=== PATIENT | female | born 1955 | race Caucasian/White ===

== ENCOUNTER 2022-10-13 11:46 | Outpatient (REF) | payer MEDICARE, SELFPAY ==
[2022-10-13 13:52] LABS: Hematocrit 41.2 % (37.0-47.0); Hemoglobin 12.5 g/dl (12.0-16.0); Mean Corpuscular HGB Conc 30.3 g/dl (31.0-35.0); Mean Corpuscular Hemoglobin 22.1 pg (27.0-33.0); Mean Corpuscular Volume 72.9 fL (80.0-98.0); Mean Platelet Volume 11.4 fL (9.4-12.3); Platelet Count 228 X10*3/uL (160-400); Red Blood Count 5.65 X10*6/uL (4.20-5.50); Red Cell Distribution Width 16.3 % (11.0-16.0); White Blood Count 7.6 X10*3/uL (4.8-10.8)
[2022-10-13 14:11] LABS: Alanine Aminotransferase 21 U/L (0-31); Albumin Level 4.4 g/dL (3.5-5.0); Alkaline Phosphatase 99 U/L (39-117); Anion Gap 14 (12-20); Aspartate Amino Transferase 17 U/L (5-31); Bilirubin Total 0.5 mg/dL (0.0-1.0); Blood Urea Nitrogen 20 mg/dL (9-16); Calcium 9.4 mg/dL (8.4-10.2); Carbon Dioxide 24 mmol/L (22-29); Chloride 110 mmol/L (96-108); Cholesterol 260 mg/dL; Estimated Glomerular Filt Rate > 60; Glucose Fasting 98 mg/dL (60-99); HDL Cholesterol 41 mg/dL; LDL Cholesterol Calculated 168 mg/dl; Potassium 4.6 mmol/L (3.3-5.1); Sodium 143 mmol/L (135-145); Total Protein 6.9 g/dL (6.5-8.0); Triglycerides 255 mg/dL
[2022-10-13 14:26] LABS: TSH reflex Free T4 1.87 uIU/mL (0.32-4.0)
== END 2022-10-13 11:47 | disposition home or self-care (01) ==
LOC: HO.WFDLDS 11:46
PROVIDERS: Visit Provider Nurse Practitioner Family
DX: Z00.00 Encounter for general adult medical examination without abnormal findings (principal); Z20.2 Contact with and (suspected) exposure to infections with a predominantly sexual mode of transmission
CPT/HCPCS: 36415; 80053; 80061; 84443; 85027

== ENCOUNTER 2022-11-10 11:40 | Outpatient (REF) | payer MEDICARE, SELFPAY ==
[2022-11-10 14:33] LABS: Hematocrit 39.8 % (37.0-47.0); Hemoglobin 12.1 g/dl (12.0-16.0); Mean Corpuscular HGB Conc 30.4 g/dl (31.0-35.0); Mean Corpuscular Hemoglobin 22.7 pg (27.0-33.0); Mean Corpuscular Volume 74.5 fL (80.0-98.0); Mean Platelet Volume 12.5 fL (9.4-12.3); Platelet Count 231 X10*3/uL (160-400); Red Blood Count 5.34 X10*6/uL (4.20-5.50); Red Cell Distribution Width 16.2 % (11.0-16.0); White Blood Count 6.9 X10*3/uL (4.8-10.8)
[2022-11-10 14:46] LABS: Cholesterol 178 mg/dL; HDL Cholesterol 41 mg/dL; Iron 77 mcg/dL (30-160); LDL Cholesterol Calculated 95 mg/dl; Percent Iron Saturation 29 % (15-50); Total Iron Binding Capacity 263 mcg/dL (228-428); Triglycerides 212 mg/dL; Unsaturated Iron Binding 186 ug/dL
[2022-11-10 14:53] LABS: Ferritin 235 ng/mL (10-250)
[2022-11-10 15:38] LABS: Immature Retic Fraction 11.7 % (3.0-15.9); Retic HGB Equivalent 26.9 pg (30.0-35.0); Reticulocyte Percent 1.2 % (0.5-1.8); Reticulocytes Absolute 0.065 X10*6/uL (0.026-0.095)
== END 2022-11-10 11:41 | disposition home or self-care (01) ==
LOC: HO.WFDLDS 11:40
PROVIDERS: Visit Provider Nurse Practitioner Family
DX: D64.9 Anemia, unspecified (principal); E78.5 Hyperlipidemia, unspecified
CPT/HCPCS: 36415; 80061; 82728; 83540; 85027; 85045

== ENCOUNTER 2022-11-19 13:16 | Outpatient (REF) | payer MEDICARE, SELFPAY ==
--- NOTE | ~2022-11-19 | CT_ITS ---
EXAMINATION: CT CHEST SCREENING CLINICAL INFORMATION: Current smoker. 47 pack year history. COMPARISON: None available. TECHNIQUE: Multidetector volumetric CT imaging of the chest is performed without contrast using low dose technique. Additional 2D coronal and sagittal reformatted images and axial 3D maximum intensity projection (MIP) images are generated on the CT workstation. This CT examination was performed using dose optimization techniques as appropriate, variously including the following: *Automated exposure control *Adjustment of mA and/or kV according to patient size (this includes techniques or standardized protocols for targeted exams where dose is matched to indication/reason for exam; i.e. extremities or head) *Use of iterative reconstruction technique DLP: 44 mGy-cm FINDINGS: LUNGS: I'll emphysema. Increased groundglass attenuation and reticular markings in the medial right lower lobe adjacent to bony osteophyte, question evidence of early or interstitial disease versus scarring or compressive atelectasis related to bony osteophyte. No pulmonary nodule. No endobronchial or endotracheal lesion. MEDIASTINUM: The mediastinum is normal. CORONARY ARTERY CALCIFICATION: Mild PLEURA: There is no pleural effusion. No pleural mass or thickening. AXILLA: No lymphadenopathy. UPPER ABDOMEN: Unremarkable OSSEOUS STRUCTURES: Mild degenerative changes of the spine. CT/CT lung screening IMPRESSION: Mild emphysema. Question early changes of interstitial lung disease at the right lung base. Mild coronary artery calcification. ASSESSMENT: Lung-RADS category 2: Benign RECOMMENDATION: Annual low-dose chest CT follow-up recommended.
== END 2022-11-19 13:17 | disposition home or self-care (01) ==
LOC: HO.CT 13:16
PROVIDERS: PCP Nurse Practitioner Family; Visit Provider Physician Assistant Medical
DX: Z12.2 Encounter for screening for malignant neoplasm of respiratory organs (principal); F17.210 Nicotine dependence, cigarettes, uncomplicated
CPT/HCPCS: 71271; G0296

== ENCOUNTER 2022-12-03 13:40 | Outpatient (REF) | payer MEDICARE, SELFPAY ==
--- NOTE | ~2022-12-03 | MM_ITS ---
EXAMINATION: MM SCREENING DIGITAL BREAST TOMOSYNTHESIS, BILATERAL CLINICAL INFORMATION: Screening. Asymptomatic. The lifetime risk of breast cancer based on the Tyrer-Cuzick Model is 7.4%. COMPARISON: Mammography: This study is compared with prior exams dating back to 2019. TECHNIQUE: Digital breast tomosynthesis is performed in both the craniocaudal and mediolateral oblique views along with computer-aided detection (CAD). Synthesized 2D images are generated from the tomosynthesis. FINDINGS: There are scattered areas of fibroglandular density (ACR BI-RADS breast composition Category b). There are no significant masses, abnormal calcifications, or other abnormalities. MM/MM tomosynthesis screening BI IMPRESSION: No mammographic evidence of malignancy. ASSESSMENT: BI-RADS BI-RADS 1 - Negative RECOMMENDATION: Routine annual mammography screening. 1 year F/U This examination should not preclude the clinical evaluation of a suspicious palpable abnormality. This patient's information was entered into a reminder system with a target due date for their next mammogram.
--- NOTE | ~2022-12-03 | MM_ITS ---
EXAMINATION: BONE DENSITOMETRY CLINICAL INDICATION: Menopause. COMPARISON: This is the patient's baseline examination. TECHNIQUE: Using a [employer] DXA System (software version: 13.1) manufactured by [employer], dual-energy x-ray absorptiometry was performed of the lumbar spine and left hip. The images are of good technical quality. Summary results are attached. FINDINGS: LEFT FEMUR, NECK: BMD 0.849 g/cm2, Z-score 0.1, T-score -1.4, osteopenia. LEFT FEMUR, TOTAL: BMD 0.921 g/cm2, Z-score 0.5, T-score -0.7, normal. AP SPINE L1-L4: BMD 1.078 g/cm2, Z-score 0.7, T-score -0.8, normal. IDENTIFIED RISK FACTORS: Early menopause, osteoporosis, secondary osteoporosis, tobacco use (current smoker). HISTORY OF FRACTURE: None listed. MEDICATIONS: None listed. MM/XR DEXA axial skeleton IMPRESSION: 1. DIAGNOSIS: Osteopenia based on the lowest T-score value of -1.4 in the femoral neck applying World Health Organization criteria. 2. 10-YEAR FRACTURE RISK PREDICTION, FRAX: Major osteoporotic fracture (clinical spine, forearm, hip or shoulder) 5.0%. Hip fracture 0.8%. 3. Treatment Recommendations: NOF guidelines recommend consideration for treatment in postmenopausal women and men age 50 and older presenting with the following: -A hip or vertebral (clinical or morphometric) fracture. -T-score less than or equal to -2.5 at the femoral neck or spine after appropriate evaluation to exclude secondary causes. -Low bone mass at the hip or spine and a 10-year fracture probability by FRAX of greater than or equal to 3% for hip fracture or greater than or equal to 20% for major osteoporotic fracture based on the [place] adapted WHO algorithm. 4. Other Recommendations: All treatment decisions require clinical judgment and consideration of individual patient factors, including patient preferences, comorbidities, previous drug use, risk factors not captured in the FRAX model (e.g. frailty, falls, vitamin D deficiency, increased bone turnover, interval significant decline in bone density) and possible under or overestimation of fracture risk by FRAX. Additional medical evaluation for secondary cause of low bone mineral density may be appropriate. FUTURE SCAN RECOMMENDATION: People with diagnosed cases of osteoporosis or at high risk for fracture should have regular bone mineral density tests. For patients eligible for Medicare, routine testing is allowed once every 2 years. The testing frequency can be increased to one year for patients who have rapidly progressing disease, those who are receiving or discontinuing medical therapy to restore bone mass, or have additional risk factors.
== END 2022-12-03 13:41 | disposition home or self-care (01) ==
LOC: HO.MAMMO 13:40
PROVIDERS: PCP Nurse Practitioner Family; Visit Provider Nurse Practitioner Family
DX: Z12.31 Encounter for screening mammogram for malignant neoplasm of breast (principal); Z13.820 Encounter for screening for osteoporosis; Z78.0 Asymptomatic menopausal state
CPT/HCPCS: 77063; 77067; 77080

== ENCOUNTER → 2022-12-03 14:15 | Outpatient (BNV) | payer MEDICARE, SELFPAY | PROVIDERS: PCP Nurse Practitioner Family; Visit Provider Radiology Diagnostic Radiology | DX: Z12.31 Encounter for screening mammogram for malignant neoplasm of breast (principal) | CPT/HCPCS: 77063; 77067 ==

== ENCOUNTER 2022-12-13 10:52 | Outpatient (REF) | payer MEDICARE, SELFPAY ==
[2022-12-13 14:29] LABS: Immature Retic Fraction 10.9 % (3.0-15.9); Retic HGB Equivalent 25.8 pg (30.0-35.0); Reticulocyte Percent 0.9 % (0.5-1.8); Reticulocytes Absolute 0.049 X10*6/uL (0.026-0.095)
[2022-12-13 15:40] LABS: Iron 73 mcg/dL (30-160); Percent Iron Saturation 29 % (15-50); Total Iron Binding Capacity 248 mcg/dL (228-428); Unsaturated Iron Binding 175 ug/dL
[2022-12-13 15:42] LABS: Ferritin 238 ng/mL (10-250)
[2022-12-13 15:56] LABS: Folate 9.8 ng/mL (> or = 4.0); Vitamin B12 441 pg/mL (200-900)
[2022-12-14 22:57] LABS: Erythropoietin (EPO) 8.3 mIU/mL (2.6-18.5)
== END 2022-12-13 10:53 | disposition home or self-care (01) ==
LOC: HO.WFDLDS 10:52
PROVIDERS: Visit Provider Nurse Practitioner Family
DX: D64.9 Anemia, unspecified (principal)
CPT/HCPCS: 36415; 82607; 82668; 82728; 82746; 83540; 85045

== ENCOUNTER → 2022-12-14 13:10 | Outpatient (BNVA) | payer MEDICARE, SELFPAY | PROVIDERS: PCP Nurse Practitioner Family; Visit Provider Physician Assistant ==

== ENCOUNTER 2022-12-28 14:47 | Outpatient (AMB) | payer MEDICARE, SELFPAY ==
[2022-12-28 14:55] VITALS: BP 134/66; PULSE 77; RESP 12; TEMP 36.1; O2SAT 99; BMI 29.1
--- NOTE | 2022-12-28 14:55 | MHC.PC.OV ---
Vital Signs 12/28/22 14:55 Height 5 ft 2 in Weight 159 lb 4 oz BMI 29.1 BP 134/66 Blood Pressure Location Rt brachial Position Sitting Respiration 12 Pulse 77 Pulse Source Pulse Oximeter Temp 97 F Temp Source Temporal Artery Scan Pulse Oximetry (%) 99 Oxygen Delivery Method Room Air Intake Visit Reasons: 6 wks HLD, neck pain, anemia Intake Note: Patient states that she is still concerned about the numb feeling she gets in her arms. Internet Marketer Required: No Accompanied by: Self / Same As Patient Allergies Penicillins Allergy (Mild, Verified 12/28/22 15:05) Rash Medication List - Last Reconciled 12/28/22 by Susan Maria CNP atorvastatin 20 mg PO BEDTIME 30 days bupropion HCl (Wellbutrin SR) 150 mg PO BID 30 days gabapentin 300 mg PO BID 30 days naproxen 500 mg PO BID PRN 30 days Tobacco use date assessed: 10/28/22 Fall risk assessment: 1 Fall in past year Last assessed Fall Risk: 12/28/22 Dental Screening Did you have a dental visit in the last 12 months?: Yes Did you have a dental problem in the last 6 months where you did not have access to dental care?: No Was dental information given to patient?: Patient has dentist HPI HPI Comments History of Present Illness Details 67-year-old female presents for hyperlipidemia, anemia, and neck pain follow-up. He was referred to Hematology for h/o anemia. She recently had normal labs including iron studies. Per motor vehicle assembler, Dr. Cullen labs are currently normal and therefore patient does not need consultation at this time. She reports continued intermittent numbness to her bilateral fingers especially upon waking up in the morning and while lying down holding a book over her head. No acute symptoms at this time. She notes she stopped smoking last month while taking Welbutrin which was ordered for smoking cessation. [facility] Medical History Anemia Hyperlipidemia Nicotine dependence, cigarettes, uncomplicated Postmenopausal Surgical History History of umbilical hernia repair Family History Father Prostate cancer Mother Cardiac arrest Social History Household Members: Family Both parents involved: No Caregiver staying overnight: No Housing: House Are you a primary healthcare market consultant to a significant other at home: No Do you presently have visiting nurse or other home services: No 75 years or older and lives alone: No Alcohol intake: former Patient Tobacco Use Status: Former Tobacco user Cigarettes Per Day: 10 Years Smoked: onset 20yo, 1ppd x 47yrs, now 1/2ppd, 45pyh e-Cigarette/Vaping Use: Never Used service: No Current occupational status: retired Cognitive needs: No Hearing needs: No Vision needs: No Review of Systems Const Details: Const Denies chills, Denies fatigue, Denies fever(s), Denies headache(s) and Denies weakness ENT Denies dizziness and Denies headache(s) Card Denies chest pain, Denies lightheadedness, Denies dyspnea and Denies other (Palpitations) Resp Denies cough, Denies dyspnea, Denies wheezing and Denies other ( shortness of breath) GI Denies abdominal pain, Denies melena, Denies hematochezia, Denies change in bowel habits, Denies dyspepsia and Denies nausea Denies hematuria and Denies dysuria Musc Denies abnormal gait, Denies myalgias, Denies arthralgias, Denies numbness and Denies tingling Skin/Breast Denies rash, Denies unusual bruising and Denies wounds Neuro Denies abnormal gait, Denies dizziness, Denies headache(s), Denies memory loss, Denies numbness, Denies Sensory deficit (Neuro), Denies tingling and Denies weakness Psych Denies anxiety, Denies depression, Denies memory loss Endo Denies cold intolerance, Denies fatigue, Denies heat intolerance, Denies polydipsia and Denies polyuria Aller/Immun Denies wheezing Physical exam (Primary Care) Vital Signs: Last Vital Signs Temp 97 F 12/28/22 14:55 Pulse 77 12/28/22 14:55 Resp 12 12/28/22 14:55 BP 134/66 12/28/22 14:55 Pulse Ox 99 12/28/22 14:55 Oxygen Delivery Method Room Air 12/28/22 14:55 BMI result Body Mass Index 29.1 Tobacco/Smoking Status: Tobacco use Status Tobacco use date assessed 10/28/22 12/28/22 15:04 Patient Tobacco Use Status Former Tobacco user 12/28/22 15:04 e-Cigarette/Vaping Use Never Used 12/28/22 15:04 Const Other: General: no acute distress and well developed Nutritional Appearance: well nourished Orientation/consciousness: patient oriented x3 [facility] Head: Yes normocephalic and Yes atraumatic Eyes General: appearance normal, both eyes and all related structures Pupils: Equal, round and reactive pupils present EOM: EOMs intact bilaterally Resp Effort & Inspection: normal respiratory effort Auscultation: clear to auscultation bilaterally Cardio Rate: regular rate Rhythm: regular rhythm Heart sounds: S1 normal heart sound present, S2 normal heart sound present, no gallops, no murmurs and no rubs GI Palpation (GI): No Abdominal aortic bruit present, Soft to palpation, nontender, No hepatosplenomegaly present and No Rebound tenderness present Auscultation: normal bowel sounds General: Yes no CVA tenderness Back/Spine/Pelvis Back: no CVA tenderness Cervical Spine: cervical ROM normal and No Cervical spine tenderness Thoracic/Lumbar Spine: thoraco-lumbar ROM normal, No pain with thoraco-lumbar ROM, No thoracic spinal tenderness and No lumbar spinal tenderness Extrem General: Yes normal to inspection, No edema and No calf tenderness Skin General: warm and dry. Normal skin color. Normal skin turgor Lesions: no lesions Rashes: no rashes Trauma: no lacerations or abrasions Wounds: no wounds Nails: normal Neuro General: patient oriented x3, gait normal and no focal neuro deficit Cranial nerves: Yes Equal, round and reactive pupils present Cognition (Neuro): normal cognition Gait exam (Neuro): Normal gait present Sensory Exam: No Sensory deficit (Neuro) Psych Appearance: grossly normal Affect: normal affect Attitude: cooperative Thought process: Normal thought process present Assessment and Plan Assessment & Plan (1) Hyperlipidemia: Code(s): E78.5 - Hyperlipidemia, unspecified Plan: Current lipid levels improved from previous Continue to take atorvastatin as prescribed Limit foods high in saturated fat and avoid foods high in trans fat Follow-up in 1 month for complete physical exam Verbalized understanding and agreed with treatment plan. (2) Anemia: Code(s): D64.9 - Anemia, unspecified Plan: Current H&H and iron profile is normal Return with symptoms such as fatigue or weakness Verbalized understanding and agreed with the plan. (3) Bilateral hand numbness: Code(s): R20.0 - Anesthesia of skin Plan: Reports continued intermittent numbness to her bilateral fingers especially upon waking up in the morning and while lying down holding a book over her head. Advised to get outstanding x-ray of the neck done Avoid strenuous activities such as prolonged elevation of her arms while reading Continue to take naproxen and gabapentin as prescribed Follow-up with worsening or new symptoms Verbalized understanding and agreed with treatment plan. Coding Level of Care Code Est Pt Level 3 (88988) Diagnoses Hyperlipidemia E78.5 Anemia D64.9 Bilateral hand numbness R20.0
== END 2022-12-28 15:33 | disposition home or self-care (01) ==
PROVIDERS: PCP Nurse Practitioner Family; Visit Provider Nurse Practitioner Family
DX: E78.5 Hyperlipidemia, unspecified (principal); D64.9 Anemia, unspecified; R20.0 Anesthesia of skin
CPT/HCPCS: 99213

== ENCOUNTER 2023-01-18 13:24 | Outpatient (REF) | payer MEDICARE, SELFPAY ==
--- NOTE | ~2023-01-18 | XR_ITS ---
EXAMINATION: XR SOFT TISSUE NECK CLINICAL INDICATION: Cervicalgia COMPARISON: None available. TECHNIQUE: 2 views of the soft tissue neck were obtained. FINDINGS: Soft tissue films of the neck demonstrate a normal larynx, pharynx and upper trachea. No soft tissue swelling or opaque foreign body is demonstrated. Disc spaces and facet joints are well-maintained. XR/XR soft tissue neck IMPRESSION: Unremarkable examination.
--- NOTE | ~2023-01-18 | XR_ITS ---
EXAMINATION: XR SHOULDER, RIGHT CLINICAL INFORMATION: Right shoulder paresthesias COMPARISON: None available. TECHNIQUE: AP external rotation, Grashey, scapular Y, and axillary views of the right shoulder. FINDINGS: The bones and soft tissues are normal. No fracture. Glenohumeral and acromioclavicular alignment is anatomic with normal joint space. No abnormal soft tissue calcifications. XR/XR shoulder RT min 2V IMPRESSION: Normal right shoulder.
== END 2023-01-18 13:25 | disposition home or self-care (01) ==
LOC: HO.XRAY 13:24
PROVIDERS: PCP Nurse Practitioner Family; Visit Provider Nurse Practitioner Family
DX: R20.0 Anesthesia of skin (principal); M54.2 Cervicalgia
CPT/HCPCS: 70360; 73030

== ENCOUNTER 2023-03-25 08:53 | Outpatient (AMB) | payer MEDICARE, SELFPAY ==
[2023-03-25 08:56] VITALS: BP 154/70; PULSE 75; RESP 13; TEMP 36.6; O2SAT 98
--- NOTE | 2023-03-25 08:56 | A.OFFPC_ITS ---
Vital Signs 03/25/23 08:56 03/25/23 09:23 Height 5 ft 2 in Weight 164 lb 2 oz BMI 30.0 BP 154/70 H 150/70 H Blood Pressure Location Rt brachial Rt brachial Position Sitting Sitting Respiration 13 Pulse 75 Pulse Source Pulse Oximeter Temp 97.8 F Temp Source Oral Pulse Oximetry (%) 98 Oxygen Delivery Method Room Air Intake Visit Reasons: follow up medication Intake Note: Patient is here to follow up regarding medication. Patient reports she stopped taking Gabapentin due to eating a drastic amount of food, hallucinations, and overall not feeling right. Patient reports she needs a refill on Atorvastatin and Naproxen and she also needs to restart the Buproprion. Manager Of Purchasing Required: No Accompanied by: Self / Same As Patient Allergies Penicillins Allergy (Mild, Verified 03/25/23 09:04) Rash Medication List - Last Reconciled 03/25/23 by Susan Maria CNP atorvastatin 20 mg PO BEDTIME 30 days bupropion HCl (Wellbutrin SR) 150 mg PO BID 30 days naproxen 500 mg PO BID PRN 30 days Tobacco use date assessed: 03/25/23 Fall risk assessment: No Falls in past year Last assessed Fall Risk: 03/25/23 Dental Screening Dental Screen Date: 03/25/23 Did you have a dental visit in the last 12 months?: Yes Did you have a dental problem in the last 6 months where you did not have access to dental care?: No Was dental information given to patient?: Patient has dentist HPI HPI Comments History of Present Illness Details 68-year-old female presents with request for medication management. She was prescribed gabapentin for bilateral hand numbness. She reports adverse reaction to gabapentin which includes increased appetite, visual hallucinations, and not feeling right. She request refills of atorvastatin, naproxen, and bup ropion. She states she resumed smoking cigarette a month ago and has been smoking 5 cigarettes daily. She denies acute symptoms at this time. She reports history of hypertension and states she does not recall being on antihypertensive medication. She notes that her former PCP performed an EKG 3 years ago and she was informed she had a-fib. She states that no treatment was recommended and she never followed up. [facility], [facility] Medical History Nicotine dependence, cigarettes, uncomplicated Anemia Hyperlipidemia Postmenopausal Surgical History History of umbilical hernia repair Family History Father Prostate cancer Mother Cardiac arrest Social History Household Members: Family Both parents involved: No Caregiver staying overnight: No Housing: House Are you a primary animal care giver to a significant other at home: No Do you presently have visiting nurse or other home services: No 75 years or older and lives alone: No Alcohol intake: former Patient Tobacco Use Status: Current everyday Tobacco user Tobacco use type: Cigarette Cigarettes Per Day: 5 Years Smoked: onset 20yo, 1ppd x 47yrs, now 1/2ppd, 45pyh, Restarted 03/20/23 e-Cigarette/Vaping Use: Never Used service: No Current occupational status: retired Cognitive needs: No Hearing needs: No Vision needs: No Review of Systems Const Details: Const Denies chills, Denies fatigue, Denies fever(s), Denies headache(s) and Denies weakness ENT Denies dizziness and Denies headache(s) Card Denies chest pain, Denies lightheadedness, Denies dyspnea and Denies other (Palpitations) Resp Denies cough, Denies dyspnea, Denies wheezing and Denies other ( shortness of breath) GI Denies abdominal pain, Denies melena, Denies hematochezia, Denies change in bowel habits, Denies dyspepsia and Denies nausea Denies hematuria and Denies dysuria Musc Denies abnormal gait, Denies myalgias, Denies arthralgias, Denies numbness and Denies tingling Skin/Breast Denies rash, Denies unusual bruising and Denies wounds Neuro Denies abnormal gait, Denies dizziness, Denies headache(s), Denies memory loss, Denies numbness, Denies Sensory deficit (Neuro), Denies tingling and Denies weakness Psych Denies anxiety, Denies depression, Denies memory loss Endo Denies cold intolerance, Denies fatigue, Denies heat intolerance, Denies polydipsia and Denies polyuria Aller/Immun Denies wheezing Physical exam (Primary Care) Vital Signs: Last Vital Signs Temp 97.8 F 03/25/23 08:56 Pulse 75 03/25/23 08:56 Resp 13 03/25/23 08:56 BP 150/70 H 03/25/23 09:23 Pulse Ox 98 03/25/23 08:56 Oxygen Delivery Method Room Air 03/25/23 08:56 BMI result Body Mass Index 30.0 Tobacco/Smoking Status: Tobacco use Status Tobacco use date assessed 03/25/23 03/25/23 09:07 Patient Tobacco Use Status Current everyday Tobacco 03/25/23 09:07 Tobacco use type Cigarette 03/25/23 09:06 e-Cigarette/Vaping Use Never Used 03/25/23 09:04 Const Other: General: no acute distress and well developed Nutritional Appearance: well nourished Orientation/consciousness: patient oriented x3 HENMT Head: Yes normocephalic and Yes atraumatic Eyes General: appearance normal, both eyes and all related structures Pupils: Equal, round and reactive pupils present EOM: EOMs intact bilaterally Resp Effort & Inspection: normal respiratory effort Auscultation: clear to auscultation bilaterally Cardio Rate: regular rate Rhythm: regular rhythm Heart sounds: S1 normal heart sound present, S2 normal heart sound present, no gallops, no murmurs and no rubs GI Palpation (GI): No Abdominal aortic bruit present, Soft to palpation, nontender, No hepatosplenomegaly present and No Rebound tenderness present Auscultation: normal bowel sounds General: Yes no CVA tenderness Back/Spine/Pelvis Back: no CVA tenderness Cervical Spine: cervical ROM normal and No Cervical spine tenderness Thoracic/Lumbar Spine: thoraco-lumbar ROM normal, No pain with thoraco-lumbar ROM, No thoracic spinal tenderness and No lumbar spinal tenderness Extrem General: Yes normal to inspection, No edema and No calf tenderness Skin General: warm and dry. Normal skin color. Normal skin turgor Lesions: no lesions Rashes: no rashes Trauma: no lacerations or abrasions Wounds: no wounds Nails: normal Neuro General: patient oriented x3, gait normal and no focal neuro deficit Cranial nerves: Yes Equal, round and reactive pupils present Cognition (Neuro): normal cognition Gait exam (Neuro): Normal gait present Sensory Exam: No Sensory deficit (Neuro) Psych Appearance: grossly normal Affect: normal affect Attitude: cooperative Thought process: Normal thought process present Assessment and Plan Assessment & Plan (1) Hypertension: Code(s): I10 - Essential (primary) hypertension Qualifiers: Hypertension type: primary hypertension Qualified Code(s): I10 - Essential (primary) hypertension Plan: Resting blood pressure is 150/70, above goal of less than 140/90 She reports history of hypertension but does not recall taking antihypertensive Amlodipine ordered. Take as prescribed. Instructed on adverse reaction to monitor and report Low-sodium diet encouraged Follow-up in 1 week for a nurse visit for blood pressure check Return in 1 month or sooner with symptoms or concerns Verbalized understanding and agreed with treatment plan. She reports history of AFib without treatment or follow-up Heart regular rate and rhythm EKG performed in the office and revealed normal sinus rhythm, normal axis, prolonged QT no hypertrophy, no ST-T changes Follow-up with symptoms or concerns. Would refer to Cardiology Verbalized understanding and agreed with treatment plan. (2) Hyperlipidemia: Code(s): E78.5 - Hyperlipidemia, unspecified Plan: Recent lipid levels was in October, improved from previous. Triglycerides 212, total cholesterol 178, LDL 95, HDL 41 Continue to take atorvastatin as prescribed Advised to limit foods high in saturated fat and avoid foods high trans fat Routine exercise encouraged Will recheck lipid levels. Advised to fast for 10-12 hours (may drink water home) and get blood work done before next visit Follow-up in 1 month Verbalized understanding and agreed with treatment plan. (3) Smoking 1/2 pack a day or less: Code(s): F17.210 - Nicotine dependence, cigarettes, uncomplicated Plan: She states she resumed smoking cigarette a month ago and has been smoking 5 cigarettes daily Instructed on the health risks and complications of cigarette smoking Smoking cessation encouraged Wellbutrin refilled. Advised to take as prescribed Follow-up in 1 month return sooner with symptoms or concerns Verbalized understanding and agreed with treatment plan. Medications: New amlodipine 2.5 mg PO DAILY 30 days 30 tabs 3RF Refilled bupropion HCl (Wellbutrin SR) Take 150 mg daily for the first 3 days, then 150 mg BID 150 mg PO BID 60 tabs 2RF 30 days Coding Level of Care Code Est Pt Level 4 (84054) Diagnoses Primary hypertension I10 Hypertension type: primary hypertension Hyperlipidemia E78.5 Smoking 1/2 pack a day or less F17.210
[2023-03-25 09:23] VITALS: BP 150/70
== END 2023-03-25 09:38 | disposition home or self-care (01) ==
PROVIDERS: PCP Nurse Practitioner Family; Visit Provider Nurse Practitioner Family
DX: I10 Essential (primary) hypertension (principal); E78.5 Hyperlipidemia, unspecified; F17.210 Nicotine dependence, cigarettes, uncomplicated
CPT/HCPCS: 99214

== ENCOUNTER 2023-03-25 13:00 | Outpatient (RCR) | payer MEDICARE, SELFPAY ==
[2023-03-15 13:03] VITALS: BP 150/80; PULSE 75; O2SAT 96
--- NOTE | 2023-03-22 11:56 | MHC.PT.EP ---
[facility] [place] [facility] [place] [facility] [place] [facility] [address] Gabriel Murphy [address] [phone] F: [phone] F: [phone] F: [phone] F: [phone] Physical Therapy Plan of Care Date of Evaluation: 03/15/23 Date of Surgery: Diagnosis: M54.2 Cervicalgia, R20.0 Anesthesia of skin, Neck pain on R side *Numbness of upper extremity signed by Susan Maria CNP date of referral 11/02/22 Assessment: Pt is a RHD 68 y/o female with PMH history of hyperlipidemia, umbilical hernia repair, and (HTN and AFIB per pt not on medical record). Pt presents with elevated blood pressure today. Pt expressing history of R sided neck pain with R>L UE daily parathesias which radiates into her whole hand on the right and down side of L shoulder. Pt also expressing left lateral arm sx. Pt reports disturbed sleep secondary to her symptoms. Pt is unable to reach overhead due to her sx. Pt currently presents with elevated blood pressure Pt denies history of headaches, DTRs 2+ symmetrical bicep/tricep. Neuro exam was negative for any strength asymmetries ROM R UE slightly more painful end ranges IR>ER vs L, (+) cervical quadrant testing. Pt will be seen in PT twice weekly to address sx which appear consistent with cervical radiculopathy. Pt exhibits good rehab potential. Frequency and Duration: The patient will be seen 2x/week x 4 weeks Short Term Goals: 1. Pt will express centralization of R UE sx to the height of the elbow. 2. Pt will demonstrate initiation/awareness of posture during ADLS/IADLS. 3. Pt will demonstrate improved sleep tolerance. 4. Increase strength of scapular stabilizers. Senior Care Goals: 1. Pt will demonstrate I HEP. 2. Pt will demonstrate centralization of sx. 3. Pt will resume sleep MOD I without R UE sx radiating down arm. 4. Strength lower and middle trap 5/5. 5. Demonstrate good lifting techniques/safe body mechanics 3:3 trials. Treatment Plan: Modalities to reduce pain, spasms and effusion. Manual therapy to restore motion and function. Therapeutic exercise to improve strength and flexibility. Neuromuscular re-education for posture and balance. Therapeutic activities to return to functional activities of daily living. Electronically signed by: Mary Clark PT, DPT Please sign and return to therapist. Thank you for your referral.
== END 2023-06-14 13:24 | disposition home or self-care (01) ==
LOC: HO.PTWFD 13:00
PROVIDERS: PCP Nurse Practitioner Family; Visit Provider Nurse Practitioner Family
DX: M54.2 Cervicalgia (principal); R20.0 Anesthesia of skin
CPT/HCPCS: 97110; 97140; 97162; 97535

== ENCOUNTER 2023-04-26 12:32 | Outpatient (AMB) | payer MEDICARE, SELFPAY ==
--- NOTE | 2023-04-26 12:35 | A.OFFPC_ITS ---
Vital Signs 04/26/23 12:36 04/26/23 13:01 Height 5 ft 2 in Weight 164 lb 2 oz BMI 30.0 BP 140/72 H 136/60 Blood Pressure Location Lt brachial Rt brachial Position Sitting Sitting Pulse 80 Pulse Source Pulse Oximeter Intake Visit Reasons: CPE, HLD, HTN, smoking ceassation Intake Note: Patient is here for her physical, hypertension and smoking cessation. Allergies Penicillins Allergy (Mild, Verified 04/26/23 12:48) Rash Medication List - Last Reconciled 04/26/23 by Susan Maria CNP amlodipine 2.5 mg PO DAILY 30 days atorvastatin 20 mg PO BEDTIME 30 days bupropion HCl (Wellbutrin SR) 150 mg PO BID 30 days naproxen 500 mg PO BID PRN 30 days Tobacco use date assessed: 04/26/23 Fall risk assessment: No Falls in past year Last assessed Fall Risk: 04/26/23 Dental Screening Dental Screen Date: 04/26/23 Did you have a dental visit in the last 12 months?: Yes Did you have a dental problem in the last 6 months where you did not have access to dental care?: No Was dental information given to patient?: Patient has dentist HPI HPI Comments History of Present Illness Details 68-year-old female presents for a comple te physical exam She admits to taking her medications as prescribed without adverse reactions She offers no complaints and denies acute symptoms at this time She notes that she currently smokes 4 cigarettes daily. She notes that she intends to completely stop smoking on 05/16/2023. She denies drinking alcohol or recreational drug use Last mammogram was in 11/2022: normal Last colonoscopy was over 10 years ago: benign polyps. She has an order for colonoscopy. She notes that the will call to schedule an appointment for colonoscopy next month She notes that her last pap smear test was at age 47: normal She notes that she has not been vaccinated for shingles or pneumonia Last Dexa scan was in 11/2022: osteopenia Last LDCT was in 11/2022: benign [facility] Medical History Nicotine dependence, cigarettes, uncomplicated Anemia Hyperlipidemia Postmenopausal Surgical History History of umbilical hernia repair Family History Father Prostate cancer Mother Cardiac arrest Social History Household Members: Family Both parents involved: No Caregiver staying overnight: No Housing: House Are you a primary skin care consultant to a significant other at home: No Do you presently have visiting nurse or other home services: No 75 years or older and lives alone: No Alcohol intake: former Patient Tobacco Use Status: Current everyday Tobacco user Tobacco use type: Cigarette Cigarettes Per Day: 5 Years Smoked: onset 20yo, 1ppd x 47yrs, now 1/2ppd, 45pyh, Restarted 03/20/23 e-Cigarette/Vaping Use: Never Used service: No Current occupational status: retired Cognitive needs: No Hearing needs: No Vision needs: No Review of Systems Const Details: Denies chills, Denies fatigue, Denies fever(s), Denies headache(s) and Denies weakness HEENT Denies change in vision, Denies dizziness, Denies headache(s), Denies hearing loss, Denies nasal congestion, Denies sinus pain, Denies sinus pressure and Denies sore throat Card Denies chest pain, Denies lightheadedness, Denies dyspnea and Denies other (palpitations) Resp Denies cough, Denies dyspnea and Denies wheezing GI Denies abdominal pain, Denies melena, Denies hematochezia, Denies change in bowel habits, Denies dyspepsia and Denies nausea Denies hematuria and Denies dysuria Musc Denies abnormal gait, Denies myalgias, Denies arthralgias, Denies numbness and Denies tingling Skin/Breast Denies rash, Denies unusual bruising and Denies wounds Neuro Denies abnormal gait, Denies dizziness, Denies headache(s), Denies memory loss, Denies numbness, Denies Sensory deficit (Neuro), Denies tingling and Denies weakness Psych Denies anxiety, Denies depression and Denies memory loss Endo Denies cold intolerance, Denies fatigue, Denies heat intolerance, Denies polydipsia and Denies polyuria Cory/Lymph Denies easy bleeding and Denies easy bruising Aller/Immun Denies wheezing Physical exam (Primary Care) Vital Signs: Last Vital Signs Pulse 80 12/12/23 12:36 BP 140/72 H 04/26/23 12:36 BMI result Body Mass Index 30.0 Tobacco/Smoking Status: Tobacco use Status Tobacco use date assessed 04/26/23 04/26/23 12:40 Patient Tobacco Use Status Current everyday Tobacco 04/26/23 12:38 Tobacco use type Cigarette 04/26/23 12:38 e-Cigarette/Vaping Use Never Used 04/26/23 12:38 Const Other: General: no acute distress, well developed, alert and awake Nutritional Appearance: well nourished Orientation/consciousness: patient oriented x3 HENMT Head: Yes normocephalic and Yes atraumatic Ears: hearing grossly normal bilaterally and TM's normal bilaterally General nose exam: Normal external nose present and Normal nares present Mouth: Normal oral and palatal mucosa present and moist mucous membranes Teeth and gingiva: dentition normal Throat: Yes oropharynx normal Eyes Pupils: Equal, round and reactive pupils present and Pupil accommodation reflex normal EOM: EOMs intact bilaterally Neck Neck: Yes normal visual inspection, Yes no lymphadenopathy and Yes trachea midline Thyroid: Thyroid normal Carotids: no bruits Lymphatic: no lymphadenopathy noted Chest Chest palpation & inspection: normal inspection of the chest Resp Effort & Inspection: normal respiratory effort Auscultation: clear to auscultation bilaterally Cardio Rate: regular rate Rhythm: regular rhythm Heart sounds: S1 normal heart sound present, S2 normal heart sound present, no gallops, no murmurs and no rubs Bruits: no abdominal aortic bruits and no carotid bruits GI Palpation (GI): No Abdominal aortic bruit present, Soft to palpation, nontender, No hepatosplenomegaly present and No Rebound tenderness present Auscultation: normal bowel sounds General: Yes no CVA tenderness Back/Spine/Pelvis Back: no CVA tenderness Cervical Spine: cervical ROM normal and No Cervical spine tenderness Thoracic/Lumbar Spine: thoraco-lumbar ROM normal, No pain with thoraco-lumbar ROM, No thoracic spinal tenderness and No lumbar spinal tenderness Skin General: warm and dry. Normal skin color. Normal skin turgor Lesions: no lesions Rashes: no rashes Trauma: no lacerations or abrasions Wounds: no wounds Nails: normal Neuro General: patient oriented x3, gait normal and CN's II-XI intact bilaterally Cranial nerves: Yes Equal, round and reactive pupils present Cognition (Neuro): normal cognition Gait exam (Neuro): Normal gait present Motor exam (neuro): 5/5 motor strength present throughout Sensory Exam: No Sensory deficit (Neuro) Deep tendon reflexes (DTR's): Right patellar reflex intensity grade: 2+ and Left patellar reflex intensity grade: 2+ Extrem General: Yes normal to inspection, No edema and No calf tenderness Psych Appearance: grossly normal Affect: normal affect Attitude: cooperative Thought process: Normal thought process present Assessment and Plan Assessment & Plan (1) Normal physical examination, routine: Code(s): Z00.00 - Encounter for general adult medical examination without abnormal findings Plan: No significant physical restrictions or limitations noted Advised to follow-up in 1 month for hypertension and hyperlipidemia Return sooner with symptoms or concerns Verbalized understanding and agreed with treatment plan (2) Hypertension: Code(s): I10 - Essential (primary) hypertension Qualifiers: Hypertension type: primary hypertension Qualified Code(s): I10 - Essential (primary) hypertension Plan: Resting blood pressure is 136/60, within goal of less than 140/90 Will increase amlodipine to 5 mg daily. Take as prescribed Low-sodium diet encouraged Follow-up in 1 month or return sooner with symptoms or concerns Verbalized understanding and agreed with treatment plan (3) Hyperlipidemia: Code(s): E78.5 - Hyperlipidemia, unspecified Plan: Recent triglyceride level was elevated, 212, total cholesterol, LDL, and HDL levels were normal Will recheck lipid panel. Advised to fast for 10-12 hours, may drink water only, and get blood work done before her next visit Follow-up in 1 month Verbalized understanding and agreed with treatment plan (4) Pap smear for cervical cancer screening: Code(s): Z12.4 - Encounter for screening for malignant neoplasm of cervix Plan: She notes that her last pap smear test was at age 47: normal Referred to [facility] outside machinist apprentice for a Pap smear test (5) Vaccine counseling: Code(s): Z71.85 - Encounter for immunization safety counseling Plan: She has not been vaccinated for shingles or pneumonia Instructed on importance of vaccination and encouraged to get vaccinated for shingles and pneumonia Verbalized understanding and agreed with plan (6) Smoking 1/2 pack a day or less: Code(s): F17.210 - Nicotine dependence, cigarettes, uncomplicated Plan: She currently smokes 4 cigarettes daily. She notes that she intends to completely stop smoking on 05/16/2023 Instructed on the health risks and complications of cigarette smoking Smoking cessation encouraged Advised to take Wellbutrin as prescribed Follow-up in 1 month Verbalized understanding and agreed with the treatment plan (7) Osteopenia: Code(s): M85.80 - Other specified disorders of bone density and structure, unspecified site Plan: Vitamin D3 2000 units ordered. Advised to take as prescribed Verbalized understanding and agreed with the treatment plan Orders: Orders Lipid Panel Today E78.5 - Hyperlipidemia, unspecified Referrals [employer] [employer] Referral Z12.4 - Encounter for screening for malignant neoplasm of cervix Medications: New amlodipine 5 mg PO DAILY 30 days 30 tabs 3RF cholecalciferol (vitamin D3) 50 mcg PO DAILY 90 tabs 2RF 90 days Discontinued amlodipine Discontinued Reason: Doctor's Order 2.5 mg PO DAILY 30 days 30 tabs 3RF Coding Level of Care Code Est Pt Prev Care >65y(40111) Diagnoses Normal physical examination, routine Z00.00 Primary hypertension I10 Hypertension type: primary hypertension Hyperlipidemia E78.5 Pap smear for cervical cancer screening Z12.4 Vaccine counseling Z71.85 Smoking 1/2 pack a day or less F17.210 Osteopenia M85.80
[2023-04-26 12:36] VITALS: BP 140/72; PULSE 80
[2023-04-26 13:01] VITALS: BP 136/60
== END 2023-04-26 13:09 | disposition home or self-care (01) ==
PROVIDERS: PCP Nurse Practitioner Family; Visit Provider Nurse Practitioner Family
DX: Z00.00 Encounter for general adult medical examination without abnormal findings (principal); I10 Essential (primary) hypertension; E78.5 Hyperlipidemia, unspecified; Z71.85 Encounter for immunization safety counseling; F17.210 Nicotine dependence, cigarettes, uncomplicated; M85.80 Other specified disorders of bone density and structure, unspecified site
CPT/HCPCS: 99397

== ENCOUNTER 2023-05-26 13:38 | Outpatient (REF) | payer MEDICARE, SELFPAY ==
[2023-05-26 18:45] LABS: CT PCR NOT DETECTED (Not Detect.); NG PCR NOT DETECTED (Not Detect.)
[2023-05-27 11:48] LABS: BV Int Neg Control Negative (Negative); BV Int Pos Control Positive (Positive)
[2023-05-31 04:44] LABS: HPV mRNA E6/E7 rflx Not Detected (Not Detected)
== END 2023-05-26 13:39 | disposition home or self-care (01) ==
LOC: HO.LNP 13:38
PROVIDERS: PCP Nurse Practitioner Family; Visit Provider Obstetrics & Gynecology
DX: Z01.419 Encounter for gynecological examination (general) (routine) without abnormal findings (principal); Z20.2 Contact with and (suspected) exposure to infections with a predominantly sexual mode of transmission
CPT/HCPCS: 0353U; 87480; 87510; 87624; 87660; 88142

== ENCOUNTER 2023-05-26 13:38 | Outpatient (AMB) | payer MEDICARE, SELFPAY ==
--- NOTE | 2023-05-26 13:48 | MHC.OFFVIS ---
Intake Vital Signs 05/26/23 13:49 Height 5 ft 2 in Weight 163 lb BMI 29.8 BP 122/58 L Intake Visit Reasons: New patient annual/DO NOT RS Electrical Engineering Designer Required: No Information Interpreted: non-clinical & clinical Material Processor: Material Processor Present (Aidyn) Allergies Penicillins Allergy (Mild, Verified 05/26/23 13:51) Rash Is last menstrual period known: No Post menopausal: Yes Patient : No HPI HPI Comments History of Present Illness Details Presenting for annual exam. No complaints. Last Pap/HPV was 20 years ago according to the patient Last Mammogram was BI-RADS 1 in 12/05 No previous screening Colonoscopy Last DEXA scan was in the low risk category in 12/05 [facility] Medical History Nicotine dependence, cigarettes, uncomplicated Anemia Hyperlipidemia Postmenopausal Surgical History History of umbilical hernia repair Family History Father Prostate cancer Mother Cardiac arrest Sister Breast cancer Social History Household Members: Family Both parents involved: No Caregiver staying overnight: No Housing: House Are you a primary long term care pharmacist to a significant other at home: No Do you presently have visiting nurse or other home services: No 75 years or older and lives alone: No Alcohol intake: former Patient Tobacco Use Status: Current everyday Tobacco user Tobacco use type: Cigarette Cigarettes Per Day: 4 Years Smoked: onset 20yo, 1ppd x 47yrs, now 1/2ppd, 45pyh, Restarted 03/20/23 e-Cigarette/Vaping Use: Never Used Patient : No service: No Current occupational status: retired Cognitive needs: No Hearing needs: No Vision needs: No Female Reproductive History Menstrual Age of Menarche: 17 control method: none Total pregnancies: 3 Full term: 3 Number of Living Children: 3 Date of Mammogram: 12/03/22 Date of last Bone Density Screenin12/03/22 Review of Systems Const All systems reviewed & are unremarkable except as noted in HPI and below Card Reports as per HPI Resp Reports as per HPI GI Reports as per HPI and Reports no additional complaints Reports as per HPI Physical Exam Vital Signs: Last Vital Signs BP 122/58 L 05/26/23 13:49 BMI result Body Mass Index 29.8 Const General: cooperative, healthy appearing and comfortable Chest Chest palpation & inspection: normal inspection of the chest and normal palpation of entire chest wall Breast/axilla inspection: normal inspection of the breasts and normal inspection of the axillae Breast/axilla palpation: normal palpation of the breasts, normal palpation of the axillae and no axillary lymphadenopathy Resp Effort & Inspection: normal respiratory effort Auscultation: clear to auscultation bilaterally Percussion: percussion normal Cardio Palpation: normal PMI Rate: regular rate Rhythm: regular rhythm Heart sounds: no murmurs and no rubs Peripheral pulses: Peripheral pulses 2+ throughout GI Inspection: Yes normal to inspection Palpation (GI): Soft to palpation, nontender, no guarding, not rigid and No hepatosplenomegaly present Percussion: Yes normal to percussion Auscultation: normal bowel sounds Rectal Exam - Female: deferred General: Yes bladder normal to palpation External Female Exam: No lesion Speculum Exam - Vagina: normal appearance of the vagina, normal palpation, normal vaginal discharge and not erythematous Speculum Exam - Cervix: normal appearance of the cervix and normal palpation Bimanual exam- vagina & uterus: normal bimanual exam, normal palpation, uterine size normal, bladder normal to palpation, consistency normal and normal palpation Bimanual Exam- Adnexa, other: normal adnexae, no masses and no tenderness Assessment & Plan Assessment & Plan (1) Well woman exam: Code(s): Z01.419 - Encounter for gynecological examination (general) (routine) without abnormal findings Plan: Co testing done since the patient did not have adequate cervical cancer screening last 20 years Counseled the patient about the recommended dietary allowance of 1200 mg of Calcium & 800 IU of vitamin D. Instructions given the patient to schedule her next screening Mammogram in 12/06. The patient has her next screening colonoscopy scheduled in 10/06. The patient was instructed to perform monthly self-breast exams and to schedule an annual exam in a year; All questions answered and the patient verbalized understanding. Coding Level of Care Code New Pt Prev Care >65yr (29951) Diagnoses Well woman exam Z01.419
[2023-05-26 13:49] VITALS: BP 122/58; BMI 29.8
== END 2023-05-26 14:10 | disposition home or self-care (01) ==
LOC: HO.HWS 13:38
PROVIDERS: PCP Nurse Practitioner Family; Visit Provider Obstetrics & Gynecology
DX: Z01.419 Encounter for gynecological examination (general) (routine) without abnormal findings (principal)
CPT/HCPCS: 99387

== ENCOUNTER 2023-06-03 13:00 | Outpatient (AMB) | payer MEDICARE, SELFPAY ==
[2023-06-03 13:23] VITALS: BP 130/70; PULSE 78; RESP 13; TEMP 36.2; O2SAT 95; BMI 29.6
--- NOTE | 2023-06-03 13:23 | MHC.PC.OV ---
Vital Signs 06/03/23 13:23 Height 5 ft 2 in Weight 162 lb BMI 29.6 BP 130/70 Blood Pressure Location Rt brachial Position Sitting Respiration 13 Pulse 78 Pulse Source Pulse Oximeter Temp 97.2 F Temp Source Temporal Artery Scan Pulse Oximetry (%) 95 Oxygen Delivery Method Room Air Intake Visit Reasons: fever post quit smoking Glass Vial Filler Required: No Accompanied by: Self / Same As Patient Allergies Penicillins Allergy (Mild, Verified 06/03/23 13:34) Rash Medication List - Last Reconciled 06/03/23 by Susan Maria CNP amlodipine 5 mg PO DAILY 30 days atorvastatin 20 mg PO BEDTIME 30 days cholecalciferol (vitamin D3) 50 mcg PO DAILY 90 days diclofenac sodium 0.1% drps ophthalmic (eye) naproxen 500 mg PO BID PRN 30 days Tobacco use date assessed: 04/26/23 Fall risk assessment: No Falls in past year Last assessed Fall Risk: 06/03/23 Dental Screening Dental Screen Date: 06/03/23 Did you have a dental visit in the last 12 months?: Yes Did you have a dental problem in the last 6 months where you did not have access to dental care?: No Was dental information given to patient?: Patient has dentist HPI HPI Comments History of Present Illness Details 68 y/o female presents for a sick visit She notes that she was diagnosed with the flu on 05/10/2024 She reports foul smelling drainage from the right eye since the beginning of this month. She was evaluated at [facility] urgent care on 05/24/2023 and was prescribed diclofenac eye drops which has not provide relief. She reports initial right eye pain which has subsided. She notes dry, yellow crust around the right right eye upon waking up every morning. No head ache or visual disturbance. She notes she had fever last night with a temp 101.6. She also reports nonproductive cough for the past two days. She notes she did not have a cough when she was diagnosed with the flu She notes anxiety and depression symptoms for the past 3 weeks. She notes that her youngest daughter just started college. Her older daughter will be moving to [place] next month. She has been constantly worry and anxious that something will happen to her daughters while they are away from her. She thinks that there may be an explosion while her daughter is in school. She does not have interest in doing things she enjoys She denies SI/HI, AH, or VH She quit smoking cigarette last Tuesday She notes that she rides a stationary bike and walks on her home treadmill of 1 hour daily. She also walks her dog for 15 minutes daily. She has been exercising since the beginning of the month PENDING S[facility] TO [facility] Medical History Nicotine dependence, cigarettes, uncomplicated Anemia Hyperlipidemia Postmenopausal Surgical History History of umbilical hernia repair Family History Father Prostate cancer Mother Cardiac arrest Sister Breast cancer Social History Household Members: Family Both parents involved: No Caregiver staying overnight: No Housing: House Are you a primary care transition coordinator to a significant other at home: No Do you presently have visiting nurse or other home services: No 75 years or older and lives alone: No Alcohol intake: former Patient Tobacco Use Status: Former Tobacco user Tobacco use type: Cigarette Cigarettes Per Day: 4 Years Smoked: onset 20yo, 1ppd x 47yrs, now 1/2ppd, 45pyh, Restarted 03/20/23 e-Cigarette/Vaping Use: Never Used service: No Current occupational status: retired Cognitive needs: No Hearing needs: No Vision needs: No Female Reproductive History Menstrual Age of Menarche: 17 Questionnaire PHQ-9 Over the last 2 weeks, how often have you been bothered by any of the following problems? 1. Little interest or pleasure in doing things: nearly every day 2. Feeling down, depressed, or hopeless: nearly every day 3. Trouble falling or staying asleep, or sleeping too much: several days 4. Feeling tired or having little energy: nearly every day 5. Poor appetite or overeating: not at all 6. Feeling bad about yourself - or that you are a failure or have let yourself or your family down: nearly every day 7. Trouble concentrating on things, such as reading the newspaper or watching television: nearly every day 8. Moving or speaking so slowly that other people could have noticed. Or the opposite - being so fidgety or restless that you have been moving around a lot more than usual: several days 9. Thoughts that you would be better off or of hurting yourself in some way: not at all Total score: 17 Depression Screening Interpretation: Positive Depression Screening Follow-up: Existing condition and New Medication prescribed Depression Screening Done: Yes 26923 - PHQ-9 Billing: Yes Source: Developed by Drs. Hans Singh, Nancy Deshpande, Bhavesh Farah and colleagues, with an educational giancarlo from [employer]. KEITH-7 AMB Questionnaire KEITH-7 Date KEITH - 7 assessed: 06/03/23 Feeling nervous, anxious, or on edge: 1 = Several days Not being able to stop or control worryin = Nearly every day Worrying too much about different things: 3 = Nearly every day Trouble relaxin = Several days Being so restless that it is hard to sit still: 3 = Nearly every day Becoming easily annoyed or irritable: 3 = Nearly every day Feeling afraid as if something awful might happen: 3 = Nearly every day Total KEITH-7 score (0-4 normal; 5-9 mild; 10-14 moderate; 15-21 severe): 17 Source: Developed by Drs. Hans Singh, Nancy Deshpande, Bhavesh Farah and colleagues, with an educational giancarlo from [employer]. KEITH-7 Assessment Billing KEITH-7 Assessment Tool: KEITH-7 Assessment 44310 Review of Systems Const Details: Const Denies chills, Denies fatigue, Denies fever(s), Denies headache(s) and Denies weakness ENT Denies dizziness and Denies headache(s) Card Denies chest pain, Denies lightheadedness, Denies dyspnea and Denies other (Palpitations) Resp Denies cough, Denies dyspnea, Denies wheezing and Denies other ( shortness of breath) GI Denies abdominal pain, Denies melena, Denies hematochezia, Denies change in bowel habits, Denies dyspepsia and Denies nausea Denies hematuria and Denies dysuria Musc Denies abnormal gait, Denies myalgias, Denies arthralgias, Denies numbness and Denies tingling Skin/Breast Denies rash, Denies unusual bruising and Denies wounds Neuro Denies abnormal gait, Denies dizziness, Denies headache(s), Denies memory loss, Denies numbness, Denies Sensory deficit (Neuro), Denies tingling and Denies weakness Psych Reports anxiety, Reports depression, Denies memory loss Endo Denies cold intolerance, Denies fatigue, Denies heat intolerance, Denies polydipsia and Denies polyuria Aller/Immun Denies wheezing Physical exam (Primary Care) Vital Signs: Last Vital Signs Temp 97.2 F 06/03/23 13:23 Pulse 78 06/03/23 13:23 Resp 13 06/03/23 13:23 BP 130/70 06/03/23 13:23 Pulse Ox 95 06/03/23 13:23 Oxygen Delivery Method Room Air 06/03/23 13:23 BMI result Body Mass Index 29.6 Tobacco/Smoking Status: Tobacco use Status Tobacco use date assessed 04/26/23 06/03/23 13:28 Patient Tobacco Use Status Former Tobacco user 06/03/23 13:28 Tobacco use type Cigarette 06/03/23 13:28 e-Cigarette/Vaping Use Never Used 06/03/23 13:28 Depression Screening Interpretation: Positive Depression Screening Follow-up: Existing condition and New Medication prescribed Const Other: General: no acute distress and well developed Nutritional Appearance: well nourished Orientation/consciousness: patient oriented x3 HENMT Head: Yes normocephalic and Yes atraumatic Eyes General: appearance normal, both eyes and all related structures Pupils: Equal, round and reactive pupils present EOM: EOMs intact bilaterally Resp Effort & Inspection: normal respiratory effort Auscultation: clear to auscultation bilaterally Cardio Rate: regular rate Rhythm: regular rhythm Heart sounds: S1 normal heart sound present, S2 normal heart sound present, no gallops, no murmurs and no rubs GI Palpation (GI): No Abdominal aortic bruit present, Soft to palpation, nontender, No hepatosplenomegaly present and No Rebound tenderness present Auscultation: normal bowel sounds General: Yes no CVA tenderness Back/Spine/Pelvis Back: no CVA tenderness Cervical Spine: cervical ROM normal and No Cervical spine tenderness Thoracic/Lumbar Spine: thoraco-lumbar ROM normal, No pain with thoraco-lumbar ROM, No thoracic spinal tenderness and No lumbar spinal tenderness Extrem General: Yes normal to inspection, No edema and No calf tenderness Skin General: warm and dry. Normal skin color. Normal skin turgor Lesions: no lesions Rashes: no rashes Trauma: no lacerations or abrasions Wounds: no wounds Nails: normal Neuro General: patient oriented x3, gait normal and no focal neuro deficit Cranial nerves: Yes Equal, round and reactive pupils present Cognition (Neuro): normal cognition Gait exam (Neuro): Normal gait present Sensory Exam: No Sensory deficit (Neuro) Psych Appearance: grossly normal Affect: normal affect Attitude: cooperative Thought process: Normal thought process present Assessment and Plan Assessment & Plan (1) Conjunctivitis, right eye: Code(s): H10.9 - Unspecified conjunctivitis Plan: Reports foul smelling drainage from the right eye since the beginning of this month Conjunctiva of the right eye with mild erythema, no drainage or overt trauma/injury noted Erythromycin ointment ordered. Use as prescribed Warm compresses encouraged Follow-up with worsening or new symptoms Verbalized understanding and agreed with the plan (2) Cough: Code(s): R05.9 - Cough, unspecified Plan: Nonproductive cough for the past two days She had the flu on 05/10/2024 Likely viral illness though possibly allergies. No exam evidence of bacterial infection Viral illness There is no antibiotic medication for viruses.? They must run their course.? Most average 5-7 days but 7-10 days is not uncommon and up to 14 days is still possible.? A cough is often the last symptom to resolve and this can last for weeks in some cases. Rest Hydrate well -? Drink plenty of fluids.? Especially water. Tylenol or ibuprofen for muscle aches, headache, fever/discomfort Cannot rule out COVID-19/RSV/Flu infection Nasal swab acquired and will be sent to the lab Return for new or worsening symptoms Verbalized understanding and agreed with treatment plan. (3) Anxiety and depression: Code(s): F41.9 - Anxiety disorder, unspecified; F32.A - Depression, unspecified Plan: Reports worry, anxiety, and loss of interest in doing things she enjoys x 3 weeks She is worried and anxious that something bad will happen to her daughters PHQ-9 and KEITH-7 scores revealed moderately severe depression and severe anxiety respectively Lexapro ordered. Take as prescribed She met with the community navigator who would refer her to a therapist Healthy diet and routine exercise encouraged Follow-up in 2 weeks or return sooner with worsening or new symptoms Verbalized understanding and agreed with treatment plan Orders: Orders SARS-CoV2/FLU/RSV Today R05.9 - Cough, unspecified Medications: New erythromycin 0.5 inches ophthalmic (eye) TID 7 days 3.5 grams 0RF escitalopram oxalate 10 mg PO DAILY 30 days 30 tabs 3RF Coding Level of Care Code Est Pt Level 4 (96016) Diagnoses Conjunctivitis, right eye H10.9 Cough R05.9 Anxiety and depression F41.9; F32.A Additional Codes KEITH-7 Assessment Billing - KEITH-7 Assessment Tool: KEITH-7 Assessment 27251 ([id number])
== END 2023-06-03 14:10 | disposition home or self-care (01) ==
PROVIDERS: PCP Nurse Practitioner Family; Visit Provider Nurse Practitioner Family
DX: H10.9 Unspecified conjunctivitis (principal); R05.9 Cough, unspecified; F41.9 Anxiety disorder, unspecified; F32.A Depression, unspecified
CPT/HCPCS: 96127; 99214

== ENCOUNTER 2023-06-03 14:32 | Outpatient (REF) | payer MEDICARE, SELFPAY ==
[2023-06-03 20:19] LABS: Influenza A PCR NEGATIVE (Negative); Influenza B PCR NEGATIVE (Negative); Resp Syncy Virus RNA Qual PCR NEGATIVE (Negative); SARS COV2 PCR INHOUSE NEGATIVE (Negative)
== END 2023-06-03 14:33 | disposition home or self-care (01) ==
LOC: HO.LAB 14:32
PROVIDERS: Visit Provider Nurse Practitioner Family
DX: Z11.52 Encounter for screening for COVID-19 (principal); Z20.822 Contact with and (suspected) exposure to COVID-19; R05.9 Cough, unspecified
CPT/HCPCS: 0241U

== ENCOUNTER 2023-06-20 14:36 | Outpatient (AMB) | payer MEDICARE, SELFPAY ==
--- NOTE | 2023-06-20 14:50 | A.OFFPC_ITS ---
Vital Signs 06/20/23 14:51 Height 5 ft 2 in Weight 161 lb 4 oz BMI 29.5 BP 144/70 H Blood Pressure Location Rt brachial Position Sitting Respiration 13 Pulse 79 Pulse Source Pulse Oximeter Temp 97.7 F Temp Source Temporal Artery Scan Pulse Oximetry (%) 99 Oxygen Delivery Method Room Air Intake Visit Reasons: anxiety/depression Assault Boat Coxswain Required: No Accompanied by: Self / Same As Patient Allergies Penicillins Allergy (Mild, Verified 06/20/23 15:04) Rash Medication List - Last Reconciled 06/20/23 by Susan Maria CNP amlodipine 5 mg PO DAILY 30 days atorvastatin 20 mg PO BEDTIME 30 days cholecalciferol (vitamin D3) 50 mcg PO DAILY 90 days diclofenac sodium 0.1% drps ophthalmic (eye) erythromycin 0.5 inches ophthalmic (eye) TID 7 days escitalopram oxalate 10 mg PO DAILY 30 days naproxen 500 mg PO BID PRN 30 days Tobacco use date assessed: 06/20/23 Fall risk assessment: No Falls in past year Last assessed Fall Risk: 06/20/23 Dental Screening Dental Screen Date: 06/20/23 Did you have a dental visit in the last 12 months?: Yes Did you have a dental problem in the last 6 months where you did not have access to dental care?: No Was dental information given to patient?: Patient has dentist HPI HPI Comments History of Present Illness Details 68-year-old female presents for anxiety and depression follow-up She was started on escitalopram about 2 weeks ago. She admits to taking the medication as prescribed with controlled symptoms and no adverse reactions. She notes that she is less anxious and depressed She notes that the drainage from her right eye improved. She reports a film that covers her right eye at night, making her right vision blurry. No eye pain or headache. She saw an senior support engineer last March and was given a new prescription glasses. She has never been seen by an ingot stripper She denies acute symptoms at this time She started smoking in the middle of May and has been smoking 5-6 cigarettes daily. She plans on quitting again [facility], [facility] Medical History Nicotine dependence, cigarettes, uncomplicated Anemia Hyperlipidemia Postmenopausal Surgical History History of umbilical hernia repair Family History Father Prostate cancer Mother Cardiac arrest Sister Breast cancer Social History Household Members: Family Both parents involved: No Caregiver staying overnight: No Housing: House Are you a primary toddler caregiver to a significant other at home: No Do you presently have visiting nurse or other home services: No 75 years or older and lives alone: No Alcohol intake: former Patient Tobacco Use Status: Current everyday Tobacco user Tobacco use type: Cigarette Cigarette Packs Per Day: 0.20 Cigarettes Per Day: 5 Years Smoked: onset 20yo, 1ppd x 47yrs, now 1/2ppd, 45pyh, Restarted 03/20/23 e-Cigarette/Vaping Use: Never Used service: No Current occupational status: retired Cognitive needs: No Hearing needs: No Vision needs: Yes Female Reproductive History Menstrual Age of Menarche: 17 Questionnaire PHQ-9 Over the last 2 weeks, how often have you been bothered by any of the following problems? 1. Little interest or pleasure in doing things: several days 2. Feeling down, depressed, or hopeless: several days 3. Trouble falling or staying asleep, or sleeping too much: not at all 4. Feeling tired or having little energy: more than half the days 5. Poor appetite or overeating: not at all 6. Feeling bad about yourself - or that you are a failure or have let yourself or your family down: not at all 7. Trouble concentrating on things, such as reading the newspaper or watching television: not at all 8. Moving or speaking so slowly that other people could have noticed. Or the opposite - being so fidgety or restless that you have been moving around a lot more than usual: not at all 9. Thoughts that you would be better off or of hurting yourself in some way: not at all Total score: 4 Depression Screening Interpretation: Negative Depression Screening Done: Yes 44408 - PHQ-9 Billing: Yes Source: Developed by Drs. Hans Singh, Nancy Deshpande, Bhavesh Farah and colleagues, with an educational giancarlo from [employer]. KEITH-7 AMB Questionnaire KEITH-7 Date KEITH - 7 assessed: 06/20/23 Feeling nervous, anxious, or on edge: 1 = Several days Not being able to stop or control worryin = Several days Worrying too much about different things: 1 = Several days Trouble relaxin = Nearly every day Being so restless that it is hard to sit still: 1 = Several days Becoming easily annoyed or irritable: 1 = Several days Feeling afraid as if something awful might happen: 0 = Not at all Total KEITH-7 score (0-4 normal; 5-9 mild; 10-14 moderate; 15-21 severe): 8 Source: Developed by Drs. Hans Singh, Nancy Deshpande, Bhavesh Farah and colleagues, with an educational giancarlo from [employer]. KEITH-7 Assessment Billing KEITH-7 Assessment Tool: KEITH-7 Assessment 05795 Review of Systems Const Details: Const Denies chills, Denies fatigue, Denies fever(s), Denies headache(s) and Denies weakness ENT Denies dizziness and Denies headache(s) Card Denies chest pain, Denies lightheadedness, Denies dyspnea and Denies other (Palpitations) Resp Denies cough, Denies dyspnea, Denies wheezing and Denies other ( shortness of breath) GI Denies abdominal pain, Denies melena, Denies hematochezia, Denies change in bowel habits, Denies dyspepsia and Denies nausea Denies hematuria and Denies dysuria Musc Denies abnormal gait, Denies myalgias, Denies arthralgias, Denies numbness and Denies tingling Skin/Breast Denies rash, Denies unusual bruising and Denies wounds Neuro Denies abnormal gait, Denies dizziness, Denies headache(s), Denies memory loss, Denies numbness, Denies Sensory deficit (Neuro), Denies tingling and Denies weakness Psych Denies anxiety, Denies depression, Denies memory loss Endo Denies cold intolerance, Denies fatigue, Denies heat intolerance, Denies polydipsia and Denies polyuria Aller/Immun Denies wheezing Physical exam (Primary Care) Vital Signs: Last Vital Signs Temp 97.7 F 06/20/23 14:51 Pulse 79 06/20/23 14:51 Resp 13 06/20/23 14:51 BP 144/70 H 06/20/23 14:51 Pulse Ox 99 06/20/23 14:51 Oxygen Delivery Method Room Air 06/20/23 14:51 BMI result Body Mass Index 29.5 Tobacco/Smoking Status: Tobacco use Status Tobacco use date assessed 06/20/23 06/20/23 15:00 Patient Tobacco Use Status Current everyday Tobacco 06/20/23 15:00 Tobacco use type Cigarette 06/20/23 15:00 e-Cigarette/Vaping Use Never Used 06/20/23 15:00 PHQ-9: PHQ-9 Score PHQ-9: Total score 4 06/20/23 15:00 Depression Screening Interpretation: Negative Const Other: General: no acute distress and well developed Nutritional Appearance: well nourished Orientation/consciousness: patient oriented x3 HENMT Head: Yes normocephalic and Yes atraumatic Eyes General: appearance normal, both eyes and all related structures Pupils: Equal, round and reactive pupils present EOM: EOMs intact bilaterally Resp Effort & Inspection: normal respiratory effort Auscultation: clear to auscultation bilaterally Cardio Rate: regular rate Rhythm: regular rhythm Heart sounds: S1 normal heart sound present, S2 normal heart sound present, no gallops, no murmurs and no rubs GI Palpation (GI): No Abdominal aortic bruit present, Soft to palpation, nontender, No hepatosplenomegaly present and No Rebound tenderness present Auscultation: normal bowel sounds General: Yes no CVA tenderness Back/Spine/Pelvis Back: no CVA tenderness Cervical Spine: cervical ROM normal and No Cervical spine tenderness Thoracic/Lumbar Spine: thoraco-lumbar ROM normal, No pain with thoraco-lumbar ROM, No thoracic spinal tenderness and No lumbar spinal tenderness Extrem General: Yes normal to inspection, No edema and No calf tenderness Skin General: warm and dry. Normal skin color. Normal skin turgorl Neuro General: patient oriented x3, gait normal and no focal neuro deficit Cranial nerves: Yes Equal, round and reactive pupils present Cognition (Neuro): normal cognition Gait exam (Neuro): Normal gait present Sensory Exam: No Sensory deficit (Neuro) Psych Appearance: grossly normal Affect: normal affect Attitude: cooperative Thought process: Normal thought process present Assessment and Plan Assessment & Plan (1) Anxiety and depression: Code(s): F41.9 - Anxiety disorder, unspecified; F32.A - Depression, unspecified Plan: Improved anxiety and depression symptoms on current treatment KEITH-7 score revealed mild anxiety. PHQ-9 score is normal Continue current treatment regimen Routine exercise encouraged Follow-up in 2 weeks or return sooner with worsening or new symptoms Verbalized understanding and agreed with treatment plan. (2) Blurry vision, right eye: Code(s): H53.8 - Other visual disturbances Plan: Reports a film that covers her right eye at night, making her right vision blurry No acute symptoms No drainage, trauma, or injury Likely cataract She has never been evaluated by Ophthalmology Referred to Ophthalmology Follow-up or go to the ED with worsening or new symptoms Verbalized understanding and agreed with treatment plan Orders: Referrals Ophthalmology Referral H53.8 - Other visual disturbances Coding Level of Care Code New Pt Level 4 (68584) Diagnoses Anxiety and depression F41.9; F32.A Blurry vision, right eye H53.8 Additional Codes KEITH-7 Assessment Billing - KEITH-7 Assessment Tool: KEITH-7 Assessment 06006 ([id number])
[2023-06-20 14:51] VITALS: BP 144/70; PULSE 79; RESP 13; TEMP 36.5; O2SAT 99; BMI 29.5
== END 2023-06-20 15:21 | disposition home or self-care (01) ==
PROVIDERS: PCP Nurse Practitioner Family; Visit Provider Nurse Practitioner Family
DX: F41.9 Anxiety disorder, unspecified (principal); H53.8 Other visual disturbances; F32.A Depression, unspecified
CPT/HCPCS: 99213

== ENCOUNTER 2023-07-05 12:54 | Outpatient (AMB) | payer MEDICARE, SELFPAY ==
--- NOTE | 2023-07-05 13:08 | A.OFFPC_ITS ---
Vital Signs 07/05/23 13:09 Height 5 ft 2 in Weight 158 lb 6 oz BMI 29.0 BP 138/68 Blood Pressure Location Rt brachial Position Sitting Respiration 13 Pulse 82 Pulse Source Pulse Oximeter Temp 97.6 F Temp Source Temporal Artery Scan Pulse Oximetry (%) 99 Oxygen Delivery Method Room Air Intake Visit Reasons: anxiety, depression Applied Behavior Specialist Required: No Accompanied by: Self / Same As Patient Allergies Penicillins Allergy (Mild, Verified 07/05/23 13:30) Rash Medication List - Last Reconciled 07/05/23 by Susan Maria CNP amlodipine 5 mg PO DAILY 30 days atorvastatin 20 mg PO BEDTIME 30 days cholecalciferol (vitamin D3) 50 mcg PO DAILY 90 days diclofenac sodium 0.1% drps ophthalmic (eye) erythromycin 0.5 inches ophthalmic (eye) TID 7 days escitalopram oxalate 10 mg PO DAILY 30 days naproxen 500 mg PO BID PRN 30 days Tobacco use date assessed: 06/20/23 Fall risk assessment: No Falls in past year Last assessed Fall Risk: 07/05/23 Dental Screening Dental Screen Date: 07/05/23 Did you have a dental visit in the last 12 months?: Yes Did you have a dental problem in the last 6 months where you did not have access to dental care?: No Was dental information given to patient?: Patient has dentist HPI HPI Comments History of Present Illness Details 68-year-old female presents for anxiety and depression follow-up She was started on escitalopram about 4 weeks ago. She admits to taking the medication as prescribed with controlled symptoms and no adverse reactions. She notes that she is less anxious and depressed. She states that Lexapro really works. She states that she started psychotherapy last week She offers no complaints and denies acute symptoms at this time She has an appointment with ophthalmology next year [facility] Medical History Nicotine dependence, cigarettes, uncomplicated Anemia Hyperlipidemia Postmenopausal Surgical History History of umbilical hernia repair Family History Father Prostate cancer Mother Cardiac arrest Sister Breast cancer Social History Household Members: Family Both parents involved: No Caregiver staying overnight: No Housing: House Are you a primary ambulatory care coordinator to a significant other at home: No Do you presently have visiting nurse or other home services: No 75 years or older and lives alone: No Alcohol intake: former Patient Tobacco Use Status: Current everyday Tobacco user Tobacco use type: Cigarette Cigarette Packs Per Day: 0.5 Cigarettes Per Day: 10 Years Smoked: onset 20yo, 1ppd x 47yrs, now 1/2ppd, 45pyh, Restarted 03/20/23 e-Cigarette/Vaping Use: Never Used service: No Current occupational status: retired Cognitive needs: No Hearing needs: No Vision needs: Yes Female Reproductive History Menstrual Age of Menarche: 17 Questionnaire PHQ-9 Over the last 2 weeks, how often have you been bothered by any of the following problems? 1. Little interest or pleasure in doing things: several days 2. Feeling down, depressed, or hopeless: several days 3. Trouble falling or staying asleep, or sleeping too much: several days 4. Feeling tired or having little energy: several days 5. Poor appetite or overeating: several days 6. Feeling bad about yourself - or that you are a failure or have let yourself or your family down: several days 7. Trouble concentrating on things, such as reading the newspaper or watching television: several days 8. Moving or speaking so slowly that other people could have noticed. Or the opposite - being so fidgety or restless that you have been moving around a lot more than usual: not at all 9. Thoughts that you would be better off or of hurting yourself in some way: not at all Total score: 7 Depression Screening Interpretation: Positive Depression Screening Follow-up: Existing condition and In treatment Depression Screening Done: Yes 97214 - PHQ-9 Billing: Yes Source: Developed by Drs. Hans Singh, Nancy Deshpande, Bhavesh Farah and colleagues, with an educational giancarlo from [employer]. KEITH-7 AMB Questionnaire KEITH-7 Date KEITH - 7 assessed: 07/05/23 Feeling nervous, anxious, or on edge: 1 = Several days Not being able to stop or control worryin = Several days Worrying too much about different things: 1 = Several days Trouble relaxin = Several days Being so restless that it is hard to sit still: 1 = Several days Becoming easily annoyed or irritable: 1 = Several days Feeling afraid as if something awful might happen: 1 = Several days Total KEITH-7 score (0-4 normal; 5-9 mild; 10-14 moderate; 15-21 severe): 7 Source: Developed by Drs. Hans Singh, Nancy Deshpande, Bhavesh Farah and colleagues, with an educational giancarlo from [employer]. KEITH-7 Assessment Billing KEITH-7 Assessment Tool: KEITH-7 Assessment 26922 Review of Systems Const Details: Const Denies chills, Denies fatigue, Denies fever(s), Denies headache(s) and Denies weakness ENT Denies dizziness and Denies headache(s) Card Denies chest pain, Denies lightheadedness, Denies dyspnea and Denies other (Palpitations) Resp Denies cough, Denies dyspnea, Denies wheezing and Denies other ( shortness of breath) GI Denies abdominal pain, Denies melena, Denies hematochezia, Denies change in bowel habits, Denies dyspepsia and Denies nausea Denies hematuria and Denies dysuria Musc Denies abnormal gait, Denies myalgias, Denies arthralgias, Denies numbness and Denies tingling Skin/Breast Denies rash, Denies unusual bruising and Denies wounds Neuro Denies abnormal gait, Denies dizziness, Denies headache(s), Denies memory loss, Denies numbness, Denies Sensory deficit (Neuro), Denies tingling and Denies weakness Psych Denies anxiety, Denies depression, Denies memory loss Endo Denies cold intolerance, Denies fatigue, Denies heat intolerance, Denies polydipsia and Denies polyuria Aller/Immun Denies wheezing Physical exam (Primary Care) Vital Signs: Last Vital Signs Temp 97.6 F 07/05/23 13:09 Pulse 82 07/05/23 13:09 Resp 13 07/05/23 13:09 BP 138/68 07/05/23 13:09 Pulse Ox 99 07/05/23 13:09 Oxygen Delivery Method Room Air 07/05/23 13:09 BMI result Body Mass Index 29.0 Tobacco/Smoking Status: Tobacco use Status Tobacco use date assessed 06/20/23 07/05/23 13:20 Patient Tobacco Use Status Current everyday Tobacco 07/05/23 13:20 Tobacco use type Cigarette 07/05/23 13:20 e-Cigarette/Vaping Use Never Used 07/05/23 13:20 PHQ-9: PHQ-9 Score PHQ-9: Total score 7 07/05/23 13:20 Depression Screening Interpretation: Positive Depression Screening Follow-up: Existing condition and In treatment Const Other: General: no acute distress and well developed Nutritional Appearance: well nourished Orientation/consciousness: patient oriented x3 HENMT Head: Yes normocephalic and Yes atraumatic Eyes General: appearance normal, both eyes and all related structures Pupils: Equal, round and reactive pupils present EOM: EOMs intact bilaterally Resp Effort & Inspection: normal respiratory effort Auscultation: clear to auscultation bilaterally Cardio Rate: regular rate Rhythm: regular rhythm Heart sounds: S1 normal heart sound present, S2 normal heart sound present, no gallops, no murmurs and no rubs GI Palpation (GI): No Abdominal aortic bruit present, Soft to palpation, nontender, No hepatosplenomegaly present and No Rebound tenderness present Auscultation: normal bowel sounds General: Yes no CVA tenderness Back/Spine/Pelvis Back: no CVA tenderness Cervical Spine: cervical ROM normal and No Cervical spine tenderness Thoracic/Lumbar Spine: thoraco-lumbar ROM normal, No pain with thoraco-lumbar ROM, No thoracic spinal tenderness and No lumbar spinal tenderness Extrem General: Yes normal to inspection, No edema and No calf tenderness Skin General: warm and dry. Normal skin color. Normal skin turgor Neuro General: patient oriented x3, gait normal and no focal neuro deficit Cranial nerves: Yes Equal, round and reactive pupils present Cognition (Neuro): normal cognition Gait exam (Neuro): Normal gait present Sensory Exam: No Sensory deficit (Neuro) Psych Appearance: grossly normal Affect: normal affect Attitude: cooperative Thought process: Normal thought process present Assessment and Plan Assessment & Plan (1) Anxiety and depression: Code(s): F41.9 - Anxiety disorder, unspecified; F32.A - Depression, unspecified Plan: Significant improvement on anxiety and depression symptoms Continue with current treatment regimen Routine exercise encouraged Follow-up in 1 month or return sooner with worsening or new symptoms Verbalized understanding and agreed with treatment plan (2) Hypertension: Code(s): I10 - Essential (primary) hypertension Qualifiers: Hypertension type: primary hypertension Qualified Code(s): I10 - Essential (primary) hypertension Plan: Resting blood pressure is 138/68, slightly within goal of less than 140/90 Will increase amlodipine to 10 mg daily. Take as prescribed Low-sodium diet and routine exercise encouraged Follow-up in 1 month or return sooner with symptoms or concerns Verbalized understanding and agreed with treatment plan Medications: New amlodipine 10 mg PO DAILY 30 days 30 tabs 3RF Discontinued amlodipine Discontinued Reason: Doctor's Order 5 mg PO DAILY 30 days 30 tabs 3RF Coding Level of Care Code Est Pt Level 3 (76543) Diagnoses Anxiety and depression F41.9; F32.A Primary hypertension I10 Hypertension type: primary hypertension Additional Codes KEITH-7 Assessment Billing - KEITH-7 Assessment Tool: KEITH-7 Assessment 46477 ([id number])
[2023-07-05 13:09] VITALS: BP 138/68; PULSE 82; RESP 13; TEMP 36.4; O2SAT 99; BMI 29.0
== END 2023-07-05 13:41 | disposition home or self-care (01) ==
PROVIDERS: PCP Nurse Practitioner Family; Visit Provider Nurse Practitioner Family
DX: F41.9 Anxiety disorder, unspecified (principal); F32.A Depression, unspecified; I10 Essential (primary) hypertension
CPT/HCPCS: 99213

== ENCOUNTER 2023-09-06 15:33 | Outpatient (AMB) | payer MEDICARE, SELFPAY ==
[2023-09-06 15:40] VITALS: BP 140/74; PULSE 86; RESP 14; TEMP 36.6; O2SAT 99; BMI 29.4
--- NOTE | 2023-09-06 15:40 | A.OFFPC_ITS ---
Vital Signs 09/06/23 15:40 09/06/23 15:55 Height 5 ft 2 in Weight 161 lb BMI 29.4 BP 140/74 H 140/70 H Blood Pressure Location Rt brachial Rt brachial Position Sitting Sitting Respiration 14 Pulse 86 Pulse Source Pulse Oximeter Temp 97.9 F Temp Source Temporal Artery Scan Pulse Oximetry (%) 99 Oxygen Delivery Method Room Air Intake Visit Reasons: follow up anxiety depression Baccarat Manager Required: No Accompanied by: Self / Same As Patient Allergies Penicillins Allergy (Mild, Verified 09/06/23 15:48) Rash Medication List - Last Reconciled 09/06/23 by Susan Maria CNP amlodipine 10 mg PO DAILY 30 days atorvastatin 20 mg PO BEDTIME 30 days cholecalciferol (vitamin D3) 50 mcg PO DAILY 90 days escitalopram oxalate 10 mg PO DAILY 30 days naproxen 500 mg PO BID PRN 30 days Tobacco use date assessed: 06/20/23 Last assessed Fall Risk: 09/06/23 Dental Screening Dental Screen Date: 07/05/23 HPI HPI Comments History of Present Illness Details 68-year-old female presents for hyperten kelly, anxiety, and depression follow-up She admits to taking her medication as prescribed without adverse reactions She reports controlled anxiety and depression symptoms on current treatment regimen She continues to see her therapist biweekly She has been maintaining a healthy diet She offers no complaints and denies acute symptoms at this time [facility] Medical History Nicotine dependence, cigarettes, uncomplicated Anemia Hyperlipidemia Postmenopausal Surgical History History of umbilical hernia repair Family History Father Prostate cancer Mother Cardiac arrest Sister Breast cancer Social History Household Members: Family Both parents involved: No Caregiver staying overnight: No Housing: House Are you a primary day care home provider to a significant other at home: No Do you presently have visiting nurse or other home services: No 75 years or older and lives alone: No Alcohol intake: former Patient Tobacco Use Status: Current everyday Tobacco user Tobacco use type: Cigarette Cigarette Packs Per Day: 0.5 Cigarettes Per Day: 10 Years Smoked: onset 20yo, 1ppd x 47yrs, now 1/2ppd, 45pyh, Restarted 03/20/23 e-Cigarette/Vaping Use: Never Used service: No Current occupational status: retired Cognitive needs: No Hearing needs: No Vision needs: Yes Female Reproductive History Menstrual Age of Menarche: 17 Questionnaire PHQ-9 Over the last 2 weeks, how often have you been bothered by any of the following problems? 1. Little interest or pleasure in doing things: nearly every day 2. Feeling down, depressed, or hopeless: nearly every day 3. Trouble falling or staying asleep, or sleeping too much: not at all 4. Feeling tired or having little energy: not at all 5. Poor appetite or overeating: not at all 6. Feeling bad about yourself - or that you are a failure or have let yourself or your family down: more than half the days 7. Trouble concentrating on things, such as reading the newspaper or watching television: nearly every day 8. Moving or speaking so slowly that other people could have noticed. Or the opposite - being so fidgety or restless that you have been moving around a lot more than usual: not at all 9. Thoughts that you would be better off or of hurting yourself in some way: not at all Total score: 11 Depression Screening Interpretation: Positive Depression Screening Follow-up: Existing condition and In treatment Depression Screening Done: Yes 24546 - PHQ-9 Billing: Yes Source: Developed by Drs. Hans Singh, Nancy Deshpande, Bhavesh Farah and colleagues, with an educational giancarlo from [employer]. KEITH-7 AMB Questionnaire KEITH-7 Date KEITH - 7 assessed: 09/06/23 Feeling nervous, anxious, or on edge: 2 = More than half the days Not being able to stop or control worryin = Nearly every day Worrying too much about different things: 0 = Not at all Trouble relaxin = Nearly every day Being so restless that it is hard to sit still: 3 = Nearly every day Becoming easily annoyed or irritable: 0 = Not at all Feeling afraid as if something awful might happen: 0 = Not at all Total KEITH-7 score (0-4 normal; 5-9 mild; 10-14 moderate; 15-21 severe): 11 Source: Developed by Drs. Hans Singh, Nancy Deshpande, Bhavesh Farah and colleagues, with an educational giancarlo from [employer]. KEITH-7 Assessment Billing KEITH-7 Assessment Tool: KEITH-7 Assessment 21592 Review of Systems Const Details: Const Denies chills, Denies fatigue, Denies fever(s), Denies headache(s) and Denies weakness ENT Denies dizziness and Denies headache(s) Card Denies chest pain, Denies lightheadedness, Denies dyspnea and Denies other (Palpitations) Resp Denies cough, Denies dyspnea, Denies wheezing and Denies other ( shortness of breath) GI Denies abdominal pain, Denies melena, Denies hematochezia, Denies change in bowel habits, Denies dyspepsia and Denies nausea Denies hematuria and Denies dysuria Musc Denies abnormal gait, Denies myalgias, Denies arthralgias, Denies numbness and Denies tingling Skin/Breast Denies rash, Denies unusual bruising and Denies wounds Neuro Denies abnormal gait, Denies dizziness, Denies headache(s), Denies memory loss, Denies numbness, Denies Sensory deficit (Neuro), Denies tingling and Denies weakness Psych Denies anxiety, Denies depression, Denies memory loss Endo Denies cold intolerance, Denies fatigue, Denies heat intolerance, Denies polydipsia and Denies polyuria Aller/Immun Denies wheezing Physical exam (Primary Care) Tobacco/Smoking Status: Tobacco use Status Tobacco use date assessed 06/20/23 07/05/23 13:20 Patient Tobacco Use Status Current everyday Tobacco 07/05/23 13:20 Tobacco use type Cigarette 07/05/23 13:20 e-Cigarette/Vaping Use Never Used 07/05/23 13:20 Depression Screening Interpretation: Positive Depression Screening Follow-up: Existing condition and In treatment Const Other: General: no acute distress and well developed Nutritional Appearance: well nourished Orientation/consciousness: patient oriented x3 HENMT Head: Yes normocephalic and Yes atraumatic Eyes General: appearance normal, both eyes and all related structures Pupils: Equal, round and reactive pupils present EOM: EOMs intact bilaterally Resp Effort & Inspection: normal respiratory effort Auscultation: clear to auscultation bilaterally Cardio Rate: regular rate Rhythm: regular rhythm Heart sounds: S1 normal heart sound present, S2 normal heart sound present, no gallops, no murmurs and no rubs GI Palpation (GI): No Abdominal aortic bruit present, Soft to palpation, nontender, No hepatosplenomegaly present and No Rebound tenderness present Auscultation: normal bowel sounds General: Yes no CVA tenderness Back/Spine/Pelvis Back: no CVA tenderness Cervical Spine: cervical ROM normal and No Cervical spine tenderness Thoracic/Lumbar Spine: thoraco-lumbar ROM normal, No pain with thoraco-lumbar ROM, No thoracic spinal tenderness and No lumbar spinal tenderness Extrem General: Yes normal to inspection, No edema and No calf tenderness Skin General: warm and dry. Normal skin color. Normal skin turgor Neuro General: patient oriented x3, gait normal and no focal neuro deficit Cranial nerves: Yes Equal, round and reactive pupils present Cognition (Neuro): normal cognition Gait exam (Neuro): Normal gait present Sensory Exam: No Sensory deficit (Neuro) Psych Appearance: grossly normal Affect: normal affect Attitude: cooperative Thought process: Normal thought process present Assessment and Plan Assessment & Plan (1) Hypertension: Code(s): I10 - Essential (primary) hypertension Qualifiers: Hypertension type: primary hypertension Qualified Code(s): I10 - Essential (primary) hypertension Plan: Resting blood pressure is 140/70, slightly above goal of less than 140/90 Continue current treatment regimen Low-sodium diet encouraged Follow-up in 1 month or return sooner with symptoms or concerns Verbalized understanding and agreed with treatment plan (2) Anxiety and depression: Code(s): F41.9 - Anxiety disorder, unspecified; F32.A - Depression, unspecified Plan: Reports controlled anxiety and depression symptoms PHQ-9 and KEITH-7 scores revealed moderate depression and anxiety Continue current treatment regimen Routine exercise encouraged Follow-up in 1 month or return sooner with worsening or new symptoms Verbalized understanding and agreed with treatment plan Coding Level of Care Code Est Pt Level 4 (51939) Complex EM visit Add On G2211 Diagnoses Primary hypertension I10 Hypertension type: primary hypertension Anxiety and depression F41.9; F32.A Additional Codes KEITH-7 Assessment Billing - KEITH-7 Assessment Tool: KEITH-7 Assessment 61015 ([id number])
[2023-09-06 15:55] VITALS: BP 140/70
== END 2023-09-06 16:30 | disposition home or self-care (01) ==
PROVIDERS: PCP Nurse Practitioner Family; Visit Provider Nurse Practitioner Family
DX: I10 Essential (primary) hypertension (principal); F41.9 Anxiety disorder, unspecified; F32.A Depression, unspecified
CPT/HCPCS: 99214; G2211

== ENCOUNTER 2023-09-21 08:51 | Day surgery (SDC) | payer MEDICARE, SELFPAY ==
[2023-09-20 07:16] VITALS: BMI 27.8
--- NOTE | 2023-09-20 08:24 | P.CONAN_ITS ---
Documented by User: Kasey Alfred NP 09/20/23 08:25 HPI - Anesthesia Eval Consult details Narrative: 68yo F for Colonoscopy PMFSH Active Problems Active Problems: All Active Problems Blurry vision, right eye (Acute) Anxiety and depression (Acute) Conjunctivitis, right eye (Acute) Cough (Acute) Well woman exam (Acute) Osteopenia (Acute) Smoking 1/2 pack a day or less (Acute) Hypertension (Acute) Bilateral hand numbness (Acute) Encounter for screening colonoscopy (Acute) Nicotine dependence, cigarettes, uncomplicated (Acute) Anemia (Acute) Hyperlipidemia (Acute) Postmenopausal (Acute) Numbness of upper extremity (Acute) Neck pain on right side (Acute) Past Medical History Medical History Nicotine dependence, cigarettes, uncomplicated Anemia Hyperlipidemia Postmenopausal Family History Family History Father Prostate cancer Mother Cardiac arrest Sister Breast cancer Surgical History Surgical History History of umbilical hernia repair Social History Social History Household Members: Family Housing: House Are you a primary manager intensive care to a significant other at home: No Do you presently have visiting nurse or other home services: No Alcohol intake: former Patient Tobacco Use Status: Current everyday Tobacco user Tobacco use type: Cigarette Cigarette Packs Per Day: 0.5 Cigarettes Per Day: 10 Years Smoked: onset 20yo, 1ppd x 47yrs, now 1/2ppd, 45pyh, Restarted 03/20/23 e-Cigarette/Vaping Use: Never Used service: No Current occupational status: retired Cognitive needs: No Hearing needs: No Vision needs: Yes Meds Allergies Allergy/AdvReac Type Severity Reaction Status Date / Time Penicillins Allergy Mild Rash Verified 09/06/23 15:48 Exam Height,Weight and Vital Signs: Height 5 ft 2 in Weight 68.946 kg Assessment and Plan Assessment Anesthesia Assessment: Chart Reviewed Documented by User: Mara Randhawa MD 09/21/23 09:27 [facility] Past Medical History Medical History Nicotine dependence, cigarettes, uncomplicated Anemia Hyperlipidemia Postmenopausal Family History Family History Father Prostate cancer Mother Cardiac arrest Sister Breast cancer Surgical History Surgical History History of umbilical hernia repair History of Problems with Anesthesia: No Social History Social History Household Members: Family Housing: House Are you a primary manager intensive care to a significant other at home: No Do you presently have visiting nurse or other home services: No Alcohol intake: former Patient Tobacco Use Status: Current everyday Tobacco user Tobacco use type: Cigarette Cigarette Packs Per Day: 0.5 Cigarettes Per Day: 10 Years Smoked: onset 20yo, 1ppd x 47yrs, now 1/2ppd, 45pyh, Restarted 03/20/23 e-Cigarette/Vaping Use: Never Used service: No Current occupational status: retired Cognitive needs: No Hearing needs: No Vision needs: Yes Meds Allergies Allergy/AdvReac Type Severity Reaction Status Date / Time Penicillins Allergy Mild Rash Verified 09/06/23 15:48 Exam Airway Mallampati Class: II TM Dist: >3cm Neck ROM: Full Denture: Upper Partial: Lower Loose/Missing/Broken Teeth: Yes, Upper and Lower Heart: RRR Lungs: CTA Assessment and Plan Assessment Anesthesia Assessment: Anesthesia Plan Discussed Final Anesthetic Review History of Problems with Anesthesia: No NPO: Yes ASA Class: II Final Preanesthetic Review: Meds/Allgs Chart Reviewed, Consent Obtained/Reviewed and Anes Risks/Benef Reviewed Patient Risk: Low Procedure Risk: Low Anesthetic Plan Anesthetic Plan: MAC: Disposition: Standard PACU
[2023-09-21 09:04] VITALS: BP 145/74; PULSE 18; RESP 70; TEMP 36.9; O2SAT 97; BMI 27.8
[2023-09-21] MEDS: Lactated Ringers 1,000 ML 100 ML IVCONT (09:22)
--- NOTE | 2023-09-21 09:36 | MHC.SHP ---
Pre-Procedural Eval Section A - 24 Hr Update-Section A only Date of Service: 09/21/23 Section B - Complete if H&P > 30 days Chief Complaint: Encounter for screening for malignant neoplasm of Relevant Family History (Specify if Yes): No Relevant Social History: Tobacco Use Present Medications: see Short Stay Collaborative assessment Medical History: Significant History (Nicotine dependence, cigarettes, uncomplicated Anemia Hyperlipidemia Postmenopausal) History of Previous Operations: Relevant previous surgery/procedure and date(s) (History of umbilical hernia repair) Allergies: Allergies Allergy/AdvReac Type Severity Reaction Status Date / Time Penicillins Allergy Mild Rash Verified 09/06/23 15:48 Review of Systems Sugical H&P ROS: Negative: Constitution, Cardiovascular, Respiratory, Neurological, Psychiatric, Hem-Onc, Allergic/Immunologic, Gastrointestinal, Genitourinary, Musculoskeletal, Integumentary, Endocrine and Eyes/Ears/Nose/Throat Exam Surgical H&P Exam: Normal: HEENT, Normal: Heart, Normal: Lungs, Normal: Extremities, Normal: Abdomen, Normal: Skin and Normal: Neurological Plan Diagnosis/Plan: Unchanged I have reviewed the history and physical and performed a pertinent physical examination on my patient. No changes have occurred unless specified. Time Spent With Patient Time: Total time managing care of this patient today ____ minutes.
--- NOTE | 2023-09-21 09:37 | MHC.SHP ---
Pre-Procedural Eval Section A - 24 Hr Update-Section A only Date of Service: 09/21/23 Section B - Complete if H&P > 30 days Chief Complaint: Encounter for screening for malignant neoplasm of Relevant Social History: None Present Medications: see Short Stay Collaborative assessment Allergies: Allergies Allergy/AdvReac Type Severity Reaction Status Date / Time Penicillins Allergy Mild Rash Verified 09/06/23 15:48 Plan I have reviewed the history and physical and performed a pertinent physical examination on my patient. No changes have occurred unless specified. Time Spent With Patient Time: Total time managing care of this patient today ____ minutes.
--- NOTE | 2023-09-21 09:37 | HO.OPN-COLON ---
Colonoscopy Operative Note Operative Note Date of Service: 09/21/23 Narrative: Operative Information Procedure Description: Colonoscopy Indication: screening Anesthesia: MAC COLONOSCOPY Instrument: Olympus variable stiffness pediatric scope 190L Colonoscopy Monitoring: Vital signs and clinical assessment, continuous EKG monitoring, Pulse oximetry, Carbon Dioxide monitoring and blood pressure monitoring were done throughout the procedure. Colon withdrawal time was [] minutes. Procedure: The patient was placed in the left lateral decubitis position and pre-procedure medications were administered. After a digital rectal examination of the ano-rectum, the video colonoscope was inserted into the rectum and advanced through the colon to the cecum/TI. The colonoscope was slowly withdrawn in a retrograde panoramic fashion and the colon mucosa was carefully examined including a retroflexed view of the rectum. Findings and interventions are described below. Procedure Difficulty: moderate, pressure applied Findings: Terminal Ileum-not intubated Cecum: few tics seen Ascending Colon: normal Transverse Colon -normal Descending Colon:normal Sigmoid Colon: mild diverticulosis Rectum: Retroflexion with small internal hemorrhoids seen, grade I Anorectum - normal Intervention: none Colon preparation: [place] Bowel Preparation Scale Right colon; 2 Transverse colon: 2 Left colon; 2 (0 = Unprepared colon segment with mucosa not seen due to solid stool that cannot be cleared. 1 = Portion of mucosa of the colon segment seen, but other areas of the colon segment not well seen due to staining, residual stool and/or opaque liquid. 2 = Minor amount of residual staining, small fragments of stool and/or opaque liquid, but mucosa of colon segment seen well. 3 = Entire mucosa of colon segment seen well with no residual staining, small fragments of stool or opaque liquid) Impression and Post Procedure Diagnosis: diverticulosis internal hemorrhoids Plan: High fiber diet leaflet Avoid straining at stool, epsom salts and sitz bath, anusol supps or cream Repeat Colonoscopy in 10 years or earlier if clinically indicated Above findings were reviewed with the patient and relevant handouts were provided if indicated.
[2023-09-21 10:10] VITALS: BP 109/55; PULSE 53; RESP 19; TEMP 36.6; O2SAT 98
[2023-09-21 10:25] VITALS: BP 114/58; PULSE 65; RESP 18; O2SAT 98
[2023-09-21 10:33] VITALS: BP 150/76; PULSE 69; RESP 18; TEMP 36.6; O2SAT 100
== END 2023-09-21 11:11 | disposition home or self-care (01) ==
PROVIDERS: PCP Nurse Practitioner Family; Visit Provider Internal Medicine Gastroenterology
PROC: 0DJD8ZZ Inspection of Lower Intestinal Tract, Via Natural or Artificial Opening Endoscopic (ICD-10-PCS; CPT 45378; principal; 2023-09-21 10:50)
DX: Z12.11 Encounter for screening for malignant neoplasm of colon (principal); K57.30 Diverticulosis of large intestine without perforation or abscess without bleeding; K64.0 First degree hemorrhoids; Z88.0 Allergy status to penicillin
CPT/HCPCS: G0121; J2704

== ENCOUNTER → 2023-09-21 08:51 | Outpatient (BNV) | payer MEDICARE, SELFPAY | PROVIDERS: PCP Nurse Practitioner Family; Visit Provider Internal Medicine Gastroenterology | DX: Z12.11 Encounter for screening for malignant neoplasm of colon (principal); K57.90 Diverticulosis of intestine, part unspecified, without perforation or abscess without bleeding; K64.0 First degree hemorrhoids | CPT/HCPCS: 45378 ==

== ENCOUNTER 2023-10-04 14:45 | Outpatient (AMB) | payer MEDICARE, SELFPAY ==
[2023-10-04 14:47] VITALS: BP 142/66; PULSE 82; RESP 13; TEMP 36.7; O2SAT 99; BMI 29.2
--- NOTE | 2023-10-04 14:47 | A.OFFPC_ITS ---
Vital Signs 10/04/23 14:47 10/04/23 15:04 Height 5 ft 2 in Weight 159 lb 8 oz BMI 29.2 BP 142/66 H 130/66 Blood Pressure Location Rt brachial Rt brachial Position Sitting Sitting Respiration 13 Pulse 82 Pulse Source Pulse Oximeter Temp 98.1 F Temp Source Temporal Artery Scan Pulse Oximetry (%) 99 Oxygen Delivery Method Room Air Intake Visit Reasons: Follow up anxiety depression Home Delivery Driver Required: No Accompanied by: Self / Same As Patient Allergies Penicillins Allergy (Mild, Verified 10/04/23 14:58) Rash Medication List - Last Reconciled 10/04/23 by Susan Maria CNP amlodipine 10 mg PO DAILY 30 days atorvastatin 20 mg PO BEDTIME 30 days cholecalciferol (vitamin D3) 50 mcg PO DAILY 90 days escitalopram oxalate 10 mg PO DAILY 30 days naproxen 500 mg PO BID PRN 30 days Tobacco use date assessed: 06/20/23 Fall risk assessment: No Falls in past year Last assessed Fall Risk: 10/04/23 Dental Screening Dental Screen Date: 07/05/23 HPI HPI Comments History of Present Illness Details 68-year-old female presents for hyperten kelly, anxiety, and depression follow-up She admits to taking her medication as prescribed without adverse reactions She reports controlled anxiety and depression symptoms on current treatment regimen She continues to see her therapist biweekly She has been maintaining a healthy diet and exercising routinely She offers no complaints and denies acute symptoms at this time [facility] Medical History Nicotine dependence, cigarettes, uncomplicated Anemia Hyperlipidemia Postmenopausal Surgical History Hx of colonoscopy History of umbilical hernia repair Family History Father Prostate cancer Mother Cardiac arrest Sister Breast cancer Social History Household Members: Family Both parents involved: No Caregiver staying overnight: No Housing: House Are you a primary healthcare economics manager to a significant other at home: No Do you presently have visiting nurse or other home services: No 75 years or older and lives alone: No Alcohol intake: former Patient Tobacco Use Status: Current everyday Tobacco user Tobacco use type: Cigarette Cigarette Packs Per Day: 0.5 Cigarettes Per Day: 10 Years Smoked: onset 20yo, 1ppd x 47yrs, now 1/2ppd, 45pyh, Restarted 03/20/23 e-Cigarette/Vaping Use: Never Used service: No Current occupational status: retired Cognitive needs: No Hearing needs: No Vision needs: Yes Female Reproductive History Menstrual Age of Menarche: 17 Questionnaire PHQ-9 Over the last 2 weeks, how often have you been bothered by any of the following problems? 1. Little interest or pleasure in doing things: several days 2. Feeling down, depressed, or hopeless: not at all 3. Trouble falling or staying asleep, or sleeping too much: not at all 4. Feeling tired or having little energy: not at all 5. Poor appetite or overeating: not at all 6. Feeling bad about yourself - or that you are a failure or have let yourself or your family down: not at all 7. Trouble concentrating on things, such as reading the newspaper or watching television: several days 8. Moving or speaking so slowly that other people could have noticed. Or the opposite - being so fidgety or restless that you have been moving around a lot more than usual: not at all 9. Thoughts that you would be better off or of hurting yourself in some way: not at all Total score: 2 Depression Screening Interpretation: Negative Depression Screening Done: Yes 01568 - PHQ-9 Billing: Yes Source: Developed by Drs. Hans Singh, Nancy Deshpande, Bhavesh Farah and colleagues, with an educational giancarlo from [employer]. KEITH-7 AMB Questionnaire KEITH-7 Date KEITH - 7 assessed: 10/04/23 Feeling nervous, anxious, or on edge: 0 = Not at all Not being able to stop or control worryin = Not at all Worrying too much about different things: 0 = Not at all Trouble relaxin = Not at all Being so restless that it is hard to sit still: 2 = More than half the days Becoming easily annoyed or irritable: 0 = Not at all Feeling afraid as if something awful might happen: 0 = Not at all Total KEITH-7 score (0-4 normal; 5-9 mild; 10-14 moderate; 15-21 severe): 2 Source: Developed by Drs. Hans Singh, Nancy Deshpande, Bhavesh Farah and colleagues, with an educational giancarlo from [employer]. KEITH-7 Assessment Billing KEITH-7 Assessment Tool: KEITH-7 Assessment 63913 Review of Systems Const Details: Const Denies chills, Denies fatigue, Denies fever(s), Denies headache(s) and Denies weakness ENT Denies dizziness and Denies headache(s) Card Denies chest pain, Denies lightheadedness, Denies dyspnea and Denies other (Palpitations) Resp Denies cough, Denies dyspnea, Denies wheezing and Denies other ( shortness of breath) GI Denies abdominal pain, Denies melena, Denies hematochezia, Denies change in bowel habits, Denies dyspepsia and Denies nausea Denies hematuria and Denies dysuria Musc Denies abnormal gait, Denies myalgias, Denies arthralgias, Denies numbness and Denies tingling Skin/Breast Denies rash, Denies unusual bruising and Denies wounds Neuro Denies abnormal gait, Denies dizziness, Denies headache(s), Denies memory loss, Denies numbness, Denies Sensory deficit (Neuro), Denies tingling and Denies weakness Psych Denies anxiety, Denies depression, Denies memory loss Endo Denies cold intolerance, Denies fatigue, Denies heat intolerance, Denies polydipsia and Denies polyuria Aller/Immun Denies wheezing Physical exam (Primary Care) Vital Signs: Last Vital Signs Temp 98.1 F 10/04/23 14:47 Pulse 82 10/04/23 14:47 Resp 13 10/04/23 14:47 BP 142/66 H 10/04/23 14:47 Pulse Ox 99 10/04/23 14:47 Oxygen Delivery Method Room Air 10/04/23 14:47 BMI result Body Mass Index 29.2 Tobacco/Smoking Status: Tobacco use Status Tobacco use date assessed 06/20/23 10/04/23 14:56 Patient Tobacco Use Status Current everyday Tobacco 10/04/23 14:56 Tobacco use type Cigarette 10/04/23 14:56 e-Cigarette/Vaping Use Never Used 10/04/23 14:56 PHQ-9: PHQ-9 Score PHQ-9: Total score 2 10/04/23 14:56 Depression Screening Interpretation: Negative Const Other: General: no acute distress and well developed Nutritional Appearance: well nourished Orientation/consciousness: patient oriented x3 HENMT Head: Yes normocephalic and Yes atraumatic Eyes General: appearance normal, both eyes and all related structures Pupils: Equal, round and reactive pupils present EOM: EOMs intact bilaterally Resp Effort & Inspection: normal respiratory effort Auscultation: clear to auscultation bilaterally Cardio Rate: regular rate Rhythm: regular rhythm Heart sounds: S1 normal heart sound present, S2 normal heart sound present, no gallops, no murmurs and no rubs GI Palpation (GI): No Abdominal aortic bruit present, Soft to palpation, nontender, No hepatosplenomegaly present and No Rebound tenderness present Auscultation: normal bowel sounds General: Yes no CVA tenderness Back/Spine/Pelvis Back: no CVA tenderness Cervical Spine: cervical ROM normal and No Cervical spine tenderness Thoracic/Lumbar Spine: thoraco-lumbar ROM normal, No pain with thoraco-lumbar ROM, No thoracic spinal tenderness and No lumbar spinal tenderness Extrem General: Yes normal to inspection, No edema and No calf tenderness Skin General: warm and dry. Normal skin color. Normal skin turgor Neuro General: patient oriented x3, gait normal and no focal neuro deficit Cranial nerves: Yes Equal, round and reactive pupils present Cognition (Neuro): normal cognition Gait exam (Neuro): Normal gait present Sensory Exam: No Sensory deficit (Neuro) Psych Appearance: grossly normal Affect: normal affect Attitude: cooperative Thought process: Normal thought process present Assessment and Plan Assessment & Plan (1) Hypertension: Code(s): I10 - Essential (primary) hypertension Qualifiers: Hypertension type: primary hypertension Qualified Code(s): I10 - Essential (primary) hypertension Plan: Resting blood pressure is 130/66, within goal of less than 140/90 Continue current treatment regimen Low-sodium diet and routine exercise encouraged Advised to get a standing lipid panel blood work done at her earliest convenience. Will review results and make changes as needed Follow-up in 3 months or return sooner with symptoms or concerns Verbalized understanding and agreed with treatment plan (2) Anxiety and depression: Code(s): F41.9 - Anxiety disorder, unspecified; F32.A - Depression, unspecified Plan: Reports improved anxiety and depression symptoms PHQ-9 and KEITH-7 scores are normal Continue to take escitalopram as prescribed Routine exercise encouraged Follow-up in 3 months or return sooner with symptoms or concerns Verbalized understanding and agreed with treatment plan Coding Level of Care Code Est Pt Level 4 (97616) Complex EM visit Add On G2211 Diagnoses Primary hypertension I10 Hypertension type: primary hypertension Anxiety and depression F41.9; F32.A Additional Codes KEITH-7 Assessment Billing - KEITH-7 Assessment Tool: KEITH-7 Assessment [id number] ([id number])
[2023-10-04 15:04] VITALS: BP 130/66
== END 2023-10-04 15:12 | disposition home or self-care (01) ==
PROVIDERS: PCP Nurse Practitioner Family; Visit Provider Nurse Practitioner Family
DX: I10 Essential (primary) hypertension (principal); F41.9 Anxiety disorder, unspecified; F32.A Depression, unspecified
CPT/HCPCS: 99214; G2211

== ENCOUNTER 2024-01-05 13:02 | Outpatient (REF) | payer MEDICARE, SELFPAY ==
[2024-01-05 14:48] LABS: Cholesterol 167 mg/dL (<200); HDL Cholesterol 44 mg/dL (>40); LDL Cholesterol Calculated 90 mg/dL (<100); Triglycerides 165 mg/dL (<150)
== END 2024-01-05 13:03 | disposition home or self-care (01) ==
LOC: HO.WFDLDS 13:02
PROVIDERS: Visit Provider Nurse Practitioner Family
DX: E78.5 Hyperlipidemia, unspecified (principal)
CPT/HCPCS: 36415; 80061

== ENCOUNTER 2024-01-06 12:58 | Outpatient (AMB) | payer MEDICARE, SELFPAY ==
--- NOTE | 2024-01-06 13:00 | A.OFFPC_ITS ---
Vital Signs 01/06/24 13:08 Height 5 ft 2 in Weight 157 lb 6 oz BMI 28.8 BP 132/64 Blood Pressure Location Lt brachial Position Sitting Respiration 16 Pulse 74 Pulse Source Pulse Oximeter Temp 98.0 F Temp Source Oral Pulse Oximetry (%) 100 Oxygen Delivery Method Room Air Intake Visit Reasons: Follow up anxiety depression Intake Note: patient here to follow up on anxiety and depression. 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 Is last menstrual period known: No Post menopausal: No Patient : No Allergies Penicillins Allergy (Mild, Verified 01/06/24 13:10) Rash Tobacco use date assessed: 01/06/24 Fall risk assessment: No Falls in past year Last assessed Fall Risk: 01/06/24 Dental Screening Dental Screen Date: 01/06/24 Did you have a dental visit in the last 12 months?: Yes Did you have a dental problem in the last 6 months where you did not have access to dental care?: No Was dental information given to patient?: Patient has dentist HPI HPI Comments History of Present Illness Details 68-year-old female presents for hyperten kelly, anxiety, and depression follow-up She admits to taking her medications as prescribed without adverse reactions She admits to making healthy lifestyle changes She notes controlled anxiety and depressive symptoms She states that she was seeing a therapist biweekly at [facility] until early October. Her therapist went to a different practice. She is awaiting for the office to connect her to a new therapist She offers no complaints and denies acute symptoms at this time [facility] Medical History Nicotine dependence, cigarettes, uncomplicated Anemia Hyperlipidemia Postmenopausal Surgical History Hx of colonoscopy History of umbilical hernia repair Family History (Updated 01/06/24 @ 13:12 by Meg Tenorio) Father Prostate cancer Mother Cardiac arrest Sister Breast cancer Social History Household Members: Family Both parents involved: No Caregiver staying overnight: No Housing: House Are you a primary healthcare account manager to a significant other at home: No Do you presently have visiting nurse or other home services: No 75 years or older and lives alone: No Alcohol intake: former Patient Tobacco Use Status: Current everyday Tobacco user Tobacco use type: Cigarette Cigarette Packs Per Day: 0.5 Cigarettes Per Day: 10 Years Smoked: onset 20yo, 1ppd x 47yrs, now 1/2ppd, 45pyh, Restarted 03/20/23 e-Cigarette/Vaping Use: Never Used service: No Current occupational status: retired Current occupational exposures/hazards: No Cognitive needs: No Hearing needs: No Vision needs: Yes Female Reproductive History Menstrual Age of Menarche: 17 Questionnaire PHQ-9 Over the last 2 weeks, how often have you been bothered by any of the following problems? 1. Little interest or pleasure in doing things: several days 2. Feeling down, depressed, or hopeless: several days 3. Trouble falling or staying asleep, or sleeping too much: several days 4. Feeling tired or having little energy: several days 5. Poor appetite or overeating: several days 6. Feeling bad about yourself - or that you are a failure or have let yourself or your family down: several days 7. Trouble concentrating on things, such as reading the newspaper or watching television: several days 8. Moving or speaking so slowly that other people could have noticed. Or the opposite - being so fidgety or restless that you have been moving around a lot more than usual: more than half the days 9. Thoughts that you would be better off or of hurting yourself in some way: not at all Total score: 9 Depression Screening Interpretation: Positive Depression Screening Follow-up: Existing condition and In treatment Depression Screening Done: Yes 78018 - PHQ-9 Billing: Yes Source: Developed by Drs. Hans Singh, Nancy Deshpande, Bhavesh Farah and colleagues, with an educational giancarlo from [employer]. AUDIT C Alcohol Use Questionnaire (AUDIT-C) 1. How often do you have a drink containing alcohol?: Never Total Score: 0 Score Reviewed/Action Taken: Yes KEITH-7 AMB Questionnaire KEITH-7 Date KEITH - 7 assessed: 01/06/24 Feeling nervous, anxious, or on edge: 1 = Several days Not being able to stop or control worryin = Several days Worrying too much about different things: 1 = Several days Trouble relaxin = Several days Being so restless that it is hard to sit still: 1 = Several days Becoming easily annoyed or irritable: 1 = Several days Feeling afraid as if something awful might happen: 1 = Several days Total KEITH-7 score (0-4 normal; 5-9 mild; 10-14 moderate; 15-21 severe): 7 Source: Developed by Drs. Hans Singh, Nancy Deshpande, Bhavesh Farah and colleagues, with an educational giancarlo from [employer]. KEITH-7 Assessment Billing KEITH-7 Assessment Tool: KEITH-7 Assessment 20731 Physical exam (Primary Care) Vital Signs: Last Vital Signs Temp 98.0 F 01/06/24 13:08 Pulse 74 01/06/24 13:08 Resp 16 01/06/24 13:08 BP 132/64 01/06/24 13:08 Pulse Ox 100 01/06/24 13:08 Oxygen Delivery Method Room Air 01/06/24 13:08 BMI result Body Mass Index 28.8 Tobacco/Smoking Status: Tobacco use Status Tobacco use date assessed 01/06/24 01/06/24 13:05 Patient Tobacco Use Status Current everyday Tobacco 01/06/24 13:05 Tobacco use type Cigarette 01/06/24 13:05 e-Cigarette/Vaping Use Never Used 01/06/24 13:05 PHQ-9: PHQ-9 Score PHQ-9: Total score 9 01/06/24 13:08 Depression Screening Interpretation: Positive Depression Screening Follow-up: Existing condition and In treatment Assessment and Plan Assessment & Plan (1) Hypertension: Code(s): I10 - Essential (primary) hypertension Qualifiers: Hypertension type: primary hypertension Qualified Code(s): I10 - Essential (primary) hypertension Plan: Blood pressure today is 132/64, within goal of less than 140/80 Continue current treatment regimen Low-sodium diet encouraged Follow-up in 3 months or sooner with symptoms or concerns Verbalized understanding and agreed with the treatment plan (2) Anxiety and depression: Code(s): F41.9 - Anxiety disorder, unspecified; F32.A - Depression, unspecified Plan: Controlled anxiety and depressive symptoms on current treatment regimen PHQ-9 and KEITH-7 scores revealed mild depression and anxiety Continue current treatment regimen Routine exercise encouraged Her therapist moved to a different practice and therefore she has not been followed by a therapist for almost 2 months. She is waiting to be connected to a new therapist. Message sent to the [facility] to try to expedite this Follow-up in 3 months or sooner with symptoms or concerns Verbalized understanding and agreed with the treatment plan (3) Hyperlipidemia: Code(s): E78.5 - Hyperlipidemia, unspecified Plan: Recent lipid panel level was unremarkable except for elevated triglycerides, 165 (improved from 212) Continue to take atorvastatin 20 mg every night Advised to limit foods high in saturated fat and avoid foods high in trans fat Routine exercise encouraged Advised to fast for 10-12 hours, may drink water only, and get lipid panel blood work done a few days before her next visit Follow-up in 3 months Verbalized understanding and agreed with the treatment Orders: Orders Lipid Panel 3 Months E78.5 - Hyperlipidemia, unspecified Coding Level of Care Code Est Pt Level 4 (97374) Diagnoses Primary hypertension I10 Hypertension type: primary hypertension Anxiety and depression F41.9; F32.A Hyperlipidemia E78.5 Additional Codes KEITH-7 Assessment Billing - KEITH-7 Assessment Tool: KEITH-7 Assessment [id number] ([id number])
[2024-01-06 13:08] VITALS: BP 132/64; PULSE 74; RESP 16; TEMP 36.7; O2SAT 100; BMI 28.8
== END 2024-01-06 13:44 | disposition home or self-care (01) ==
PROVIDERS: PCP Nurse Practitioner Family; Visit Provider Nurse Practitioner Family
DX: I10 Essential (primary) hypertension (principal); F41.9 Anxiety disorder, unspecified; F32.A Depression, unspecified; E78.5 Hyperlipidemia, unspecified
CPT/HCPCS: 99214

== ENCOUNTER 2024-03-13 14:45 | Outpatient (REF) | payer MEDICARE, SELFPAY | END 2024-03-13 14:46 | disposition home or self-care (01) | LOC: HO.CT 14:45 | PROVIDERS: PCP Nurse Practitioner Family; Visit Provider Physician Assistant Medical | DX: Z12.2 Encounter for screening for malignant neoplasm of respiratory organs (principal); F17.210 Nicotine dependence, cigarettes, uncomplicated | CPT/HCPCS: 71271 ==

== ENCOUNTER 2024-04-16 15:28 | Outpatient (AMB) | payer MEDICARE, SELFPAY ==
--- NOTE | 2024-04-16 15:31 | A.OFFPC_ITS ---
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 Is last menstrual period known: No Post menopausal: No Patient : No Allergies Penicillins Allergy (Mild, Verified 04/16/24 15:52) Rash Medication List - Last Reconciled 04/16/24 by Susan Maria CNP amlodipine 10 mg PO DAILY 90 days atorvastatin 20 mg PO BEDTIME cholecalciferol (vitamin D3) 50 mcg PO DAILY 90 days escitalopram oxalate 10 mg PO DAILY 30 days hydroxyzine HCl 50 mg (2 x 25 mg) PO BID PRN naproxen 500 mg PO BID PRN 30 days Tobacco use date assessed: 04/16/24 Fall risk assessment: No Falls in past year Last assessed Fall Risk: 04/16/24 Dental Screening Dental Screen Date: 04/16/24 Did you have a dental visit in the last 12 months?: Yes Did you have a dental problem in the last 6 months where you did not have access to dental care?: No Was dental information given to patient?: Patient has dentist HPI HPI Comments History of Present Illness Details The patient is a 69-year-old female presenting with hypertension, anxiety, and depression. She has a history of high blood pressure and notes her readings remain slightly elevated. She is currently taking amlodipine 10 mg daily with good adherence to her medication regimen. Her blood pressure reading during the visit was 146/80 mm Hg. The patient does not consume much salt and has no adverse reactions to her medications. In relation to her anxiety and depression, she reports that these conditions are generally controlled but cites stressors, particularly involving her middle daughter, which contribute to her symptom exacerbation. She takes escitalopram 10 mg daily to manage these conditions and states her symptoms are primarily under control, with adequate sleep and regular exercise resumed in March. In addition, the patient had a recent illness she believes was pneumonia. She reports not having gone to the hospital but instead received antibiotics through an ER physician, which has alleviated her symptoms. FOR[facility] Medical History (Updated 02/06/24 @ 09:12 by Mandy Brown PA-C) Osteopenia Nicotine dependence, cigarettes, uncomplicated Anemia Hyperlipidemia Postmenopausal Surgical History (Updated 02/28/24 @ 09:13 by Jacque Soto) Hx of colonoscopy History of umbilical hernia repair Family History (Updated 01/06/24 @ 13:12 by Meg Tenorio MA) Father Prostate cancer Mother Cardiac arrest Sister Breast cancer Social History Household Members: Family Both parents involved: No Caregiver staying overnight: No Housing: House Are you a primary critical care nurse practitioner to a significant other at home: No Do you presently have visiting nurse or other home services: No 75 years or older and lives alone: No Alcohol intake: former Patient Tobacco Use Status: Current everyday Tobacco user Tobacco use type: Cigarette Cigarette Packs Per Day: 0.5 Cigarettes Per Day: 10 Years Smoked: onset 20yo, 1ppd x 47yrs, now 1/2ppd, 45pyh, Restarted 03/20/23 e-Cigarette/Vaping Use: Never Used service: No Current occupational status: retired Current occupational exposures/hazards: No Cognitive needs: No Hearing needs: No Vision needs: Yes Female Reproductive History Menstrual Age of Menarche: 17 Questionnaire PHQ-9 Over the last 2 weeks, how often have you been bothered by any of the following problems? 1. Little interest or pleasure in doing things: several days 2. Feeling down, depressed, or hopeless: several days 3. Trouble falling or staying asleep, or sleeping too much: several days 4. Feeling tired or having little energy: several days 5. Poor appetite or overeating: not at all 6. Feeling bad about yourself - or that you are a failure or have let yourself or your family down: not at all 7. Trouble concentrating on things, such as reading the newspaper or watching television: not at all 8. Moving or speaking so slowly that other people could have noticed. Or the opposite - being so fidgety or restless that you have been moving around a lot more than usual: several days 9. Thoughts that you would be better off or of hurting yourself in some way: not at all Total score: 5 Depression Screening Interpretation: Positive Depression Screening Follow-up: Existing condition and In treatment Depression Screening Done: Yes 89124 - PHQ-9 Billing: Yes Source: Developed by Drs. Hans Singh, Nancy Deshpande, Bhavesh Farah and colleagues, with an educational giancarlo from [employer]. Thrive Questionnaire Date Thrive assessed: 04/16/24 I am a: Patient What is your living situation today?: I have a steady place to live Within the past 12 months, did the food you bought not last and you didn't have the money to get more?: Sometimes True Within the past 12 months, did you worry whether your food would run out before you got money to buy more?: Sometimes True Do you have trouble paying for medicines?: No Do you have trouble getting transportation to medical appointments?: No Do you have trouble paying your heating and electricity bill?: Yes Do you have trouble taking care of your child, family member or friend?: No Do you have trouble with day-to-day activities such as bathing, preparing meals, shopping, managing finances, etc.?: No Are you currently unemployed and looking for a job?: No Are you interested in more education?: No Please select the resources that you would like help with: None Currently or been in a relationship where the following occur: No concerns reported THRIVE Score: 3 AUDIT C Alcohol Use Questionnaire (AUDIT-C) 1. How often do you have a drink containing alcohol?: Monthly or less 2. How many drinks containing alcohol do you have on a typical day when you are drinking?: 3 or 4 3. How often do you have six or more drinks on one occasion?: Monthly Total Score: 4 Score Reviewed/Action Taken: Yes KEITH-7 AMB Questionnaire KEITH-7 Date KEITH - 7 assessed: 04/16/24 Feeling nervous, anxious, or on edge: 1 = Several days Not being able to stop or control worryin = Several days Worrying too much about different things: 1 = Several days Trouble relaxin = Several days Being so restless that it is hard to sit still: 1 = Several days Becoming easily annoyed or irritable: 1 = Several days Feeling afraid as if something awful might happen: 1 = Several days Total KEITH-7 score (0-4 normal; 5-9 mild; 10-14 moderate; 15-21 severe): 7 Source: Developed by Drs. Hans Singh, Nancy Deshpande, Bhavesh Farah and colleagues, with an educational giancarlo from [employer]. KEITH-7 Assessment Billing KEITH-7 Assessment Tool: KEITH-7 Assessment 69574 Review of Systems Const Details: Const Denies chills, Denies fatigue, Denies fever(s), Denies headache(s) and Denies weakness ENT Denies dizziness and Denies headache(s) Card Denies chest pain, Denies lightheadedness, Denies dyspnea and Denies other (Palpitations) Resp Denies cough, Denies dyspnea, Denies wheezing and Denies other ( shortness of breath) GI Denies abdominal pain, Denies melena, Denies hematochezia, Denies change in bowel habits, Denies dyspepsia and Denies nausea Denies hematuria and Denies dysuria Musc Denies abnormal gait, Denies myalgias, Denies arthralgias, Denies numbness and Denies tingling Skin/Breast Denies rash, Denies unusual bruising and Denies wounds Neuro Denies abnormal gait, Denies dizziness, Denies headache(s), Denies memory loss, Denies numbness, Denies Sensory deficit (Neuro), Denies tingling and Denies weakness Psych Denies anxiety, Denies depression, Denies memory loss Endo Denies cold intolerance, Denies fatigue, Denies heat intolerance, Denies polydipsia and Denies polyuria Aller/Immun Denies wheezing Physical exam (Primary Care) Vital Signs: Last Vital Signs Temp 97.0 F 04/16/24 15:36 Pulse 89 04/16/24 15:36 Resp 16 04/16/24 15:36 BP 156/79 H 04/16/24 15:36 Pulse Ox 97 04/16/24 15:36 Oxygen Delivery Method Room Air 04/16/24 15:36 BMI result Body Mass Index 29.5 Tobacco/Smoking Status: Tobacco use Status Tobacco use date assessed 04/16/24 04/16/24 15:39 Patient Tobacco Use Status Current everyday Tobacco 04/16/24 15:39 Tobacco use type Cigarette 04/16/24 15:39 e-Cigarette/Vaping Use Never Used 04/16/24 15:39 PHQ-9: PHQ-9 Score PHQ-9: Total score 5 04/16/24 15:39 Depression Screening Interpretation: Positive Depression Screening Follow-up: Existing condition and In treatment Thrive Assessment: Date of Thrive Assessment Date Thrive assessed 04/16/24 04/16/24 15:39 Currently or been in a relationship where the following occur: No concerns reported Const Other: General: no acute distress and well developed Nutritional Appearance: well nourished Orientation/consciousness: patient oriented x3 HENMT Head: Yes normocephalic and Yes atraumatic Eyes General: appearance normal, both eyes and all related structures Pupils: Equal, round and reactive pupils present EOM: EOMs intact bilaterally Resp Effort & Inspection: normal respiratory effort Auscultation: clear to auscultation bilaterally Cardio Rate: regular rate Rhythm: regular rhythm Heart sounds: S1 normal heart sound present, S2 normal heart sound present, no gallops, no murmurs and no rubs GI Palpation (GI): No Abdominal aortic bruit present, Soft to palpation, nontender, No hepatosplenomegaly present and No Rebound tenderness present Auscultation: normal bowel sounds General: Yes no CVA tenderness Back/Spine/Pelvis Back: no CVA tenderness Cervical Spine: cervical ROM normal and No Cervical spine tenderness Thoracic/Lumbar Spine: thoraco-lumbar ROM normal, No pain with thoraco-lumbar ROM, No thoracic spinal tenderness and No lumbar spinal tenderness Extrem General: Yes normal to inspection, No edema and No calf tenderness Skin General: warm and dry. Normal skin color. Normal skin turgor Lesions: no lesions Rashes: no rashes Trauma: no lacerations or abrasions Wounds: no wounds Nails: normal Neuro General: patient oriented x3, gait normal and no focal neuro deficit Cranial nerves: Yes Equal, round and reactive pupils present Cognition (Neuro): normal cognition Gait exam (Neuro): Normal gait present Sensory Exam: No Sensory deficit (Neuro) Psych Appearance: grossly normal Affect: normal affect Attitude: cooperative Thought process: Normal thought process present Coding Level of Care Code Est Pt Level 4 (09263) Diagnoses Anxiety and depression F41.9; F32.A Primary hypertension I10 Hypertension type: primary hypertension Laboratory tests ordered as part of a complete physical exam (CPE) Z00.00 Additional Codes KEITH-7 Assessment Billing - KEITH-7 Assessment Tool: KEITH-7 Assessment 34529 ([id number]) PHQ-9 - 15306 - PHQ-9 Billing: Yes ([id number]) Assessment & Plan Assessment & Plan (1) Anxiety and depression: Code(s): F41.9 - Anxiety disorder, unspecified; F32.A - Depression, unspecified Category: Medical Plan: Maintain current management with escitalopram and monitor for any changes in symptom control. (2) Hypertension: Code(s): I10 - Essential (primary) hypertension Category: Medical Qualifiers: Hypertension type: primary hypertension Qualified Code(s): I10 - Essential (primary) hypertension Plan: Start metoprolol 12. 5 mg daily to further control blood pressure. Continue to take amlodipine 10mg daily. Follow-up in two weeks to assess blood pressure control: (3) Laboratory tests ordered as part of a complete physical exam (CPE): Code(s): Z00.00 - Encounter for general adult medical examination without abnormal findin gs Category: Medical Plan: Fasting labs ordered as part of a complete physical exam. Advised to fast for at least 10 hours before getting labs drawn. May drink water Verbalized understanding and agreed with treatment plan. Plan During the visit, I discussed the management of the patient's hypertension, anxiety, and depression. For hypertension, I advised continuing amlodipine and initiating metoprolol to achieve better control. I reviewed her current lifestyle modifications and stressed the importance of low salt intake and regular exercise. We talked about her anxiety and depressive symptoms being largely under control, but acknowledged family stress as a contributing factor. I advised continuing her current medication regimen and stressed monitoring for any stress-related symptom exacerbation. The recent pneumonia was addressed, with confirmation that symptoms resolved post-antibiotics. Orders: Orders Complete Blood Count Auto Diff Today Z00.00 - Encounter for general adult medical examination without abnormal findings Comprehensive [place]. Panel Fast Today Z00.00 - Encounter for general adult m edical examination without abnormal findings TSH reflex Free T4 Today Z00.00 - Encounter for general adult medical examination without abnormal findings UA CC w/rflx Micro + Cult Today Z00.00 - Encounter for general adult medical examination without abnormal findings Microalbumin, Random (w Creat) Today Z00.00 - Encounter for general adult medical examination without abnormal findings Medications: New metoprolol tartrate 12.5 mg (1/2 x 25 mg) PO DAILY 30 days 15 tabs 3RF Patient Instructions: - Continue taking amlodipine 10 mg and escitalopram 10 mg daily as prescribed. - Start metoprolol 12.5 mg daily for blood pressure management. - Maintain low-salt diet and regular exercise routine. - Schedule follow-up appointment in two weeks for blood pressure monitoring and physical exam. - Follow up on lung x-ray results and seek medical attention if pneumonia symptoms return. - Monitor stress levels and manage anxiety symptoms with prescribed medications. - Return sooner if there are any changes in symptoms or new concerns. Patient was informed and verbally consented to the use of an ambient scribe for clinic note documentation during this visit.
[2024-04-16 15:36] VITALS: BP 156/79; PULSE 89; RESP 16; TEMP 36.1; O2SAT 97; BMI 29.5
[2024-04-16 15:56] VITALS: BP 146/80; PULSE 88
== END 2024-04-16 16:04 | disposition home or self-care (01) ==
PROVIDERS: PCP Nurse Practitioner Family; Visit Provider Nurse Practitioner Family
DX: F41.9 Anxiety disorder, unspecified (principal); F32.A Depression, unspecified; I10 Essential (primary) hypertension; Z00.00 Encounter for general adult medical examination without abnormal findings

== ENCOUNTER → 2024-04-16 15:28 | Outpatient (BNVA) | payer MEDICARE, SELFPAY | PROVIDERS: PCP Nurse Practitioner Family; Visit Provider Nurse Practitioner Family | DX: F41.9 Anxiety disorder, unspecified (principal); F32.A Depression, unspecified; I10 Essential (primary) hypertension | CPT/HCPCS: 96127; 99212 ==

== ENCOUNTER 2024-05-28 13:31 | Outpatient (AMB) | payer MEDICARE, SELFPAY ==
--- NOTE | 2024-05-28 13:31 | A.OFFVIS_ITS ---
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 No complaints. Last Pap/HPV was negative in 06/08 Last Mammogram was BI-RADS 1 in 12/05 Last Colonoscopy was done in 10/06, the recommendation was to repeat in 10 years Last DEXA scan was done in 12/05 [facility] Medical History Osteopenia Nicotine dependence, cigarettes, uncomplicated Anemia Hyperlipidemia Postmenopausal Surgical History Hx of colonoscopy History of umbilical hernia repair Family History Father Prostate cancer Mother Cardiac arrest Sister Breast cancer Social History Household Members: Family Both parents involved: No Caregiver staying overnight: No Housing: House Are you a primary child care centre manager to a significant other at home: No Do you presently have visiting nurse or other home services: No 75 years or older and lives alone: No Alcohol intake: former Patient Tobacco Use Status: Current everyday Tobacco user Tobacco use type: Cigarette Cigarette Packs Per Day: 0.5 Cigarettes Per Day: 10 Years Smoked: onset 20yo, 1ppd x 47yrs, now 1/2ppd, 45pyh, Restarted 03/20/23 e-Cigarette/Vaping Use: Never Used service: No Current occupational status: retired Current occupational exposures/hazards: No Cognitive needs: No Hearing needs: No Vision needs: Yes Female Reproductive History Menstrual Age of Menarche: 17 Date of last pap smear: 05/27/23 Date of Mammogram: 11/03/22 Review of Systems Const All systems reviewed & are unremarkable except as noted in HPI and below Card Reports as per HPI Resp Reports as per HPI GI Reports as per HPI and Reports no additional complaints Reports as per HPI Physical Exam Vital Signs: Last Vital Signs BP 142/80 H 05/28/24 13:37 BMI result Body Mass Index 29.3 Const General: cooperative, healthy appearing and comfortable Chest Chest palpation & inspection: normal inspection of the chest and normal palpation of entire chest wall Breast/axilla inspection: normal inspection of the breasts and normal inspection of the axillae Breast/axilla palpation: normal palpation of the breasts, normal palpation of the axillae and no axillary lymphadenopathy Resp Effort & Inspection: normal respiratory effort Auscultation: clear to auscultation bilaterally Percussion: percussion normal Cardio Palpation: normal PMI Rate: regular rate Rhythm: regular rhythm Heart sounds: no murmurs and no rubs Peripheral pulses: Peripheral pulses 2+ throughout GI Inspection: Yes normal to inspection Palpation (GI): Soft to palpation, nontender, no guarding, not rigid and No hepatosplenomegaly present Percussion: Yes normal to percussion Auscultation: normal bowel sounds Rectal Exam - Female: deferred General: Yes bladder normal to palpation External Female Exam: No lesion Speculum Exam - Vagina: normal appearance of the vagina, normal palpation, normal vaginal discharge and not erythematous Speculum Exam - Cervix: normal appearance of the cervix and normal palpation Bimanual exam- vagina & uterus: normal bimanual exam, normal palpation, uterine size normal, bladder normal to palpation, consistency normal and normal palpation Bimanual Exam- Adnexa, other: normal adnexae, no masses and no tenderness Assessment & Plan Assessment & Plan (1) Well woman exam: Code(s): Z01.419 - Encounter for gynecological examination (general) (routine) without abnormal findings Category: Medical Plan: Co testing not indicated since the patient 's age is above 65 with no history of abnormal Pap smears last 25 years. Counseled the patient about the recommended dietary allowance of 1200 mg of Calcium & 800 IU of vitamin D. Mammogram ordered. DEXA scan ordered for 01/07 The patient was instructed to perform monthly self-breast exams and to schedule a 2 week DEXA scan follow-up appointment and an annual exam in a year; All questions answered and the patient verbalized understanding. Orders: Orders MM tomosynthesis screening BI Today Z12.31 - Encounter for screening mammogram for malignant neoplasm of breast XR DEXA axial skeleton 6 Months Z78.0 - Asymptomatic menopausal state Coding Level of Care Code Est Pt Prev Care >65y(71037) Diagnoses Well woman exam Z01.419
[2024-05-28 13:37] VITALS: BP 142/80; BMI 29.3
== END 2024-05-28 13:54 | disposition home or self-care (01) ==
PROVIDERS: PCP Nurse Practitioner Family; Visit Provider Obstetrics & Gynecology
DX: Z01.419 Encounter for gynecological examination (general) (routine) without abnormal findings (principal)
CPT/HCPCS: 99397; 99459

== ENCOUNTER → 2024-05-28 13:31 | Outpatient (BNVA) | payer MEDICARE, SELFPAY | PROVIDERS: PCP Nurse Practitioner Family; Visit Provider Obstetrics & Gynecology | DX: Z01.419 Encounter for gynecological examination (general) (routine) without abnormal findings (principal) | CPT/HCPCS: 99397; 99459 ==

== ENCOUNTER 2024-07-09 13:31 | Outpatient (AMB) | payer MEDICARE, SELFPAY ==
--- NOTE | 2024-07-08 19:43 | MHC.OFFVIS ---
Vital Signs 07/09/24 13:33 Height 5 ft 2 in Weight 159 lb 13.362 oz BMI 29.2 BP 170/80 H Blood Pressure Location Lt brachial Position Sitting Pulse 75 Pulse Source Pulse Oximeter Pulse Oximetry (%) 98 Oxygen Delivery Method Room Air Intake Visit Reasons: Bronchiectasis Intake Note: *Of note..patient did not take meds for her BP today..forgot . Track Worker Required: No Jack Setter: Jack Setter offered & declined Accompanied by: Self / Same As Patient Allergies Penicillins Allergy (Mild, Verified 07/09/24 13:39) Rash Medication List - Last Reconciled 07/09/24 by Jonna Michelle, NORM amlodipine 10 mg PO DAILY 90 days atorvastatin 20 mg PO BEDTIME cholecalciferol (vitamin D3) 50 mcg PO DAILY 90 days escitalopram oxalate 10 mg PO DAILY 30 days hydroxyzine HCl 50 mg (2 x 25 mg) PO BID PRN metoprolol tartrate 12.5 mg (1/2 x 25 mg) PO DAILY 30 days naproxen 500 mg PO BID PRN 30 days HPI HPI Bronchiectasis: Details: Jannet is a pleasant 69 year old female, current smoker, with 45 pyh with underlying bronchiectasis, anemia and HLD. She was referred by the lung cancer screening program for RADS0 finding. Chest CT 02/2024 revealed bandlike atelectasis of RLL that was not present on prior chest CT. She does not believe she had any URI symptoms at the time. She currently denies any cough, wheezing, chest tightness or dyspnea. She has an albuterol MDI however does not use. She denies prior h/o asthma. She denies seasonal allergies. 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 She denies any pertinent family history. [facility] Medical History Osteopenia Nicotine dependence, cigarettes, uncomplicated Anemia Hyperlipidemia Postmenopausal Surgical History Hx of colonoscopy History of umbilical hernia repair Family History Father Prostate cancer Mother Cardiac arrest Sister Breast cancer Social History Household Members: Family Both parents involved: No Caregiver staying overnight: No Housing: House Are you a primary day care center director to a significant other at home: No Do you presently have visiting nurse or other home services: No 75 years or older and lives alone: No Alcohol intake: former Patient Tobacco Use Status: Current everyday Tobacco user Tobacco use type: Cigarette Cigarette Packs Per Day: 0.5 Cigarettes Per Day: 10 Years Smoked: onset 20yo, 1ppd x 47yrs, now 1/2ppd, 45pyh, Restarted 03/20/23 e-Cigarette/Vaping Use: Never Used service: No Current occupational status: retired Current occupational exposures/hazards: No Cognitive needs: No Hearing needs: No Vision needs: Yes Female Reproductive History Menstrual Age of Menarche: 17 Review of Systems Const Denies chills, Denies excessive sweating, Denies fever(s), Denies headache(s) and Denies night sweats Eyes Denies dry eyes, Denies irritation and Denies itchy eyes ENT Reports Normal hearing present, Denies headache(s), Denies nasal congestion, Denies nasal discharge, Denies post nasal drip and Denies sore throat Card Denies chest pain, Denies chest pain at rest, Denies chest pain with activity, Denies claudication, Denies leg edema, Denies dyspnea, Denies dyspnea on exertion, Denies orthopnea and Denies paroxysmal nocturnal dyspnea Resp Denies chest congestion, Denies cough, Denies excessive phlegm production, Denies pain on inspiration, Denies pain with cough, Denies dyspnea, Denies dyspnea on exertion, Denies stridor and Denies wheezing Musc Denies myalgias Neuro Reports Normal hearing present and Denies headache(s) Endo Denies excessive sweating Cory/Lymph Denies lymphadenopathy Aller/Immun Denies itchy eyes, Denies seasonal rhinorrhea and Denies wheezing Physical Exam Vital Signs: Last Vital Signs Pulse 75 07/09/24 13:33 BP 170/80 H 07/09/24 13:33 Pulse Ox 98 07/09/24 13:33 Oxygen Delivery Method Room Air 07/09/24 13:33 BMI result Body Mass Index 29.2 Const General: cooperative, healthy appearing, comfortable, no acute distress, well developed and alert Orientation/consciousness: patient oriented x3 Limitations: no limitations HEENT Head: Yes normal to inspection, Yes normocephalic and Yes atraumatic Ears: hearing grossly normal bilaterally and external ears normal Eyes General: appearance normal, both eyes and all related structures Eyelids: Yes eyelids normal Sclerae: sclerae normal EOM: EOMs intact bilaterally Neck Neck: Yes normal visual inspection and Yes no lymphadenopathy Lymphatic: no lymphadenopathy noted Chest Chest palpation & inspection: normal inspection of the chest Resp Effort & Inspection: normal respiratory effort, able to speak in complete sentences, no audible wheezes, no cough, no stridor, not tachypneic, no tripod positioning and no use of accessory muscles Auscultation: clear to auscultation bilaterally Cardio Jugular venous distension: no JVD Rate: regular rate Rhythm: regular rhythm Skin Other: warm, dry General skin exam: no rashes or lesions noted Neuro General: patient oriented x3 Cranial nerves: Yes Normal hearing present Cognition (Neuro): normal cognition Gait exam (Neuro): Normal gait present Extrem General: Yes normal to inspection, Yes capillary refill normal, Yes no clubbing, cyanosis or edema and Yes no pedal edema Psych Appearance: grossly normal and well kempt Speech and movement: Normal speech and movement present and Clear speech present Affect: normal affect Attitude: cooperative Thought process: Normal thought process present Thought content: Normal thought content present Insight: Good insight present (Psych) Judgement: Good judgement present (Psych) Results Reviewed Results Reviewed: [place] [address] CT Scan Report Signed with Rubina Patient: Jannet Sheets MR#: [id number] : 1955 Acct:[id number] Age/Sex: 69 / F ADM Date: 03/13/24 Loc: HO.CT Attending Dr: Mandy Brown PA-C Ordering Physician: Mandy Brown PA-C Date of Service: 03/13/24 Procedure(s): CT lung screening Accession Number(s): [id number] cc: Mandy Brown PA-C; Susan Maria CNP~ ADDENDUM ADDENDUM #1 Results Acknowledgement: Results received and confirmed with Milena Coley certified surgical technologist, from GISSELL Grubbs's office at 9:56 AM 04/30/2024. Trinidad Ball, 04/30/2024 9:58 AM Electronically signed by: Moise Salamanca MD 04/30/2024 10:25 AM [facility] Addendum Dictated By: Moise Salamanca MD Addendum Signed By: <Electronically signed by Moise Salamanca MD in OV> 04/30/24 1025 Addendum Cosigned By: DD/ TD/TT: 03/13/24 EXAMINATION: CT LOW-DOSE SCREENING CHEST WITHOUT CONTRAST CLINICAL INFORMATION: Nicotine dependence, cigarettes, uncomplicated. The patient is a current smoker with a 47 pack-year history of smoking. COMPARISON: CT chest 11/19/2022. TECHNIQUE: Multidetector volumetric CT imaging of the chest is performed on a Siemens SOMATOM Perspective scanner without contrast using low dose technique. Additional 2D coronal and sagittal reformatted images and axial 3D maximum intensity projection (MIP) images are generated on the CT workstation. This CT examination was performed using dose optimization techniques as appropriate, variously including the following: *Automated exposure control *Adjustment of mA and/or kV according to patient size (this includes techniques or standardized protocols for targeted exams where dose is matched to indication/reason for exam; i.e. extremities or head) *Use of iterative reconstruction technique TOTAL EXAM DLP: 87 mGy-cm. CTDIvol: 2.41 mGy. FINDINGS: PULMONARY NODULES: Some scattered small punctate pulmonary nodules are seen. No suspicious lung masses identified. LUNGS: Lungs bilaterally symmetrically expanded. There is mild to moderate emphysema. There is bandlike thick atelectasis seen in the right lower lobe with associated traction bronchiectasis which is new when compared to the prior study. This is associated with some bronchial occlusion. No effusion or pneumothorax. Central airways patent. MEDIASTINUM: No mediastinal, hilar or axillary adenopathy or free fluid collection. CORONARY ARTERY CALCIFICATION: Mild THYROID GLAND: Unremarkable to the extent seen. CARDIOVASCULAR STRUCTURES: Aortic and heart size normal. No pericardial effusion. CHEST WALL/AXILLA: Unremarkable. UPPER ABDOMEN: There is hepatic steatosis. OSSEOUS STRUCTURES: No suspicious focal findings. CT/CT lung screening IMPRESSION: 1. No evidence of pulmonary malignancy. 2. New bandlike atelectasis right lower lobe with associated traction bronchiectasis associated with some bronchial occlusive changes. 3. Incidental note made of hepatic steatosis and mild to moderate emphysema. ASSESSMENT: 1. Lung-RADS Category 0: Incomplete. Reason: Possibly inflammatory 2. Lung-RADS Category S: Negative. There are no clinically significant or potentially clinically significant findings not related to the lungs requiring urgent additional evaluation. RECOMMENDATION: A 1 to 3-month follow up low-dose lung CT scan is recommended. An order for CT LUNG CANCER SCREENING SHORT INTERVAL FOLLOWUP ([id number]) can be placed. Electronically signed by: Moise Salamanca MD 04/30/2024 09:48 AM EST Dictated By: Moise Salamanca MD Signed By: <Electronically signed by Moise Salamanca MD in OV> 04/30/24 0948 DD/ 1500 TD/TT: 03/13/24 1532 Adjunct Spanish Instructor: JACKELINE Assessment & Plan Assessment & Plan (1) Bronchiectasis: Code(s): J47.9 - Bronchiectasis, uncomplicated Category: Medical (2) Atelectasis: Code(s): J98.11 - Atelectasis Category: Medical (3) Nicotine dependence, cigarettes, uncomplicated: Comment: (current smoker - onset 20yo, 1ppd x 47yrs, now 1/2ppd, 45pyh) Code(s): F17.210 - Nicotine dependence, cigarettes, uncomplicated Category: Medical Plan Jannet presents for pulmonary evaluation after chest CT from LDCT revealed new band like area of atelectasis of RLL with associated bronchiectasis. Will repeat chest CT now. Smoking cessation reviewed and patient would like to start NRT, orders entered. All questions were answered and patient is in agreement of plan. Will follow up to review results or sooner if needed. Orders: Orders CT chest wo IV con Today J47.9 - Bronchiectasis, uncomplicated, J98.11 - Atelectasis Medications: New nicotine 1 patch transdermal DAILY 28 ea 0RF nicotine 1 patch transdermal Q24H 14 ea 0RF Coding Level of Care Code New Pt Level 4 (86334) Diagnoses Bronchiectasis J47.9 Atelectasis J98.11 Nicotine dependence, cigarettes, uncomplicated F17.210
[2024-07-09 13:33] VITALS: BP 170/80; PULSE 75; O2SAT 98; BMI 29.2
== END 2024-07-09 14:00 | disposition home or self-care (01) ==
PROVIDERS: PCP Nurse Practitioner Family; Visit Provider Nurse Practitioner Family
DX: J47.9 Bronchiectasis, uncomplicated (principal); J98.11 Atelectasis; F17.210 Nicotine dependence, cigarettes, uncomplicated
CPT/HCPCS: 99204

== ENCOUNTER → 2024-07-09 13:31 | Outpatient (BNVA) | payer MEDICARE, SELFPAY | PROVIDERS: PCP Nurse Practitioner Family; Visit Provider Nurse Practitioner Family | DX: J47.9 Bronchiectasis, uncomplicated (principal); J98.11 Atelectasis; F17.210 Nicotine dependence, cigarettes, uncomplicated | CPT/HCPCS: 99202 ==

== ENCOUNTER 2024-08-24 12:50 | Outpatient (REF) | payer MEDICARE, SELFPAY ==
--- NOTE | ~2024-08-24 | CT_ITS ---
EXAMINATION: CT CHEST WITHOUT IV CONTRAST INDICATION: J98.11 - Atelectasis COMPARISON: Comparison is made with the prior examination dated 03/13/2024. TECHNIQUE: Helical CT scan of the chest was performed without intravenous contrast. Coronal and sagittal reformatted images were generated and reviewed. This CT exam was performed with one or more of the following dose reduction techniques: automated exposure control, adjustment of the mA and/or kV according to patient size, use of iterative reconstruction technique. DLP: 126 mGy-cm CHEST: THYROID: The thyroid is unremarkable. LUNGS: There is a punctate calcified granuloma in the left upper lobe (series 9, image 62). The lungs are otherwise clear. The previously seen subsegmental atelectasis in the right lower lobe has resolved. MEDIASTINUM: There is no mediastinal lymphadenopathy. GO: Evaluation of the hilar regions is limited by lack of intravenous contrast material. CARDIOVASCULATURE: The heart is normal in size. There is no pericardial effusion. The thoracic aorta is normal in caliber. DEGREE OF CORONARY CALCIFICATION: mild PLEURA: There is no pleural effusion. No pneumothorax. MAIN AIRWAYS: The mainstem bronchi and proximal branches are patent. AXILLA: There is no axillary lymphadenopathy. BONES AND SOFT TISSUES: Unremarkable UPPER ABDOMEN: The visualized portions of the liver, spleen, and adrenals have an unremarkable unenhanced appearance. CT/CT chest wo IV con IMPRESSION: Unremarkable unenhanced CT of the chest. The previously seen right lower lobe subsegmental atelectasis has resolved. The patient may resume annual screening low-dose chest CT. Electronically signed by: Hans Melendez MD 08/24/2024 02:34 PM EDT
== END 2024-08-24 12:51 | disposition home or self-care (01) ==
LOC: HO.CT 12:50
PROVIDERS: PCP Nurse Practitioner Family; Visit Provider Nurse Practitioner Family
DX: J98.11 Atelectasis (principal); J47.9 Bronchiectasis, uncomplicated
CPT/HCPCS: 71250

== ENCOUNTER → 2024-08-24 12:52 | Outpatient (BNV) | payer MEDICARE, SELFPAY | PROVIDERS: PCP Nurse Practitioner Family; Visit Provider Radiology Diagnostic Radiology | DX: J98.11 Atelectasis (principal) | CPT/HCPCS: 71250 ==

== ENCOUNTER 2024-08-27 14:58 | Outpatient (AMB) | payer MEDICARE, SELFPAY ==
--- NOTE | 2024-08-27 15:00 | A.OFFPC_ITS ---
Vital Signs 08/27/24 15:04 08/27/24 16:18 08/27/24 16:18 Height 5 ft 2 in Weight 158 lb 4 oz BMI 28.9 BP 168/70 H 160/76 H 152/70 H Blood Pressure Location Rt brachial Lt brachial Rt brachial Position Sitting Sitting Sitting Respiration 16 Pulse 74 69 Pulse Source Pulse Oximeter Pulse Oximeter Temp 98.2 F Temp Source Oral Pulse Oximetry (%) 97 Oxygen Delivery Method Room Air Intake Visit Reasons: Review studies from CT Scan Intake Note: patient here for follow up on CT scan. Ic Engineer Required: No Is last menstrual period known: No Post menopausal: No Patient : No Allergies Penicillins Allergy (Mild, Verified 08/27/24 15:28) Rash Medication List - Last Reconciled 08/27/24 by Susan Maria CNP amlodipine 10 mg PO DAILY 90 days atorvastatin 20 mg PO BEDTIME cholecalciferol (vitamin D3) 50 mcg PO DAILY 90 days escitalopram oxalate 10 mg PO DAILY 30 days metoprolol tartrate 12.5 mg (1/2 x 25 mg) PO DAILY 30 days naproxen 500 mg PO BID PRN 30 days nicotine 1 patch transdermal DAILY nicotine 1 patch transdermal Q24H Tobacco use date assessed: 08/27/24 Fall risk assessment: No Falls in past year Last assessed Fall Risk: 08/27/24 Dental Screening Dental Screen Date: 08/27/24 Did you have a dental visit in the last 12 months?: Yes Did you have a dental problem in the last 6 months where you did not have access to dental care?: No Was dental information given to patient?: Patient has dentist HPI HPI Comments History of Present Illness Details 69-year-old female presents with request to review her recent chest CT on 08/24/2024. Her last visit was in 04/16/2024 and was advised to follow-up in 2 weeks for blood pressure management. She notes that she lost her health insurance coverage and was not covered by us. She obtained new insurance coverage about 2 weeks ago. She has been taking her medications as prescribed without adverse reactions. She ran out of amlodipine 2 weeks ago and took her last dose of metoprolol this morning. She notes that her anxiety and depressive symptoms are generally well controlled. [facility] Medical History Osteopenia Nicotine dependence, cigarettes, uncomplicated Anemia Hyperlipidemia Postmenopausal Surgical History Hx of colonoscopy History of umbilical hernia repair Family History Father Prostate cancer Mother Cardiac arrest Sister Breast cancer Social History Household Members: Family Both parents involved: No Caregiver staying overnight: No Housing: House Are you a primary family day care provider to a significant other at home: No Do you presently have visiting nurse or other home services: No 75 years or older and lives alone: No Alcohol intake: former Patient Tobacco Use Status: Current everyday Tobacco user Tobacco use type: Cigarette Cigarette Packs Per Day: 0.5 Cigarettes Per Day: 10 Years Smoked: onset 20yo, 1ppd x 47yrs, now 1/2ppd, 45pyh, Restarted 03/20/23 e-Cigarette/Vaping Use: Never Used Second Hand Smoke Exposure: No service: No Current occupational status: retired Current occupational exposures/hazards: No Cognitive needs: No Hearing needs: No Vision needs: Yes Female Reproductive History Menstrual Age of Menarche: 17 Questionnaire PHQ-9 Over the last 2 weeks, how often have you been bothered by any of the following problems? 1. Little interest or pleasure in doing things: nearly every day 2. Feeling down, depressed, or hopeless: more than half the days 3. Trouble falling or staying asleep, or sleeping too much: nearly every day 4. Feeling tired or having little energy: nearly every day 5. Poor appetite or overeating: several days 6. Feeling bad about yourself - or that you are a failure or have let yourself or your family down: more than half the days 7. Trouble concentrating on things, such as reading the newspaper or watching television: more than half the days 8. Moving or speaking so slowly that other people could have noticed. Or the opposite - being so fidgety or restless that you have been moving around a lot more than usual: nearly every day 9. Thoughts that you would be better off or of hurting yourself in some way: not at all Total score: 19 Depression Screening Interpretation: Positive Depression Screening Follow-up: Existing condition and In treatment Depression Screening Done: Yes 98824 - PHQ-9 Billing: Yes Source: Developed by Drs. Hans Singh, Nancy Deshpande, Bhavesh Farah and colleagues, with an educational giancarlo from [employer]. Thrive Questionnaire Date Thrive assessed: 04/16/24 KEITH-7 AMB Questionnaire KEITH-7 Date KEITH - 7 assessed: 08/27/24 Feeling nervous, anxious, or on edge: 3 = Nearly every day Not being able to stop or control worryin = More than half the days Worrying too much about different things: 3 = Nearly every day Trouble relaxin = More than half the days Being so restless that it is hard to sit still: 3 = Nearly every day Becoming easily annoyed or irritable: 2 = More than half the days Feeling afraid as if something awful might happen: 3 = Nearly every day Total KEITH-7 score (0-4 normal; 5-9 mild; 10-14 moderate; 15-21 severe): 18 Source: Developed by Drs. Hans Singh, Nancy Deshpande, Bhavesh Farah and colleagues, with an educational giancarlo from [employer]. KEITH-7 Assessment Billing KEITH-7 Assessment Tool: KEITH-7 Assessment 98911 Review of Systems Const Details: Const Denies chills, Denies fatigue, Denies fever(s), Denies headache(s) and Denies weakness ENT Denies dizziness and Denies headache(s) Card Denies chest pain, Denies lightheadedness, Denies dyspnea and Denies other (Palpitations) Resp Denies cough, Denies dyspnea, Denies wheezing and Denies other ( shortness of breath) GI Denies abdominal pain, Denies melena, Denies hematochezia, Denies change in bowel habits, Denies dyspepsia and Denies nausea Denies hematuria and Denies dysuria Musc Denies abnormal gait, Denies myalgias, Denies arthralgias, Denies numbness and Denies tingling Skin/Breast Denies rash, Denies unusual bruising and Denies wounds Neuro Denies abnormal gait, Denies dizziness, Denies headache(s), Denies memory loss, Denies numbness, Denies Sensory deficit (Neuro), Denies tingling and Denies weakness Psych Reports anxiety, Reports depression, Denies memory loss Endo Denies cold intolerance, Denies fatigue, Denies heat intolerance, Denies polydipsia and Denies polyuria Aller/Immun Denies wheezing Physical exam (Primary Care) Vital Signs: Last Vital Signs Temp 98.2 F 08/27/24 15:04 Pulse 69 08/27/24 16:18 Resp 16 08/27/24 15:04 BP 152/70 H 08/27/24 16:18 Pulse Ox 97 08/27/24 15:04 Oxygen Delivery Method Room Air 08/27/24 15:04 BMI result Body Mass Index 28.9 Tobacco/Smoking Status: Tobacco use Status Tobacco use date assessed 08/27/24 08/27/24 15:09 Patient Tobacco Use Status Current everyday Tobacco 08/27/24 15:02 Tobacco use type Cigarette 08/27/24 15:02 e-Cigarette/Vaping Use Never Used 08/27/24 15:02 PHQ-9: PHQ-9 Score PHQ-9: Total score 19 08/27/24 16:19 Depression Screening Interpretation: Positive Depression Screening Follow-up: Existing condition and In treatment Thrive Assessment: Date of Thrive Assessment Date Thrive assessed 04/16/24 08/27/24 15:02 Const Other: General: no acute distress and well developed Nutritional Appearance: well nourished Orientation/consciousness: patient oriented x3 HENMT Head: Yes normocephalic and Yes atraumatic Eyes General: appearance normal, both eyes and all related structures Pupils: Equal, round and reactive pupils present EOM: EOMs intact bilaterally Resp Effort & Inspection: normal respiratory effort Auscultation: clear to auscultation bilaterally Cardio Rate: regular rate Rhythm: regular rhythm Heart sounds: S1 normal heart sound present, S2 normal heart sound present, no gallops, no murmurs and no rubs GI Palpation (GI): No Abdominal aortic bruit present, Soft to palpation, nontender, No hepatosplenomegaly present and No Rebound tenderness present Auscultation: normal bowel sounds General: Yes no CVA tenderness Back/Spine/Pelvis Back: no CVA tenderness Cervical Spine: cervical ROM normal and No Cervical spine tenderness Thoracic/Lumbar Spine: thoraco-lumbar ROM normal, No pain with thoraco-lumbar ROM, No thoracic spinal tenderness and No lumbar spinal tenderness Extrem General: Yes normal to inspection, No edema and No calf tenderness Skin General: warm and dry. Normal skin color. Normal skin turgor Neuro General: patient oriented x3, gait normal and no focal neuro deficit Cranial nerves: Yes Equal, round and reactive pupils present Cognition (Neuro): normal cognition Gait exam (Neuro): Normal gait present Sensory Exam: No Sensory deficit (Neuro) Psych Appearance: grossly normal Affect: normal affect Attitude: cooperative Thought process: Normal thought process present Coding Level of Care Code Est Pt Level 4 (19828) Diagnoses Primary hypertension I10 Hypertension type: primary hypertension Anxiety and depression F41.9; F32.A Additional Codes KEITH-7 Assessment Billing - KEITH-7 Assessment Tool: KEITH-7 Assessment 46844 ([id number]) PHQ-9 - 26179 - PHQ-9 Billing: Yes ([id number]) Assessment & Plan Assessment & Plan (1) Hypertension: Code(s): I10 - Essential (primary) hypertension Category: Medical Qualifiers: Hypertension type: primary hypertension Qualified Code(s): I10 - Essential (primary) hypertension Plan: Resting blood pressure is 160/70, above goal of less than 140/90. Blood pressure improved to 150/70 after 30 minutes of clonidine administration. Medication refilled. Continue current treatment regimen. Routine exercise and low-sodium diet encouraged. Follow-up for nurse visit for blood pressure check in 1 week and with PCP in 2 weeks. Return sooner with symptoms or concerns. Verbalized understanding and agreed with treatment plan. (2) Anxiety and depression: Code(s): F41.9 - Anxiety disorder, unspecified; F32.A - Depression, unspecified Category: Medical Plan: Anxiety and depressive symptoms are generally well controlled. PHQ-9 and KEITH-7 scores revealed moderately severe depression and severe anxiety respectively. Will start hydroxyzine 25 mg 3 times daily as needed for anxiety; advised to take as prescribed. Instructed on the risks, benefits, and potential adverse reactions of the medication. Continue to take escitalopram as prescribed. Routine exercise encouraged. Follow-up in 2 weeks or sooner with symptoms or concerns. Verbalized understanding and agreed with the plan. Plan Recent chest CT reviewed with the patient; unremarkable findings. Orders: Orders Vitamin D 25-OH Total Today Z00.00 - Encounter for general adult medical examin ation without abnormal findings Medications: New hydroxyzine HCl 25 mg PO TID PRN 90 tabs 3RF anxiety Refilled nicotine 1 patch transdermal DAILY 28 ea 0RF amlodipine 10 mg PO DAILY 90 tabs 1RF 90 days metoprolol tartrate 12.5 mg (1/2 x 25 mg) PO DAILY 15 tabs 3RF 30 days
[2024-08-27 15:04] VITALS: BP 168/70; PULSE 74; RESP 16; TEMP 36.8; O2SAT 97; BMI 28.9
[2024-08-27 16:18] VITALS: BP 152/70; BP 160/76; PULSE 69
== END 2024-08-27 16:25 | disposition home or self-care (01) ==
LOC: HO.HMCFM 14:58
PROVIDERS: PCP Nurse Practitioner Family; Visit Provider Nurse Practitioner Family
DX: I10 Essential (primary) hypertension (principal); F41.9 Anxiety disorder, unspecified; F32.A Depression, unspecified

== ENCOUNTER → 2024-08-27 14:58 | Outpatient (BNVA) | payer MEDICARE, SELFPAY | PROVIDERS: PCP Nurse Practitioner Family; Visit Provider Nurse Practitioner Family | DX: I10 Essential (primary) hypertension (principal); F41.9 Anxiety disorder, unspecified; F32.A Depression, unspecified; F17.210 Nicotine dependence, cigarettes, uncomplicated | CPT/HCPCS: 96127; 99212 ==

== ENCOUNTER → 2024-09-04 13:40 | Outpatient (BNVA) | payer MEDICARE, SELFPAY | PROVIDERS: PCP Nurse Practitioner Family; Visit Provider Nurse Practitioner Family | DX: Z13.89 Encounter for screening for other disorder (principal) ==

== ENCOUNTER 2024-09-10 09:42 | Outpatient (REF) | payer MEDICARE, SELFPAY ==
[2024-09-10 11:08] LABS: MANUAL DIFF FLAG NO
[2024-09-10 11:46] LABS: Alanine Aminotransferase 26 U/L (0-31); Albumin Level 4.5 g/dL (3.5-5.0); Alkaline Phosphatase 115 U/L (39-117); Anion Gap 12 (12-20); Aspartate Amino Transferase 22 U/L (5-31); Bilirubin Total 0.5 mg/dL (0.0-1.0); Blood Urea Nitrogen 12 mg/dL (9-16); Calcium 9.2 mg/dL (8.4-10.2); Carbon Dioxide 25 mmol/L (22-29); Chloride 108 mmol/L (96-108); Cholesterol 153 mg/dL (<200); Estimated Glomerular Filt Rate > 60; Glucose Fasting 110 mg/dL (60-99); HDL Cholesterol 43 mg/dL (>40); LDL Cholesterol Calculated 74 mg/dL (<100); Potassium 3.8 mmol/L (3.3-5.1); Sodium 141 mmol/L (135-145); Total Protein 7.3 g/dL (6.5-8.0); Triglycerides 182 mg/dL (<150)
[2024-09-10 12:03] LABS: Vitamin D 25-OH Total 49.8 ng/mL (>30)
[2024-09-10 12:22] LABS: Basophils Percent Auto 0.7 % (0-2); Eosinophils Percent Auto 3.1 % (0-4); Hematocrit 39.1 % (37.0-47.0); Hemoglobin 12.4 g/dl (12.0-16.0); Imm Gran Abs Auto 0.02 X10*3/uL (0.00-0.03); Imm Gran Pct Auto 0.3 % (0.0-0.4); Lymphocytes Absolute Auto 1.5 X10*3/uL (1.2-4.9); Lymphocytes Percent Auto 21.1 % (20-40); Mean Corpuscular HGB Conc 31.7 g/dl (31.0-35.0); Mean Corpuscular Hemoglobin 23.4 pg (27.0-33.0); Mean Corpuscular Volume 73.8 fL (80.0-98.0); Mean Platelet Volume 11.9 fL (9.4-12.3); Monocytes Absolute Auto 0.6 X10*3/uL (0.1-1.2); Monocytes Percent Auto 7.8 % (2-11); Neutrophils Absolute Auto 4.8 x10*3/uL (2.0-8.3); Platelet Count 247 X10*3/uL (160-400); Red Cell Distribution Width 15.4 % (11.0-16.0); White Blood Count 7.2 X10*3/uL (4.8-10.8)
[2024-09-10 12:23] LABS: Basophils Absolute Auto 0.1 X10*3/uL (0.0-0.2); Eosinophils Absolute Auto 0.2 X10*3/uL (0.0-0.4)
== END 2024-09-10 09:43 | disposition home or self-care (01) ==
LOC: HO.WFDLDS 09:42
PROVIDERS: Visit Provider Nurse Practitioner Family
DX: Z00.00 Encounter for general adult medical examination without abnormal findings (principal); E78.5 Hyperlipidemia, unspecified
CPT/HCPCS: 36415; 80053; 80061; 82306; 84443; 85025

== ENCOUNTER 2024-09-11 12:48 | Outpatient (AMB) | payer MEDICARE, SELFPAY ==
--- NOTE | 2024-09-11 13:01 | MHC.PC.OV ---
Vital Signs 09/11/24 13:03 Height 5 ft 2 in Weight 159 lb 6 oz BMI 29.1 BP 130/74 Blood Pressure Location Rt brachial Position Sitting Respiration 16 Pulse 64 Pulse Source Pulse Oximeter Temp 98.1 F Temp Source Oral Pulse Oximetry (%) 98 Oxygen Delivery Method Room Air Intake Visit Reasons: 2 wks PCP HTN, anxiety, depression Intake Note: patient here for 2 wks follow up on HTN, Anxiety, depression Saw Handle Assembler Required: No Is last menstrual period known: No Post menopausal: No Patient : No Allergies Penicillins Allergy (Mild, Verified 09/11/24 13:24) Rash Medication List - Last Reconciled 09/11/24 by Susan Maria CNP amlodipine 10 mg PO DAILY 90 days atorvastatin 20 mg PO BEDTIME buspirone 10 mg PO BID 30 days cholecalciferol (vitamin D3) 50 mcg PO DAILY 90 days escitalopram oxalate 10 mg PO DAILY 30 days metoprolol tartrate 12.5 mg (1/2 x 25 mg) PO DAILY 30 days naproxen 500 mg PO BID PRN 30 days nicotine 1 patch transdermal Q24H nicotine 1 patch transdermal DAILY Tobacco use date assessed: 09/11/24 Fall risk assessment: No Falls in past year Last assessed Fall Risk: 09/11/24 Dental Screening Dental Screen Date: 09/11/24 Did you have a dental visit in the last 12 months?: Yes Did you have a dental problem in the last 6 months where you did not have access to dental care?: No Was dental information given to patient?: Patient has dentist HPI HPI Comments History of Present Illness Details 69-year-old female presents for hypertension, anxiety, and depression follow-up. She admits to taking her medications as prescribed without adverse reactions. She notes that anxiety and depressive symptoms well-controlled especially during brighter and warmer weather. She has not started using nicotine patch for smoking cessation because the medication is not covered by her health plan. However, she plans on purchasing the patch when she has money. She offers no complaints and denies acute symptoms at this time. [facility] Medical History Osteopenia Nicotine dependence, cigarettes, uncomplicated Anemia Hyperlipidemia Postmenopausal Surgical History Hx of colonoscopy History of umbilical hernia repair Family History Father Prostate cancer Mother Cardiac arrest Sister Breast cancer Social History Household Members: Family Both parents involved: No Caregiver staying overnight: No Housing: House Are you a primary ocular care technician to a significant other at home: No Do you presently have visiting nurse or other home services: No 75 years or older and lives alone: No Alcohol intake: former Patient Tobacco Use Status: Current everyday Tobacco user Tobacco use type: Cigarette Cigarette Packs Per Day: 0.5 Cigarettes Per Day: 10 Years Smoked: onset 20yo, 1ppd x 47yrs, now 1/2ppd, 45pyh, Restarted 03/20/23 e-Cigarette/Vaping Use: Never Used Second Hand Smoke Exposure: No service: No Current occupational status: retired Current occupational exposures/hazards: No Cognitive needs: No Hearing needs: No Vision needs: Yes Female Reproductive History Menstrual Age of Menarche: 17 Questionnaire PHQ-9 Over the last 2 weeks, how often have you been bothered by any of the following problems? 1. Little interest or pleasure in doing things: several days 2. Feeling down, depressed, or hopeless: several days 3. Trouble falling or staying asleep, or sleeping too much: several days 4. Feeling tired or having little energy: more than half the days 5. Poor appetite or overeating: not at all 6. Feeling bad about yourself - or that you are a failure or have let yourself or your family down: several days 7. Trouble concentrating on things, such as reading the newspaper or watching television: several days 8. Moving or speaking so slowly that other people could have noticed. Or the opposite - being so fidgety or restless that you have been moving around a lot more than usual: several days 9. Thoughts that you would be better off or of hurting yourself in some way: not at all Total score: 8 Depression Screening Interpretation: Positive Depression Screening Follow-up: Existing condition and In treatment Depression Screening Done: Yes 82584 - PHQ-9 Billing: Yes Source: Developed by Drs. Hans Singh, Nancy Deshpande, Bhavesh Farah and colleagues, with an educational giancarlo from [employer] ([employer] Thrive Questionnaire Date Thrive assessed: 08/27/24 I am a: Patient What is your living situation today?: I choose not to answer this question Within the past 12 months, did the food you bought not last and you didn't have the money to get more?: I choose not to answer this question Within the past 12 months, did you worry whether your food would run out before you got money to buy more?: I choose not to answer this question Do you have trouble paying for medicines?: No Do you have trouble getting transportation to medical appointments?: No Do you have trouble paying your heating and electricity bill?: Yes Do you have trouble taking care of your child, family member or friend?: No Do you have trouble with day-to-day activities such as bathing, preparing meals, shopping, managing finances, etc.?: No Are you currently unemployed and looking for a job?: No Are you interested in more education?: No Currently or been in a relationship where the following occur: No concerns reported THRIVE Score: 1 AUDIT C Alcohol Use Questionnaire (AUDIT-C) 1. How often do you have a drink containing alcohol?: Monthly or less 2. How many drinks containing alcohol do you have on a typical day when you are drinking?: 1 or 2 3. How often do you have six or more drinks on one occasion?: Never Total Score: 1 KEITH-7 AMB Questionnaire KEITH-7 Date KEITH - 7 assessed: 09/11/24 Feeling nervous, anxious, or on edge: 1 = Several days Not being able to stop or control worryin = More than half the days Worrying too much about different things: 2 = More than half the days Trouble relaxin = Nearly every day Being so restless that it is hard to sit still: 2 = More than half the days Becoming easily annoyed or irritable: 1 = Several days Feeling afraid as if something awful might happen: 2 = More than half the days Total KEITH-7 score (0-4 normal; 5-9 mild; 10-14 moderate; 15-21 severe): 13 Source: Developed by Drs. Hans Singh, Nancy Deshpande, Bhavesh Farah and colleagues, with an educational giancarlo from [employer] ([employer] KEITH-7 Assessment Billing KEITH-7 Assessment Tool: KEITH-7 Assessment 93833 Review of Systems Const Details: Const Denies chills, Denies fatigue, Denies fever(s), Denies headache(s) and Denies weakness ENT Denies dizziness and Denies headache(s) Card Denies chest pain, Denies lightheadedness, Denies dyspnea and Denies other (Palpitations) Resp Denies cough, Denies dyspnea, Denies wheezing and Denies other ( shortness of breath) GI Denies abdominal pain, Denies melena, Denies hematochezia, Denies change in bowel habits, Denies dyspepsia and Denies nausea Denies hematuria and Denies dysuria Musc Denies abnormal gait, Denies myalgias, Denies arthralgias, Denies numbness and Denies tingling Skin/Breast Denies rash, Denies unusual bruising and Denies wounds Neuro Denies abnormal gait, Denies dizziness, Denies headache(s), Denies memory loss, Denies numbness, Denies Sensory deficit (Neuro), Denies tingling and Denies weakness Psych Denies anxiety, Denies depression, Denies memory loss Endo Denies cold intolerance, Denies fatigue, Denies heat intolerance, Denies polydipsia and Denies polyuria Aller/Immun Denies wheezing Physical exam (Primary Care) Vital Signs: Last Vital Signs Temp 98.1 F 09/11/24 13:03 Pulse 64 09/11/24 13:03 Resp 16 09/11/24 13:03 BP 130/74 09/11/24 13:03 Pulse Ox 98 09/11/24 13:03 Oxygen Delivery Method Room Air 09/11/24 13:03 BMI result Body Mass Index 29.1 Tobacco/Smoking Status: Tobacco use Status Tobacco use date assessed 09/11/24 09/11/24 13:09 Patient Tobacco Use Status Current everyday Tobacco 09/11/24 13:09 Tobacco use type Cigarette 09/11/24 13:09 e-Cigarette/Vaping Use Never Used 09/11/24 13:09 PHQ-9: PHQ-9 Score PHQ-9: Total score 8 09/11/24 13:09 Depression Screening Interpretation: Positive Depression Screening Follow-up: Existing condition and In treatment Thrive Assessment: Date of Thrive Assessment Date Thrive assessed 08/27/24 09/11/24 13:09 Currently or been in a relationship where the following occur: No concerns reported Const Other: General: no acute distress and well developed Nutritional Appearance: well nourished Orientation/consciousness: patient oriented x3 HENMT Head: Yes normocephalic and Yes atraumatic Eyes General: appearance normal, both eyes and all related structures Pupils: Equal, round and reactive pupils present EOM: EOMs intact bilaterally Resp Effort & Inspection: normal respiratory effort Auscultation: clear to auscultation bilaterally Cardio Rate: regular rate Rhythm: regular rhythm Heart sounds: S1 normal heart sound present, S2 normal heart sound present, no gallops, no murmurs and no rubs GI Palpation (GI): No Abdominal aortic bruit present, Soft to palpation, nontender, No hepatosplenomegaly present and No Rebound tenderness present Auscultation: normal bowel sounds General: Yes no CVA tenderness Back/Spine/Pelvis Back: no CVA tenderness Cervical Spine: cervical ROM normal and No Cervical spine tenderness Thoracic/Lumbar Spine: thoraco-lumbar ROM normal, No pain with thoraco-lumbar ROM, No thoracic spinal tenderness and No lumbar spinal tenderness Extrem General: Yes normal to inspection, No edema and No calf tenderness Skin General: warm and dry. Normal skin color. Normal skin turgor Neuro General: patient oriented x3, gait normal and no focal neuro deficit Cranial nerves: Yes Equal, round and reactive pupils present Cognition (Neuro): normal cognition Gait exam (Neuro): Normal gait present Sensory Exam: No Sensory deficit (Neuro) Psych Appearance: grossly normal Affect: normal affect Attitude: cooperative Thought process: Normal thought process present Coding Level of Care Code Est Pt Level 3 (55286) Diagnoses Anxiety and depression F41.9; F32.A Primary hypertension I10 Hypertension type: primary hypertension Abnormal laboratory test R89.9 Additional Codes KEITH-7 Assessment Billing - KEITH-7 Assessment Tool: KEITH-7 Assessment 88072 ([id number]) PHQ-9 - 90456 - PHQ-9 Billing: Yes ([id number]) Assessment & Plan Assessment & Plan (1) Anxiety and depression: Code(s): F41.9 - Anxiety disorder, unspecified; F32.A - Depression, unspecified Category: Medical Plan: Controlled anxiety and depressive symptoms. PHQ-9 and KEITH-7 scores revealed mild depression and moderate anxiety respectively. Continue current treatment regimen. Routine exercise encouraged. Follow-up for an extended physical exam in 1 month or return sooner with symptoms or concerns. Verbalized understanding and agreed with the plan. (2) Hypertension: Code(s): I10 - Essential (primary) hypertension Category: Medical Qualifiers: Hypertension type: primary hypertension Qualified Code(s): I10 - Essential (primary) hypertension Plan: Blood pressure is 130/74, within goal of less than 140/90. Continue current treatment regimen. Low-sodium diet encouraged. Will continue to monitor. Verbalized understanding and agreed with the plan. (3) Abnormal laboratory test: Code(s): R89.9 - Unspecified abnormal finding in specimens from other organs, systems and tissues Category: Medical Plan: Recent triglycerides and fasting glucose were elevated, 182 and 110 respectively. However, she only fasted for 4 hours. Will recheck lipid panel and fasting glucose. Advised to fast for 10-12 hours, may drink water, perform blood work before next visit. Verbalized understanding and agreed with the plan. Orders: Orders Microalbumin, Random (w Creat) Today Z00.00 - Encounter for general adult medical examination without abnormal findings Lipid Panel Today Z00.00 - Encounter for general adult medical examination without abnormal findings Glucose Fasting Today Z00.00 - Encounter for general adult medical examination without abnormal findings
[2024-09-11 13:03] VITALS: BP 130/74; PULSE 64; RESP 16; TEMP 36.7; O2SAT 98; BMI 29.1
== END 2024-09-11 13:32 | disposition home or self-care (01) ==
LOC: HO.HMCFM 12:49
PROVIDERS: PCP Nurse Practitioner Family; Visit Provider Nurse Practitioner Family
DX: F41.9 Anxiety disorder, unspecified (principal); F32.A Depression, unspecified; I10 Essential (primary) hypertension; R89.9 Unspecified abnormal finding in specimens from other organs, systems and tissues

== ENCOUNTER → 2024-09-11 12:48 | Outpatient (BNVA) | payer MEDICARE, SELFPAY | PROVIDERS: PCP Nurse Practitioner Family; Visit Provider Nurse Practitioner Family | DX: I10 Essential (primary) hypertension (principal); R89.9 Unspecified abnormal finding in specimens from other organs, systems and tissues; F41.9 Anxiety disorder, unspecified; F32.A Depression, unspecified; F17.210 Nicotine dependence, cigarettes, uncomplicated | CPT/HCPCS: 96127; 99212 ==

== ENCOUNTER 2024-10-15 12:35 | Outpatient (REF) | payer MEDICARE, SELFPAY ==
[2024-10-15 14:17] LABS: Appearance Urine Cloudy; Color Urine Yellow; Glucose Urine UA Negative (Negative); Leukocyte Esterase Urine Moderate (2+) (Negative); Nitrite Urine Positive (Negative); PH 5.5 (5.0-9.0); Specific Gravity - Urine 1.015 (1.005-1.025); UMIC TRIGGER UACC YES; Urine Blood Trace (Negative); Urine Ketones Negative (Negative); Urine Protein Trace mg/dL (Neg-Trace)
[2024-10-15 14:20] LABS: Bacteria Urine 4+ (None Seen); Hyaline Casts Urine 0-2 /LPF (0-2); RBC Urine 0-2 /HPF (0-2); Squamous Epithelial Cell Urine 0-2 /HPF (0-2); UACC Culture Trigger YES; WBC Urine >50 /HPF (0-5)
[2024-10-15 14:40] LABS: Cholesterol 149 mg/dL (<200); Glucose Fasting 134 mg/dL (60-99); HDL Cholesterol 42 mg/dL (>40); LDL Cholesterol Calculated 76 mg/dL (<100); Triglycerides 156 mg/dL (<150)
[2024-10-15 14:58] LABS: Creatinine Urine 111.89 mg/dL
== END 2024-10-15 12:36 | disposition home or self-care (01) ==
LOC: HO.WFDLDS 12:35
PROVIDERS: Visit Provider Nurse Practitioner Family
DX: Z00.00 Encounter for general adult medical examination without abnormal findings (principal); J98.11 Atelectasis; F17.200 Nicotine dependence, unspecified, uncomplicated; R82.79 Other abnormal findings on microbiological examination of urine; Z13.1 Encounter for screening for diabetes mellitus
CPT/HCPCS: 36415; 80061; 81001; 82043; 82570; 82947; 87086; 87088; 87186; 99212

== ENCOUNTER 2024-10-15 14:48 | Outpatient (AMB) | payer MEDICARE, SELFPAY ==
--- NOTE | 2024-10-15 14:52 | A.OFFVIS_ITS ---
Vital Signs 10/15/24 14:53 Height 5 ft 2 in Weight 159 lb 13.362 oz BMI 29.2 BP 108/52 L Blood Pressure Location Lt brachial Position Sitting Pulse 66 Pulse Source Pulse Oximeter Pulse Oximetry (%) 98 Oxygen Delivery Method Room Air Intake Visit Reasons: Bronchiectasis Allergies Penicillins Allergy (Mild, Verified 10/15/24 14:55) Rash HPI HPI Bronchiectasis: Details: Jannet is a pleasant 69 year old female, current 45 pack year smoker, with underlying bronchiectasis, anemia and HLD. She was initially referred by the lung cancer screening program for RADS0 finding. Chest CT 02/2024 revealed bandlike atelectasis of RLL that was not present on prior chest CT. Today she presents to review repeat chest CT. She currently denies any respiratory symptoms. She has an albuterol MDI however does not use. She denies any visits to urgent care or hospitalizations related to respiratory distress since the last visit. She continues to smoke 1/2 ppd, previously prescribed nicotine patches however not covered by insurance so never started. She is interested in nicotine lozenges. [facility] Medical History Osteopenia Nicotine dependence, cigarettes, uncomplicated Anemia Hyperlipidemia Postmenopausal Surgical History Hx of colonoscopy History of umbilical hernia repair Family History Father Prostate cancer Mother Cardiac arrest Sister Breast cancer Social History Household Members: Family Both parents involved: No Caregiver staying overnight: No Housing: House Are you a primary behavioral health care coordinator to a significant other at home: No Do you presently have visiting nurse or other home services: No 75 years or older and lives alone: No Alcohol intake: former Patient Tobacco Use Status: Current everyday Tobacco user Tobacco use type: Cigarette Cigarette Packs Per Day: 0.5 Cigarettes Per Day: 10 Years Smoked: onset 20yo, 1ppd x 47yrs, now 1/2ppd, 45pyh, Restarted 03/20/23 e-Cigarette/Vaping Use: Never Used Second Hand Smoke Exposure: No service: No Current occupational status: retired Current occupational exposures/hazards: No Cognitive needs: No Hearing needs: No Vision needs: Yes Female Reproductive History Menstrual Age of Menarche: 17 Review of Systems Const Denies chills, Denies excessive sweating, Denies fever(s), Denies headache(s) and Denies night sweats Eyes Denies dry eyes, Denies irritation and Denies itchy eyes ENT Reports Normal hearing present, Denies headache(s), Denies nasal congestion, Denies nasal discharge, Denies post nasal drip and Denies sore throat Card Denies chest pain, Denies chest pain at rest, Denies chest pain with activity, Denies claudication, Denies leg edema, Denies dyspnea, Denies dyspnea on exertion, Denies orthopnea and Denies paroxysmal nocturnal dyspnea Resp Denies chest congestion, Denies cough, Denies excessive phlegm production, Denies pain on inspiration, Denies pain with cough, Denies dyspnea, Denies dyspnea on exertion, Denies stridor and Denies wheezing Musc Denies myalgias Neuro Reports Normal hearing present and Denies headache(s) Endo Denies excessive sweating Cory/Lymph Denies lymphadenopathy Aller/Immun Denies itchy eyes, Denies seasonal rhinorrhea and Denies wheezing Physical Exam Vital Signs: Last Vital Signs Pulse 66 10/15/24 14:53 BP 108/52 L 10/15/24 14:53 Pulse Ox 98 10/15/24 14:53 Oxygen Delivery Method Room Air 10/15/24 14:53 BMI result Body Mass Index 29.2 Const General: cooperative, healthy appearing, comfortable, no acute distress, well developed and alert Orientation/consciousness: patient oriented x3 Limitations: no limitations HEENT Head: Yes normal to inspection, Yes normocephalic and Yes atraumatic Ears: hearing grossly normal bilaterally and external ears normal Eyes General: appearance normal, both eyes and all related structures Eyelids: Yes eyelids normal Sclerae: sclerae normal EOM: EOMs intact bilaterally Neck Neck: Yes normal visual inspection and Yes no lymphadenopathy Lymphatic: no lymphadenopathy noted Chest Chest palpation & inspection: normal inspection of the chest Resp Effort & Inspection: normal respiratory effort, able to speak in complete sentences, no audible wheezes, no cough, no stridor, not tachypneic, no tripod positioning and no use of accessory muscles Auscultation: clear to auscultation bilaterally Cardio Jugular venous distension: no JVD Rate: regular rate Rhythm: regular rhythm Skin Other: warm, dry General skin exam: no rashes or lesions noted Neuro General: patient oriented x3 Cranial nerves: Yes Normal hearing present Cognition (Neuro): normal cognition Gait exam (Neuro): Normal gait present Extrem General: Yes normal to inspection, Yes capillary refill normal, Yes no clubbing, cyanosis or edema and Yes no pedal edema Psych Appearance: grossly normal and well kempt Speech and movement: Normal speech and movement present and Clear speech present Affect: normal affect Attitude: cooperative Thought process: Normal thought process present Thought content: Normal thought content present Insight: Good insight present (Psych) Judgement: Good judgement present (Psych) Results Reviewed Results Reviewed: [address] [address] [address] Scan Report Signed Patient: Jannet Sheets MR#: [id number] : 1955 Acct:[id number] Age/Sex: 69 / F ADM Date: 08/24/24 Loc: .CT Attending Dr: Jocelyn Duran NP Ordering Physician: Jocelyn Duran NP Date of Service: 08/24/24 Procedure(s): CT chest wo IV con Accession Number(s): [id number] cc: Jocelyn Duran AIR ANALYSIS ENGINEERING TECHNICIAN; Susan Maria VEGETABLE FARM WORKER~ Report Number: [id number]: Total DLP = 126.00 mGy-cm EXAMINATION: CT CHEST WITHOUT IV CONTRAST INDICATION: J98.11 - Atelectasis COMPARISON: Comparison is made with the prior examination dated 03/13/2024. TECHNIQUE: Helical CT scan of the chest was performed without intravenous contrast. Coronal and sagittal reformatted images were generated and reviewed. This CT exam was performed with one or more of the following dose reduction techniques: automated exposure control, adjustment of the mA and/or kV according to patient size, use of iterative reconstruction technique. DLP: 126 mGy-cm CHEST: THYROID: The thyroid is unremarkable. LUNGS: There is a punctate calcified granuloma in the left upper lobe (series 9, image 62). The lungs are otherwise clear. The previously seen subsegmental atelectasis in the right lower lobe has resolved. MEDIASTINUM: There is no mediastinal lymphadenopathy. GO: Evaluation of the hilar regions is limited by lack of intravenous contrast material. CARDIOVASCULATURE: The heart is normal in size. There is no pericardial effusion. The thoracic aorta is normal in caliber. DEGREE OF CORONARY CALCIFICATION: mild PLEURA: There is no pleural effusion. No pneumothorax. MAIN AIRWAYS: The mainstem bronchi and proximal branches are patent. AXILLA: There is no axillary lymphadenopathy. BONES AND SOFT TISSUES: Unremarkable UPPER ABDOMEN: The visualized portions of the liver, spleen, and adrenals have an unremarkable unenhanced appearance. CT/CT chest wo IV con IMPRESSION: Unremarkable unenhanced CT of the chest. The previously seen right lower lobe subsegmental atelectasis has resolved. The patient may resume annual screening low-dose chest CT. Electronically signed by: Hans Melendez MD 08/24/2024 02:34 PM EDT RP Dictated By: Hans Melendez MD Signed By: <Electronically signed by Hans Melendez MD in OV> 08/24/24 1434 DD/ 1257 TD/TT: 08/24/24 1332 [place]: Assessment & Plan Assessment & Plan (1) Bronchiectasis: Code(s): J47.9 - Bronchiectasis, uncomplicated Category: Medical (2) Nicotine dependence, cigarettes, uncomplicated: Comment: (current smoker - onset 20yo, 1ppd x 47yrs, now 1/2ppd, 45pyh) Code(s): F17.210 - Nicotine dependence, cigarettes, uncomplicated Category: Medical Plan Reviewed chest CT which revealed resolution of right lower lobe subsegmental atelectasis. Will continue with annual LDCT. Smoking cessation reviewed and patient agreeable to trial nicotine lozenges PRN. At this time, she denies any respiratory symptoms and is aware to call office if symptoms develop. All questions were answered and patient is in agreement of plan. Will follow up in 6 -12 months or sooner if needed. Orders: Orders CT lung screening 10 Months F17.210 - Nicotine dependence, cigarettes, uncomplicated Medications: New nicotine (polacrilex) 2 mg buccal Q8H PRN 108 ea 0RF nicotine cravings Discontinued nicotine Discontinued Reason: Patient no longer taking 1 patch transdermal Q24H 14 ea 0RF nicotine Discontinued Reason: Patient no longer taking 1 patch transdermal DAILY 28 ea 0RF Coding Level of Care Code Est Pt Level 4 (26386) Diagnoses Bronchiectasis J47.9 Nicotine dependence, cigarettes, uncomplicated F17.210
[2024-10-15 14:53] VITALS: BP 108/52; PULSE 66; O2SAT 98; BMI 29.2
== END 2024-10-15 15:19 | disposition home or self-care (01) ==
LOC: HO.HPS 14:49
PROVIDERS: PCP Nurse Practitioner Family; Visit Provider Nurse Practitioner Family
DX: J47.9 Bronchiectasis, uncomplicated (principal); F17.210 Nicotine dependence, cigarettes, uncomplicated
CPT/HCPCS: 99214

== ENCOUNTER 2024-10-16 13:02 | Outpatient (AMB) | payer MEDICARE, SELFPAY ==
--- NOTE | 2024-10-16 13:05 | MHC.PC.OV ---
Vital Signs 10/16/24 13:12 Height 5 ft 2 in Weight 159 lb 6 oz BMI 29.1 BP 135/72 Blood Pressure Location Lt brachial Position Sitting Respiration 16 Pulse 89 Pulse Source Pulse Oximeter Temp 98.4 F Temp Source Oral Pulse Oximetry (%) 98 Oxygen Delivery Method Room Air Intake Visit Reasons: 1 mos CPE Intake Note: patient here for CPE she would like to get back on Gabapantin Sample Checker Required: No Is last menstrual period known: No Post menopausal: No Patient : No Allergies Penicillins Allergy (Mild, Verified 10/16/24 13:37) Rash Medication List - Last Reconciled 10/16/24 by Susan Maria CNP amlodipine 10 mg PO DAILY 90 days atorvastatin 20 mg PO BEDTIME buspirone 10 mg PO BID 30 days cholecalciferol (vitamin D3) 50 mcg PO DAILY 90 days escitalopram oxalate 10 mg PO DAILY metoprolol tartrate 12.5 mg (1/2 x 25 mg) PO DAILY 30 days naproxen 500 mg PO BID PRN 30 days nicotine (polacrilex) 2 mg buccal Q8H PRN Tobacco use date assessed: 10/16/24 Fall risk assessment: No Falls in past year Last assessed Fall Risk: 10/16/24 Dental Screening Dental Screen Date: 10/16/24 Did you have a dental visit in the last 12 months?: Yes Did you have a dental problem in the last 6 months where you did not have access to dental care?: No Was dental information given to patient?: Patient has dentist HPI HPI Comments History of Present Illness Details 69-year-old female presents for an extended physical exam. She admits to taking her medications as prescribed without adverse reactions. Acute issue(s) - Reports intermittent punching pain to her hands and feet. She notes occasional as tingling and numbness. Her symptoms respond well to an old script to of Gabapentin. - Reports intermittent blurry vision and clear discharge of the right eye for the past 1 month. Past Medical History - Hypertension, anemia, nicotine dependence, osteopenia, anxiety, depression Social History - Smokes half a pack daily, plans pickle sorter nicotine lozenges recently prescribed by pulmonology. Does not vape. Does not drink alcohol. Denies recreational drug use - Has been making healthy dietary choices. Exercises routinely. Generally sleep well Health maintenance - Last eye exam was a year ago at [facility]. Referred to Ophthalmology for routine eye exam - Last dental visit was over over a year ago; encouraged to schedule an appointment with his dentist for routine dental care. - Last tetanus vaccine was more than 10 years ago; received Tdap vaccine today - She notes that she got the recent flu vaccine - She is vaccinated for pneumonia - She has not been vaccinated for shingles; encouraged to get vaccinated from the local pharmacy - Last pap smear test was in 05/2023: Normal - Last mammogram was in 12/03/2022: Negative. Mammogram ordered - Last colonoscopy was in 09/21/2023: Normal - Last dexa scan was in 12/09/2022: Osteopenia. She has a f/u dexa scan in 11/2024 - Last LDCT was in 03/13/2024: Benign. 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 [facility] Medical History Osteopenia Nicotine dependence, cigarettes, uncomplicated Anemia Hyperlipidemia Postmenopausal Surgical History Hx of colonoscopy History of umbilical hernia repair Family History Father Prostate cancer Mother Cardiac arrest Sister Breast cancer Social History Household Members: Family Both parents involved: No Caregiver staying overnight: No Housing: House Are you a primary healthcare insurance sales agent to a significant other at home: No Do you presently have visiting nurse or other home services: No 75 years or older and lives alone: No Alcohol intake: former Patient Tobacco Use Status: Current everyday Tobacco user Tobacco use type: Cigarette Cigarette Packs Per Day: 0.5 Cigarettes Per Day: 10 Years Smoked: onset 20yo, 1ppd x 47yrs, now 1/2ppd, 45pyh, Restarted 03/20/23 e-Cigarette/Vaping Use: Never Used Second Hand Smoke Exposure: No service: No Current occupational status: retired Current occupational exposures/hazards: No Cognitive needs: No Hearing needs: No Vision needs: Yes Female Reproductive History Menstrual Age of Menarche: 17 Questionnaire PHQ-9 Over the last 2 weeks, how often have you been bothered by any of the following problems? 1. Little interest or pleasure in doing things: several days 2. Feeling down, depressed, or hopeless: several days 3. Trouble falling or staying asleep, or sleeping too much: several days 4. Feeling tired or having little energy: more than half the days 5. Poor appetite or overeating: more than half the days 6. Feeling bad about yourself - or that you are a failure or have let yourself or your family down: more than half the days 7. Trouble concentrating on things, such as reading the newspaper or watching television: several days 8. Moving or speaking so slowly that other people could have noticed. Or the opposite - being so fidgety or restless that you have been moving around a lot more than usual: more than half the days 9. Thoughts that you would be better off or of hurting yourself in some way: not at all Total score: 12 Depression Screening Interpretation: Positive Depression Screening Follow-up: Existing condition and In treatment Depression Screening Done: Yes 16301 - PHQ-9 Billing: Yes Source: Developed by Drs. Hans Singh, Nancy Deshpande, Bhavesh Farah and colleagues, with an educational giancarlo from [employer]. Thrive Questionnaire Date Thrive assessed: 10/16/24 I am a: Patient What is your living situation today?: I choose not to answer this question Within the past 12 months, did the food you bought not last and you didn't have the money to get more?: I choose not to answer this question Within the past 12 months, did you worry whether your food would run out before you got money to buy more?: I choose not to answer this question Do you have trouble paying for medicines?: No Do you have trouble getting transportation to medical appointments?: No Do you have trouble paying your heating and electricity bill?: Yes Do you have trouble taking care of your child, family member or friend?: No Do you have trouble with day-to-day activities such as bathing, preparing meals, shopping, managing finances, etc.?: No Are you currently unemployed and looking for a job?: No Are you interested in more education?: No Currently or been in a relationship where the following occur: No concerns reported THRIVE Score: 1 AUDIT C Alcohol Use Questionnaire (AUDIT-C) 1. How often do you have a drink containing alcohol?: Never 3. How often do you have six or more drinks on one occasion?: Never Total Score: 0 Score Reviewed/Action Taken: Yes KEITH-7 AMB Questionnaire KEITH-7 Date KEITH - 7 assessed: 10/16/24 Feeling nervous, anxious, or on edge: 1 = Several days Not being able to stop or control worryin = More than half the days Worrying too much about different things: 1 = Several days Trouble relaxin = Several days Being so restless that it is hard to sit still: 1 = Several days Becoming easily annoyed or irritable: 1 = Several days Feeling afraid as if something awful might happen: 1 = Several days Total KEITH-7 score (0-4 normal; 5-9 mild; 10-14 moderate; 15-21 severe): 8 Source: Developed by Drs. Hans Singh, Nancy Deshpande, Bhavesh Farah and colleagues, with an educational giancarlo from [employer]. KEITH-7 Assessment Billing KEITH-7 Assessment Tool: KEITH-7 Assessment 11459 Review of Systems Const Details: Denies chills, Denies fatigue, Denies fever(s), Denies headache(s) and Denies weakness HEENT Reports intermittent blurry vision of right eye, Denies dizziness, Denies headache(s), Denies hearing loss, Denies nasal congestion, Denies sinus pain, Denies sinus pressure and Denies sore throat Card Denies chest pain, Denies lightheadedness, Denies dyspnea and Denies other (palpitations) Resp Denies cough, Denies dyspnea and Denies wheezing GI Denies abdominal pain, Denies melena, Denies hematochezia, Denies change in bowel habits, Denies dyspepsia and Denies nausea Denies hematuria and Denies dysuria Musc Reports intermittent pain to hands and feet, Denies abnormal gait, Denies myalgias, Denies arthralgias, Denies numbness and Denies tingling Skin/Breast Denies rash, Denies unusual bruising and Denies wounds Neuro Denies abnormal gait, Denies dizziness, Denies headache(s), Denies memory loss, Denies numbness, Denies Sensory deficit (Neuro), Denies tingling and Denies weakness Psych Denies anxiety, Denies depression and Denies memory loss Endo Denies cold intolerance, Denies fatigue, Denies heat intolerance, Denies polydipsia and Denies polyuria Cory/Lymph Denies easy bleeding and Denies easy bruising Aller/Immun Denies wheezing Physical exam (Primary Care) Vital Signs: Last Vital Signs Temp 98.4 F 10/16/24 13:12 Pulse 89 10/16/24 13:12 Resp 16 10/16/24 13:12 BP 135/72 10/16/24 13:12 Pulse Ox 98 10/16/24 13:12 Oxygen Delivery Method Room Air 10/16/24 13:12 BMI result Body Mass Index 29.1 Tobacco/Smoking Status: Tobacco use Status Tobacco use date assessed 10/16/24 10/16/24 13:16 Patient Tobacco Use Status Current everyday Tobacco 10/16/24 13:08 Tobacco use type Cigarette 10/16/24 13:08 e-Cigarette/Vaping Use Never Used 10/16/24 13:08 PHQ-9: PHQ-9 Score PHQ-9: Total score 12 10/16/24 14:02 Depression Screening Interpretation: Positive Depression Screening Follow-up: Existing condition and In treatment Thrive Assessment: Date of Thrive Assessment Date Thrive assessed 10/16/24 10/16/24 13:08 Currently or been in a relationship where the following occur: No concerns reported Const Other: General: no acute distress, well developed, alert and awake Nutritional Appearance: well nourished Orientation/consciousness: patient oriented x3 HENMT Head: Yes normocephalic and Yes atraumatic Ears: hearing grossly normal bilaterally and TM's normal bilaterally General nose exam: Normal external nose present and Normal nares present Mouth: Normal oral and palatal mucosa present and moist mucous membranes Teeth and gingiva: dentition normal Throat: Yes oropharynx normal Eyes Pupils: Equal, round and reactive pupils present and Pupil accommodation reflex normal EOM: EOMs intact bilaterally Neck Neck: Yes normal visual inspection, Yes no lymphadenopathy and Yes trachea midline Thyroid: Thyroid normal Carotids: no bruits Lymphatic: no lymphadenopathy noted Chest Chest palpation & inspection: normal inspection of the chest Resp Effort & Inspection: normal respiratory effort Auscultation: clear to auscultation bilaterally Cardio Rate: regular rate Rhythm: regular rhythm Heart sounds: S1 normal heart sound present, S2 normal heart sound present, no gallops, no murmurs and no rubs Bruits: no abdominal aortic bruits and no carotid bruits GI Palpation (GI): No Abdominal aortic bruit present, Soft to palpation, nontender, No hepatosplenomegaly present and No Rebound tenderness present Auscultation: normal bowel sounds General: Yes no CVA tenderness Back/Spine/Pelvis Back: no CVA tenderness Cervical Spine: cervical ROM normal and No Cervical spine tenderness Thoracic/Lumbar Spine: thoraco-lumbar ROM normal, No pain with thoraco-lumbar ROM, No thoracic spinal tenderness and No lumbar spinal tenderness Skin General: warm and dry. Normal skin color. Normal skin turgor Lesions: no lesions Rashes: no rashes Trauma: no lacerations or abrasions Wounds: no wounds Nails: normal Neuro General: patient oriented x3, gait normal and CN's II-XI intact bilaterally Cranial nerves: Yes Equal, round and reactive pupils present Cognition (Neuro): normal cognition Gait exam (Neuro): Normal gait present Motor exam (neuro): 5/5 motor strength present throughout Sensory Exam: No Sensory deficit (Neuro) Deep tendon reflexes (DTR's): Right patellar reflex intensity grade: 2+ and Left patellar reflex intensity grade: 2+ Extrem General: Yes normal to inspection, No edema and No calf tenderness Psych Appearance: grossly normal Affect: normal affect Attitude: cooperative Thought process: Normal thought process present Office Procedures Vision Screening Right Eye: 20/25 Left Eye: 20/25 Bilateral: 20/20 Color: Pass 99271 - Vision Screening Results AMB Hemoglobin A1c AMB Hemoglobin A1c 6.7 % Last Edit by Meg Tenorio MA on 10/16/24 14:06 Immunizations Boostrix Tdap 2.5 Lf unit-8 mcg-5 Lf/0.5 mL intramuscular syringe Performing Provider: Susan Maria CNP Performing Location: [facility] Administered by: Iva Wilcox RN on 10/16/24 14:03 Dose Route Admin Location Dispensed Lot Number Expiration Date NDC Senior Analytic Consultant 0.5 mL IM Left Deltoid 0.5 mL [id number] 01/11/27 [id number] [employer] VIS Given Date VIS Provided VIS Publication Date 10/16/24 Single Vaccine 20 Eligibility Eligibility Date Funding Source Not [facility] Eligible 10/16/24 Private Results Reviewed Results Reviewed: Laboratory Last Values Hgb A1c (Clinic) 6.7 % (4.0-6.0) H 10/16/24 13:35 Coding Level of Care Code Est Pt Level 5 (16511) Est Pt Prev Care >65y(55479) Diagnoses Primary hypertension I10 Hypertension type: primary hypertension Anxiety and depression F41.9; F32.A Blurry vision, right eye H53.8 Eye exam, routine Z01.00 Type 2 diabetes mellitus E11.9 Hand and foot pain M79.643; M79.673 Microalbuminuria R80.9 Hyperlipidemia E78.5 Nicotine dependence, cigarettes, uncomplicated F17.210 Breast cancer screening by mammogram Z12.31 Screening for lung cancer Z12.2 CPT Codes Vision Screening - Vision Screenin - Vision Screening ([id number]) Additional Codes KEITH-7 Assessment Billing - KEITH-7 Assessment Tool: KEITH-7 Assessment 67367 ([id number]) PHQ-9 - 54183 - PHQ-9 Billing: Yes ([id number]) Assessment & Plan Assessment & Plan (1) Hypertension: Code(s): I10 - Essential (primary) hypertension Category: Medical Qualifiers: Hypertension type: primary hypertension Qualified Code(s): I10 - Essential (primary) hypertension Plan: Blood pressure is 135/72, within goal of less than 140/90. Continue current treatment regimen. Healthy diet and routine exercise encouraged. Perform fasting blood work and follow-up in 3 months for hyperlipidemia, hypertension, diabetes, microalbuminuria, anxiety, depression. Return sooner with symptoms or concerns. Verbalized understanding and agreed with the treatment plan. (2) Anxiety and depression: Code(s): F41.9 - Anxiety disorder, unspecified; F32.A - Depression, unspecified Category: Medical Plan: Reports controlled anxiety and depressive symptoms. PHQ-9 and KEITH-7 scores revealed moderate depression and mild anxiety respectively. Continue current treatment regimen. Routine exercise encouraged. Follow-up in 3 months. Verbalized understanding and agreed with the plan. (3) Blurry vision, right eye: Code(s): H53.8 - Other visual disturbances Category: Medical Plan: Reports intermittent blurry vision and clear discharge of the right eye for the past 1 month. Pupil Equal, round and reactive pupils present and Pupil accommodation reflex normal. EOMs intact bilaterally. Visual acuity revealed 20/25 right and left eye, and 20/20 both eyes. Referred to Ophthalmology. Follow-up with worsening or new symptoms. Verbalized understanding and agreed with the plan. (4) Eye exam, routine: Code(s): Z01.00 - Encounter for examination of eyes and vision without abnormal findings Category: Medical Plan: Plan as above. (5) Type 2 diabetes mellitus: Code(s): E11.9 - Type 2 diabetes mellitus without complications Category: Medical Plan: Recent fasting glucose is elevated, 134. Previous level was 110. A1c today 6.7%, within goal of less than 7.0%. She does not want to start medication treatment at this time and will continue to improve her diet. ADA diet and routine exercise encouraged. Will recheck A1c in 3 months. Verbalized understanding and agreed with the plan. (6) Hand and foot pain: Code(s): M79.643 - Pain in unspecified hand; M79.673 - Pain in unspecified foot Category: Medical Plan: Reports intermittent punching pain to her hands and feet. Reports occasional tingling and numbness. Her symptoms respond well to an old script of Gabapentin. No acute symptoms at this time. 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 Gabapentin 300 mg as needed at bedtime ordered; advised to take as prescribed. Instructed on the risks, benefits, and potential adverse reactions of the medication. Follow-up with worsening or new symptoms. Verbalized understanding and agreed with the treatment plan. (7) Microalbuminuria: Code(s): R80.9 - Proteinuria, unspecified Category: Medical Plan: Recent urine microalbumin/creatinine ratio is slightly elevated, 42.0. BUN/creatinine is normal. Likely dehydration. Adequate hydration encouraged. Will recheck urine microalbumin/creatinine ratio and make changes as needed. Verbalized understanding and agreed with the plan. (8) Hyperlipidemia: Code(s): E78.5 - Hyperlipidemia, unspecified Category: Medical Plan: Recent triglyceride level is slightly elevated, 156, previous level was 182. Total cholesterol, LDL, and HDL levels are normal. Continue to take atorvastatin 20 mg daily. Advised to limit foods high in saturated fat and avoid foods high in trans fat. Routine exercise encouraged. Fast for 10-12 hours, may drink water, before lipid panel blood work 2-3 days before next visit. Follow-up in 3 months. Verbalized understanding and agreed with treatment plan. (9) Nicotine dependence, cigarettes, uncomplicated: Comment: (current smoker - onset 20yo, 1ppd x 47yrs, now 1/2ppd, 45pyh) Code(s): F17.210 - Nicotine dependence, cigarettes, uncomplicated Category: Medical Plan: She smokes half a pack daily. She plans pickle sorter nicotine lozenges recently prescribed by pulmonology. Instructed on the health risks and complications of smoking and cessation encouraged. Continue current treatment regimen. Follow-up as needed. Verbalized understanding and agreed with the plan. (10) Breast cancer screening by mammogram: Code(s): Z12.31 - Encounter for screening mammogram for malignant neoplasm of breast Category: Medical Plan: Last mammogram was in 12/03/2022: Negative. Mammogram ordered. (11) Screening for lung cancer: Code(s): Z12.2 - Encounter for screening for malignant neoplasm of respiratory organs Category: Medical Plan: Last LDCT was in 03/13/2024: Benign. Last chest CT was in 08/24/2024: Benign Followed by pulmonology. Plan Total time for this visit was 75 minutes, 55 minutes with patient, including physical and acute assessment, 20 minutes reviewing, coordinating plan of care, and documenting. Orders: Orders AMB Vision Screening 10/16/24 R73.01 - Impaired fasting glucose, R80.9 - Proteinuria, unspecified, Z01.00 - Encounter for examination of eyes and vision without abnormal findings AMB Hemoglobin A1c 10/16/24 Z13.9 - Encounter for screening, unspecified MM screening mammo BI 10/16/24 Z12.31 - Encounter for screening mammogram for malignant neoplasm of breast TDaP Immunization 10/16/24 Z23 - Encounter for immunization Lipid Panel 3 Months E78.5 - Hyperlipidemia, unspecified Microalbumin, Random (w Creat) 3 Months R80.9 - Proteinuria, unspecified Referrals Ophthalmology Referral H53.8 - Other visual disturbances, Z01.00 - Encounter for examination of eyes and vision without abnormal findings Medications: New gabapentin 300 mg PO BEDTIME PRN 30 caps 0RF pain Patient Instructions: No significant functional limitation noted. Continue current treatment regimen. Healthy diet and routine exercise encouraged. Verbalized understanding and agreed with the treatment plan.
[2024-10-16 13:12] VITALS: BP 135/72; PULSE 89; RESP 16; TEMP 36.9; O2SAT 98; BMI 29.1
== END 2024-10-16 14:33 | disposition home or self-care (01) ==
LOC: HO.HMCFM 13:03
PROVIDERS: PCP Nurse Practitioner Family; Visit Provider Nurse Practitioner Family
DX: Z23 Encounter for immunization (principal); E11.9 Type 2 diabetes mellitus without complications; Z01.00 Encounter for examination of eyes and vision without abnormal findings

== ENCOUNTER → 2024-10-16 13:02 | Outpatient (BNVA) | payer MEDICARE, SELFPAY | PROVIDERS: PCP Nurse Practitioner Family; Visit Provider Nurse Practitioner Family | DX: Z00.00 Encounter for general adult medical examination without abnormal findings (principal); R20.0 Anesthesia of skin; M79.642 Pain in left hand; M79.641 Pain in right hand; M79.672 Pain in left foot; M79.671 Pain in right foot; I10 Essential (primary) hypertension; F41.9 Anxiety disorder, unspecified; F32.A Depression, unspecified; H53.8 Other visual disturbances; E11.9 Type 2 diabetes mellitus without complications; M79.643 Pain in unspecified hand; M79.673 Pain in unspecified foot; R80.9 Proteinuria, unspecified; E78.5 Hyperlipidemia, unspecified; F17.210 Nicotine dependence, cigarettes, uncomplicated; Z23 Encounter for immunization | CPT/HCPCS: 83036; 90471; 90715; 96127; 99212; 99397 ==

== ENCOUNTER 2024-12-04 09:38 | Outpatient (REF) | payer MEDICARE, SELFPAY ==
--- NOTE | ~2024-12-04 | MM_ITS ---
EXAMINATION: DXA BONE DENSITY AXIAL HISTORY: Z78.0 - Asymptomatic menopausal state TECHNIQUE: ActiveO Dual energy absorptiometry (DEXA) of the lumbar spine, total left hip, and femoral neck was performed. COMPARISON: Comparison is made with the prior examination dated 12/03/2022. FINDINGS: The bone mineral density of the lumbar spine is 1.036 g/cm2, corresponding to a T-score of -1.2, and a Z-score of 0.3. This is indicative of osteopenia. This represents a BMD change of -3.9% compared to the prior exam. This is statistically significant. The bone mineral density of the left total hip is 0.912 g/cm2, corresponding to a T-score of -0.8, and a Z-score of 0.5. This is indicative of normal bone mineral density. This represents a BMD change of -1.0% compared to the prior exam. This is not statistically significant. The bone mineral density of the left femoral neck is 0.821 g/cm2, corresponding to a T-score of -1.6, and a Z-score of 0.0. This is indicative of osteopenia. This represents a BMD change of -3.3% compared to the prior exam. FRACTURE RISK: The FRAX index suggests a ten year probability of major osteoporotic fracture of 5.6%, and of hip fracture 1.2%. MM/XR DEXA axial skeleton IMPRESSION: Based on bone mineral density, and according to World Health Organization (WHO) criteria, the diagnosis is consistent with osteopenia. Statistically, 68% of repeat scans fall within 1 SD (+/- 0.010 g/cm2 for AP spine L1-L4) and 1 SD (+/- 0.012 g/cm2 for femur total) FRAX is a trademark of the [employer] [place] [facility], a World Health Organization (WHO) Collaborating Center. Electronically signed by: Hans Melendez MD 12/04/2024 10:29 AM EDT
== END 2024-12-04 09:39 | disposition home or self-care (01) ==
LOC: HO.MAMMO 09:38
PROVIDERS: PCP Nurse Practitioner Family; Visit Provider Obstetrics & Gynecology
DX: Z13.820 Encounter for screening for osteoporosis (principal); Z78.0 Asymptomatic menopausal state
CPT/HCPCS: 77080

== ENCOUNTER → 2024-12-04 10:00 | Outpatient (BNV) | payer MEDICARE, SELFPAY | PROVIDERS: PCP Nurse Practitioner Family; Visit Provider Radiology Diagnostic Radiology | DX: E28.39 Other primary ovarian failure (principal) | CPT/HCPCS: 77080 ==

== ENCOUNTER 2025-02-05 11:46 | Outpatient (AMB) | payer MEDICARE, SELFPAY ==
--- NOTE | 2025-02-05 11:58 | A.OFFVIS_ITS ---
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 This is indicative of osteopenia. This represents a BMD change of -3.9% compared to the prior exam. This is statistically significant. The bone mineral density of the left total hip is 0.912 g/cm2, corresponding to a T-score of -0.8, and a Z-score of 0.5. This is indicative of normal bone mineral density. This represents a BMD change of -1.0% compared to the prior exam. This is not statistically significant. The bone mineral density of the left femoral neck is 0.821 g/cm2, corresponding to a T-score of -1.6, and a Z-score of 0.0. This is indicative of osteopenia. This represents a BMD change of -3.3% compared to the prior exam. FRACTURE RISK: The FRAX index suggests a ten year probability of major osteoporotic fracture of 5.6%, and of hip fracture 1.2%. [facility] Medical History (Updated 02/05/25 @ 12:19 by Benjamin Alves MD) Osteopenia Nicotine dependence, cigarettes, uncomplicated Anemia Hyperlipidemia Postmenopausal Surgical History Hx of colonoscopy History of umbilical hernia repair Family History Father Prostate cancer Mother Cardiac arrest Sister Breast cancer Social History Household Members: Family Both parents involved: No Caregiver staying overnight: No Housing: House Are you a primary manager intensive care to a significant other at home: No Do you presently have visiting nurse or other home services: No 75 years or older and lives alone: No Alcohol intake: former Patient Tobacco Use Status: Current everyday Tobacco user Tobacco use type: Cigarette Cigarette Packs Per Day: 0.5 Cigarettes Per Day: 10 Years Smoked: onset 20yo, 1ppd x 47yrs, now 1/2ppd, 45pyh, Restarted 03/20/23 e-Cigarette/Vaping Use: Never Used Second Hand Smoke Exposure: No service: No Current occupational status: retired Current occupational exposures/hazards: No Cognitive needs: No Hearing needs: No Vision needs: Yes Female Reproductive History Menstrual Age of Menarche: 17 Review of Systems Const All systems reviewed & are unremarkable except as noted in HPI and below Reports as per HPI and Reports no additional complaints GI Reports no additional complaints Reports no additional complaints Physical Exam Vital Signs: BMI result Body Mass Index 29.1 Assessment & Plan Assessment & Plan (1) Osteopenia: Code(s): M85.80 - Other specified disorders of bone density and structure, unspecified site Category: Medical Plan: Discussed with the patient the DEXA results and FRAX risk. FRAX risk and T score showed no evidence of osteoporosis. Discussed with the patient all the options for osteoporosis prevention including lifestyle modifications including Ca+D supplements 1200 mg po qd/800 MIU, Weight bearing exercises and proteine supplements. The patient verbalized understanding and agreed plan will repeat DEXA in 2 years. Coding Level of Care Code Est Pt Level 3 (49674) Diagnoses Osteopenia M85.80
[2025-02-05 12:13] VITALS: BMI 29.1
== END 2025-02-05 12:39 | disposition home or self-care (01) ==
LOC: HO.HWS 11:46
PROVIDERS: PCP Nurse Practitioner Family; Visit Provider Obstetrics & Gynecology
DX: M85.80 Other specified disorders of bone density and structure, unspecified site (principal)
CPT/HCPCS: 99213

== ENCOUNTER → 2025-02-05 11:46 | Outpatient (BNVA) | payer MEDICARE, SELFPAY | PROVIDERS: PCP Nurse Practitioner Family; Visit Provider Obstetrics & Gynecology | DX: M85.80 Other specified disorders of bone density and structure, unspecified site (principal) | CPT/HCPCS: 99212 ==

== ENCOUNTER 2025-02-11 14:43 | Outpatient (REF) | payer MEDICARE, SELFPAY | END 2025-02-11 14:44 | disposition home or self-care (01) | LOC: HO.MAMMO 14:43 | PROVIDERS: PCP Nurse Practitioner Family; Visit Provider Nurse Practitioner Family | DX: Z12.31 Encounter for screening mammogram for malignant neoplasm of breast (principal) | CPT/HCPCS: 77063; 77067 ==

== ENCOUNTER → 2025-02-11 14:45 | Outpatient (BNV) | payer MEDICARE, SELFPAY | PROVIDERS: PCP Nurse Practitioner Family; Visit Provider Internal Medicine | DX: Z12.31 Encounter for screening mammogram for malignant neoplasm of breast (principal) | CPT/HCPCS: 77063; 77067 ==

== ENCOUNTER 2025-02-15 12:41 | Outpatient (AMB) | payer MEDICARE, SELFPAY ==
--- NOTE | 2025-02-15 12:50 | A.OFFPC_ITS ---
Vital Signs 02/15/25 12:57 02/15/25 13:11 Height 5 ft 2 in Weight 156 lb 4 oz BMI 28.6 BP 135/65 120/60 Blood Pressure Location Lt brachial Lt brachial Position Sitting Sitting Respiration 16 Pulse 65 Pulse Source Pulse Oximeter Temp 97.8 F Temp Source Oral Pulse Oximetry (%) 96 Oxygen Delivery Method Room Air Intake Visit Reasons: HTN, DM, HLD, microalbuminuria, anxiety, dep, resc Intake Note: patient here for follow up on HTN, DM, HLD, microalbuminuria, anxiety depression Feed Manager Required: No Is last menstrual period known: No Post menopausal: No Patient : No Allergies Penicillins Allergy (Mild, Verified 02/15/25 12:56) Rash Tobacco use date assessed: 02/15/25 Fall risk assessment: No Falls in past year Last assessed Fall Risk: 02/15/25 Dental Screening Dental Screen Date: 02/15/25 Did you have a dental visit in the last 12 months?: No Did you have a dental problem in the last 6 months where you did not have access to dental care?: No Was dental information given to patient?: Patient has dentist HPI HPI Comments History of Present Illness Details 69-year-old female presents for hyperten kelly, diabetes, hyperlipidemia, microalbuminuria, anxiety, and depression follow-up. She admits to taking her medications as prescribed without adverse reactions. She stop taking gabapentin due to weight gain on the medication. She notes that she makes healthy lifestyle choices. She reports controlled anxiety and depressive symptoms. She offers no complaints and denies acute symptoms at this time. She did not do lab work as planned for this visit. [facility] Medical History (Updated 02/05/25 @ 12:19 by Benjamin Alves MD) Osteopenia Nicotine dependence, cigarettes, uncomplicated Anemia Hyperlipidemia Postmenopausal Surgical History Hx of colonoscopy History of umbilical hernia repair Family History Father Prostate cancer Mother Cardiac arrest Sister Breast cancer Social History Household Members: Family Both parents involved: No Caregiver staying overnight: No Housing: House Are you a primary career information specialist to a significant other at home: No Do you presently have visiting nurse or other home services: No 75 years or older and lives alone: No Alcohol intake: former Patient Tobacco Use Status: Current everyday Tobacco user Tobacco use type: Cigarette Cigarette Packs Per Day: 0.5 Cigarettes Per Day: 10 Years Smoked: onset 20yo, 1ppd x 47yrs, now 1/2ppd, 45pyh, Restarted 03/20/23 e-Cigarette/Vaping Use: Never Used Second Hand Smoke Exposure: No service: No Current occupational status: retired Current occupational exposures/hazards: No Cognitive needs: No Hearing needs: No Vision needs: Yes Female Reproductive History Menstrual Age of Menarche: 17 Questionnaire PHQ-9 Over the last 2 weeks, how often have you been bothered by any of the following problems? 1. Little interest or pleasure in doing things: several days 2. Feeling down, depressed, or hopeless: several days 3. Trouble falling or staying asleep, or sleeping too much: several days 4. Feeling tired or having little energy: several days 5. Poor appetite or overeating: not at all 6. Feeling bad about yourself - or that you are a failure or have let yourself or your family down: several days 7. Trouble concentrating on things, such as reading the newspaper or watching television: several days 8. Moving or speaking so slowly that other people could have noticed. Or the opposite - being so fidgety or restless that you have been moving around a lot more than usual: not at all 9. Thoughts that you would be better off or of hurting yourself in some way: not at all Total score: 6 Depression Screening Interpretation: Positive Depression Screening Follow-up: Existing condition and In treatment Depression Screening Done: Yes 61855 - PHQ-9 Billing: Yes Source: Developed by Drs. Hans Singh, Nancy Deshpande, Bhavesh Farah and colleagues, with an educational giancarlo from [employer]. Thrive Questionnaire Date Thrive assessed: 08/27/24 I am a: Patient What is your living situation today?: I choose not to answer this question Within the past 12 months, did the food you bought not last and you didn't have the money to get more?: I choose not to answer this question Within the past 12 months, did you worry whether your food would run out before you got money to buy more?: I choose not to answer this question Do you have trouble paying for medicines?: No Do you have trouble getting transportation to medical appointments?: No Do you have trouble paying your heating and electricity bill?: Yes Do you have trouble taking care of your child, family member or friend?: No Do you have trouble with day-to-day activities such as bathing, preparing meals, shopping, managing finances, etc.?: No Are you currently unemployed and looking for a job?: No Are you interested in more education?: No Currently or been in a relationship where the following occur: No concerns reported THRIVE Score: 1 KEITH-7 AMB Questionnaire KEITH-7 Date KEITH - 7 assessed: 02/15/25 Feeling nervous, anxious, or on edge: 1 = Several days Not being able to stop or control worryin = Several days Worrying too much about different things: 1 = Several days Trouble relaxin = Several days Being so restless that it is hard to sit still: 1 = Several days Becoming easily annoyed or irritable: 0 = Not at all Feeling afraid as if something awful might happen: 1 = Several days Total KEITH-7 score (0-4 normal; 5-9 mild; 10-14 moderate; 15-21 severe): 6 Source: Developed by Drs. Hans Singh, Nancy Deshpande, Bhavesh Farah and colleagues, with an educational giancarlo from [employer]. KEITH-7 Assessment Billing KEITH-7 Assessment Tool: KEITH-7 Assessment 65320 Review of Systems Const Details: Const Denies chills, Denies fatigue, Denies fever(s), Denies headache(s) and Denies weakness ENT Denies dizziness and Denies headache(s) Card Denies chest pain, Denies lightheadedness, Denies dyspnea and Denies other (Palpitations) Resp Denies cough, Denies dyspnea, Denies wheezing and Denies other ( shortness of breath) GI Denies abdominal pain, Denies melena, Denies hematochezia, Denies change in bowel habits, Denies dyspepsia and Denies nausea Denies hematuria and Denies dysuria Musc Denies abnormal gait, Denies myalgias, Denies arthralgias, Denies numbness and Denies tingling Skin/Breast Denies rash, Denies unusual bruising and Denies wounds Neuro Denies abnormal gait, Denies dizziness, Denies headache(s), Denies memory loss, Denies numbness, Denies Sensory deficit (Neuro), Denies tingling and Denies weakness Psych Denies anxiety, Denies depression, Denies memory loss Endo Denies cold intolerance, Denies fatigue, Denies heat intolerance, Denies polydipsia and Denies polyuria Aller/Immun Denies wheezing Physical exam (Primary Care) Tobacco/Smoking Status: Tobacco use Status Tobacco use date assessed 10/16/24 02/15/25 12:51 Patient Tobacco Use Status Current everyday Tobacco 02/15/25 12:51 Tobacco use type Cigarette 02/15/25 12:51 e-Cigarette/Vaping Use Never Used 02/15/25 12:51 Depression Screening Interpretation: Positive Depression Screening Follow-up: Existing condition and In treatment Thrive Assessment: Date of Thrive Assessment Date Thrive assessed 08/27/24 02/15/25 12:51 Currently or been in a relationship where the following occur: No concerns reported Const Other: General: no acute distress and well developed Nutritional Appearance: well nourished Orientation/consciousness: patient oriented x3 HENMT Head: Yes normocephalic and Yes atraumatic Eyes General: appearance normal, both eyes and all related structures Pupils: Equal, round and reactive pupils present EOM: EOMs intact bilaterally Resp Effort & Inspection: normal respiratory effort Auscultation: clear to auscultation bilaterally Cardio Rate: regular rate Rhythm: regular rhythm Heart sounds: S1 normal heart sound present, S2 normal heart sound present, no gallops, no murmurs and no rubs GI Palpation (GI): No Abdominal aortic bruit present, Soft to palpation, nontender, No hepatosplenomegaly present and No Rebound tenderness present Auscultation: normal bowel sounds General: Yes no CVA tenderness Back/Spine/Pelvis Back: no CVA tenderness Cervical Spine: cervical ROM normal and No Cervical spine tenderness Thoracic/Lumbar Spine: thoraco-lumbar ROM normal, No pain with thoraco-lumbar ROM, No thoracic spinal tenderness and No lumbar spinal tenderness Extrem General: Yes normal to inspection, No edema and No calf tenderness Skin General: warm and dry. Normal skin color. Normal skin turgor Neuro General: patient oriented x3, gait normal and no focal neuro deficit Cranial nerves: Yes Equal, round and reactive pupils present Cognition (Neuro): normal cognition Gait exam (Neuro): Normal gait present Sensory Exam: No Sensory deficit (Neuro) Psych Appearance: grossly normal Affect: normal affect Attitude: cooperative Thought process: Normal thought process present Results AMB Hemoglobin A1c AMB Hemoglobin A1c 6.2 % Last Edit by Meg Tenorio MA on 02/15/25 13:09 Coding Level of Care Code Est Pt Level 3 (82383) Diagnoses Primary hypertension I10 Hypertension type: primary hypertension Type 2 diabetes mellitus E11.9 Hyperlipidemia E78.5 Microalbuminuria R80.9 Anxiety and depression F41.9; F32.A Additional Codes KEITH-7 Assessment Billing - KEITH-7 Assessment Tool: KEITH-7 Assessment 38810 ([id number]) PHQ-9 - 87080 - PHQ-9 Billing: Yes ([id number]) Assessment & Plan Assessment & Plan (1) Hypertension: Code(s): I10 - Essential (primary) hypertension Category: Medical Qualifiers: Hypertension type: primary hypertension Qualified Code(s): I10 - Essential (primary) hypertension Plan: Resting blood pressure is 120/60, within goal of less than 130/80. Continue current treatment regimen. Low-sodium diet encouraged. Follow-up in 3 months or sooner with symptoms or concerns. Verbalized understanding and agreed with the plan. (2) Type 2 diabetes mellitus: Code(s): E11.9 - Type 2 diabetes mellitus without complications Category: Medical Plan: A1c today 6.2%, within goal of less than 7.0%. Previous A1c was 6.7%. Continue current treatment regimen. ADA diet and routine exercise encouraged. Follow-up in 3 months. Verbalized understanding and agreed with the plan. (3) Hyperlipidemia: Code(s): E78.5 - Hyperlipidemia, unspecified Category: Medical Plan: Lipid panel blood work not done. Continue current treatment regimen. Advised to perform lipid panel blood work as planned. Will review results and make changes as needed. Verbalized understanding and agreed with the plan. (4) Microalbuminuria: Code(s): R80.9 - Proteinuria, unspecified Category: Medical Plan: Urine microalbumin lab work not performed. Encouraged to get lab work done. Will review results and make changes as needed. Verbalized understanding and agreed with the plan. (5) Anxiety and depression: Code(s): F41.9 - Anxiety disorder, unspecified; F32.A - Depression, unspecified Category: Medical Plan: Reports controlled anxiety and depressive symptoms. PHQ-9 and KEITH-7 scores revealed mild depression and anxiety. Continue current treatment regimen. Routine exercise encouraged. Follow-up in 3 months. Verbalized understanding and agreed with the plan. Orders: Orders AMB Hemoglobin A1c Today Z13.9 - Encounter for screening, unspecified
[2025-02-15 12:57] VITALS: BP 135/65; PULSE 65; RESP 16; TEMP 36.6; O2SAT 96; BMI 28.6
[2025-02-15 13:11] VITALS: BP 120/60
== END 2025-02-15 13:19 | disposition home or self-care (01) ==
LOC: HO.HMCFM 12:42
PROVIDERS: PCP Nurse Practitioner Family; Visit Provider Nurse Practitioner Family
DX: I10 Essential (primary) hypertension (principal); E11.9 Type 2 diabetes mellitus without complications; E78.5 Hyperlipidemia, unspecified; R80.9 Proteinuria, unspecified; F41.9 Anxiety disorder, unspecified; F32.A Depression, unspecified; Z13.9 Encounter for screening, unspecified

== ENCOUNTER → 2025-02-15 12:41 | Outpatient (BNVA) | payer MEDICARE, SELFPAY | PROVIDERS: PCP Nurse Practitioner Family; Visit Provider Nurse Practitioner Family | DX: I10 Essential (primary) hypertension (principal); E11.9 Type 2 diabetes mellitus without complications; E78.5 Hyperlipidemia, unspecified; F41.9 Anxiety disorder, unspecified; F32.A Depression, unspecified; R80.9 Proteinuria, unspecified | CPT/HCPCS: 83036; 96127; 99212 ==